=== PATIENT | female | born 1960 | race Caucasian/White ===

== ENCOUNTER → 2017-09-26 | Day surgery (SDC) | payer BC ==
[~2017-09-26] MED LIST: LIDOCAINE 1% PF 2 ML VIAL. ID; LIDOCAINE 2% PF Vial for OR 5 ML VIAL.; MORPHINE SULFATE 2 MG/ML DISP.SYRIN. IV; ONDANSETRON PF 4 MG/2 ML VIAL. IV; PROCHLORPERAZINE 10 MG/2 ML VIAL. IV; PROPOFOL 40 ML IV; fentaNYL PF VIAL 100 MCG/2 ML VIAL IV
[2017-09-26] MEDS: IV RINGERS,LACTATED 1000ML 1,000 ML IV (11:36)
== END ==
LOC: SURG 11:03
DX: C18.7 Malignant neoplasm of sigmoid colon (principal); D12.5 Benign neoplasm of sigmoid colon; K64.1 Second degree hemorrhoids; I10 Essential (primary) hypertension; E66.9 Obesity, unspecified; M19.90 Unspecified osteoarthritis, unspecified site; Z98.890 Other specified postprocedural states; Z90.49 Acquired absence of other specified parts of digestive tract; Z72.89 Other problems related to lifestyle; Z87.891 Personal history of nicotine dependence; Z87.39 Personal history of other diseases of the musculoskeletal system and connective tissue
CPT/HCPCS: 45380; 45385; 88305; J2704

== ENCOUNTER → 2018-11-14 | Day surgery (SDC) | payer BC ==
[~2018-11-14] MED LIST changes: +ASPI-630 PO; +CARV6.2511 PO; +HYDR12.575 PO; +IV RINGERS,LACTATED 1000ML 1,000 ML IV SCH; -LIDOCAINE 1% PF 2 ML VIAL. ID; +LIDOCAINE 1% PF 2 ML VIAL. ID PRN; +LIDOCAINE 2% PF 5 ML VIAL. ONE; -LIDOCAINE 2% PF Vial for OR 5 ML VIAL.; +LISI-338 PO; +MELO15TA23 PO; +MIDAZOLAM HCL/PF 2 MG/2 ML VIAL. IV PRN; -MORPHINE SULFATE 2 MG/ML DISP.SYRIN. IV; +OMEP20TA63 PO; -ONDANSETRON PF 4 MG/2 ML VIAL. IV; -PROCHLORPERAZINE 10 MG/2 ML VIAL. IV; +PROPOFOL 20 ML IV ONE; -PROPOFOL 40 ML IV; +TRAM50TA PO; -fentaNYL PF VIAL 100 MCG/2 ML VIAL IV; +fentaNYL PF VIAL 100 MCG/2 ML VIAL IV PRN
[2018-11-14 09:56] VITALS: BP 129/75
--- NOTE | 2018-11-14 18:18 | HP ---
ADMIT DATE: 11/14/2018 REFERRING PHYSICIAN: Dione Atwood MD REASON FOR ADMISSION: Colon cancer followup. HISTORY OF PRESENT ILLNESS: A 57-year-old female with past medical history significant for hypertension, osteoarthrosis, history of colon cancer, status post resection, is seen for interval colon exam. Bowel habits are regular without diarrhea or constipation. There has been no melena and/or hematochezia. Weight and appetite are stable. She has recovered well from her surgery and has no additional complaints. PAST MEDICAL HISTORY: Hypertension, colon cancer and osteoarthrosis. ALLERGIES: None. MEDICATIONS: Aspirin, carvedilol, hydrochlorothiazide, lisinopril, meloxicam, omeprazole and tramadol. FAMILY AND SOCIAL HISTORY: She has family history of hypertension in both parents, diabetes with her mother. SOCIAL HISTORY: She is a smoker. Alcohol, social use. MEDICATIONS: As stated. PAST SURGICAL HISTORY: Colon resection and cholecystectomy. REVIEW OF SYSTEMS: Per records. PHYSICAL EXAMINATION: GENERAL: Reveals a well-nourished, well-developed female, alert, cooperative and in no acute distress. VITAL SIGNS: Temperature is 98, pulse 66 and respirations 20. HEENT: Normocephalic, atraumatic head. Pupils and extraocular muscles are not tested. Sclerae anicteric. NECK: Supple. LUNGS: Clear. CARDIOVASCULAR: Reveals an S1, S2 without S3, S4 or appreciable murmur. ABDOMEN: Reveals a soft abdomen, normal bowel sounds, without appreciable hepatosplenomegaly. EXTREMITIES: Reveals no cyanosis, clubbing or edema. IMPRESSION AND PLAN: History of colon cancer, status post resection. Surveillance exam is recommended at this time. Risks and benefits of procedure including risk of hemorrhage and perforation have been discussed. The patient is willing to proceed. SOFIA SERRANO MD DR: DYLAN/candido JOB#: [id number] / [id number]
== END ==
LOC: SURG 07:55
PROVIDERS: ATTEND Internal Medicine Gastroenterology
DX: Z12.11 Encounter for screening for malignant neoplasm of colon (principal); K64.0 First degree hemorrhoids; K63.89 Other specified diseases of intestine; I10 Essential (primary) hypertension; F17.210 Nicotine dependence, cigarettes, uncomplicated; Z85.038 Personal history of other malignant neoplasm of large intestine; Z87.39 Personal history of other diseases of the musculoskeletal system and connective tissue; Z72.89 Other problems related to lifestyle; Z90.49 Acquired absence of other specified parts of digestive tract; Z98.0 Intestinal bypass and anastomosis status
CPT/HCPCS: 45378; J2001; J2704

== ENCOUNTER 2020-09-23 19:38 | Inpatient (IN) | payer BC ==
[~2020-09-23] VITALS: Ht 167.6 cm; Wt 177.5 kg
[~2020-09-23 19:38] MED LIST changes: -IV RINGERS,LACTATED 1000ML 1,000 ML IV SCH; -LIDOCAINE 1% PF 2 ML VIAL. ID PRN; -LIDOCAINE 2% PF 5 ML VIAL. ONE; -LISI-338 PO; +LISI-517 PO; -MIDAZOLAM HCL/PF 2 MG/2 ML VIAL. IV PRN; -PROPOFOL 20 ML IV ONE; -fentaNYL PF VIAL 100 MCG/2 ML VIAL IV PRN
[2020-09-23] MEDS ORDERED: fentaNYL PF VIAL 100 MCG/2 ML VIAL IM ONE (20:00)
--- NOTE | 2020-09-23 22:08 | PHYS DOC ---
Past Medical History Past Medical History: Cancer, Hypertension, Other Additional Past Medical Histor: COLON CA,CHRONIC KNEE PAIN,CARDIOMYOPATHY Past Surgical History: Cholecystectomy, Tonsillectomy, Other Additional Past Surgical Histo: COLON RESECTION Smoking Status: Never Smoker Alcohol Use: None General Adult EDM: Chief Complaint: LOWER EXT PAIN HPI: HPI: Patient is a 59 year old [f__sex] who presents with [] Review of Systems: Review of Systems: Constitutional: Denies fever or chills Eyes: Denies redness or eye pain HENT: Denies nasal congestion or sore throat Respiratory: Denies cough or shortness of breath Cardiovascular: Denies chest pain or palpitations GI: Denies abdominal pain, nausea, or vomiting : Denies dysuria or hematuria Musculoskeletal: Denies back pain; reports left knee pain Integument: Denies rash or skin lesions Neurologic: Denies headache, focal weakness or sensory changes Complete systems were reviewed and found to be within normal limits, except as documented in this note. Heart Score: C/O Chest Pain: N/A Current Medications: Current Medications Medications (Trade) Dose Ordered Sig/Christopher Start Time Stop Time Status Last Admin Dose Admin Fentanyl Citrate (Fentanyl 2ml Vial) 50 mcg Q2HR PRN 09/23/20 22:15 09/24/20 22:14 UNV Ondansetron HCl (Zofran) 4 mg PRN Q8HRS PRN 09/23/20 22:15 09/24/20 22:14 UNV Allergies: Allergies: Allergies Coded Allergies Type Severity Reaction Last Updated Verified No Known Drug Allergies 11/14/18 No Physical Exam: PE: Constitutional: Well developed, morbidly obese, no acute distress, non-toxic appearance HENT: Normocephalic, atraumatic Eyes: Conjunctiva normal, no discharge Neck: Normal range of motion, supple Lungs & Thorax: No respiratory distress, equal chest rise and fall Skin: Warm, dry, no erythema, no rash Extremities: Left anterior knee tenderness, ROM limited secondary to pain, left DP and PT +2 Neurologic: Alert and oriented X 3, no focal deficits noted Psychologic: Affect normal, judgment normal Current Patient Data: Vital Signs: Vital Signs Date Time Temp Pulse Resp B/P (MAP) Pulse Ox O2 Delivery O2 Flow Rate FiO2 09/23/20 20:52 17 97 Room Air 09/23/20 19:38 98.2 76 198/91 (126) 98.2 EKG: EKG: [] Radiology/Procedures: Radiology/Procedures: [] Course & Med Decision Making: Course & Med Decision Making Pertinent Labs and Imaging studies reviewed. (See chart for details) Patient requiring admission for further evaluation and treatment. Discussed with Dr. De La Torre (hospitalist) who is in agreement with admission. Orthopedic consult ordered. Discussed findings and plan with patient, who acknowledges understanding and agreement. Tee Disclaimer: Tee Disclaimer: This electronic medical record was generated, in whole or in part, using a voice recognition dictation system. Splinting Splinting : Location: Left knee Pre-Made Type: YVROSE bandage Pre-Proc Neuro Vasc Exam: normal Post-Proc Neuro Vasc Exam: normal, unchanged from pre-exam Departure Departure Impression: Primary Impression: Intractable pain Additional Impression: Knee pain, left Qualified Codes: M25.562 - Pain in left knee; G89.29 - Other chronic pain Disposition: ADMITTED INPATIENT Admitting Physician: SALAS Cleaning) Condition: STABLE Referrals: PAN NUÑEZ MD (PCP) JOSE ALBERTO LOPEZ DO Sep 23, 2020 22:07
[2020-09-23] MEDS ORDERED: fentaNYL PF VIAL 100 MCG/2 ML VIAL IV PRN (22:15)
[2020-09-23] MEDS ORDERED: ONDANSETRON PF 4 MG/2 ML VIAL. IV PRN (22:15)
[2020-09-23] MEDS ORDERED: fentaNYL PF VIAL 100 MCG/2 ML VIAL IVP ONE (22:30)
--- NOTE | 2020-09-23 23:23 | RAD ---
EXAM: AP, lateral and oblique views of the left knee DATE: 09/23/2020 8:12 PM CLINICAL INDICATION: Reason: Chronic pain / Spl. Instructions: / History: COMPARISON: None. FINDINGS: Negative for acute or subacute fracture. Moderate to severe medial joint space narrowing with tricom partmental osteophytes. Negative focal soft tissue swelling. Negative retained radiopaque foreign bod y. There is no large joint effusion. IMPRESSION: 1. No evidence of acute fracture or dislocation. 2. Severe left knee joint osteoarthritis Electronically signed by: Cruz Sethi MD (09/23/2020 11:21 PM) MARIANO
[2020-09-23 23:56] LABS: BASO # 0.1 x10^3/uL (0.0-0.2); BASO % 1 % (0-3); EOS # 0.1 x10^3/uL (0.0-0.7); EOS % 1 % (0-3); HEMATOCRIT 43.4 % (36.0-47.0); HEMOGLOBIN 14.6 g/dL (12.0-15.5); LYMPH % 17 % (24-48); MEAN CORPUSCULAR HEMOGLOBIN 31 pg (25-35); MEAN CORPUSCULAR HGB CONC 34 g/dL (31-37); MEAN CORPUSCULAR VOLUME 93 fL (79-100); MONO # 0.9 x10^3/uL (0.0-1.1); MONO % 7 % (0-9); NEUT # 8.9 x10^3/uL (1.8-7.7); NEUT % 75 % (31-73); PLATELET COUNT 424 x10^3/uL (140-400); RED BLOOD COUNT 4.67 x10^6/uL (3.50-5.40); RED CELL DISTRIBUTION WIDTH 14.1 % (11.5-14.5); WHITE BLOOD COUNT 11.9 x10^3/uL (4.0-11.0)
[2020-09-24] VITALS (7 sets, daily range): BP systolic 114–154; BP diastolic 60–87
--- NOTE | 2020-09-24 | NUR ---
ADMISSION Pt arrival to unit from ER at this time via ER cart. Pt unable to transfer her self from cart to unit bed so multiple staff members had to slide her over to unit bed, room 205. Pt has significant Left knee pain with movement 8/. PRN pain medication given for this, see MAR with improvement in pain level. Pt states she heard a loud "pop" noise come from her left knee when transferring from a wheelchair today at home with significant pain following that prompted her to come to the hospital. For the past two weeks, pain in that knee has been pretty debilitating for her and she had an orthopedic consult scheduled for this coming week for it. She also saw her primary care physician a few days ago who prescribed prednisone for possible arthritis relief and hydrocodone prn for the pain. Pt oriented to unit settings, call light, high fall precautions. Pt verbalized understanding. Items and call light in reach. Admission questions completed with pt at this time.
[2020-09-24 00:06] LABS: CALCIUM 10.6 mg/dL (8.5-10.1); CREATININE 1.6 mg/dL (0.6-1.0); POTASSIUM 4.9 mmol/L (3.5-5.1)
[2020-09-24 00:13] LABS: ALBUMIN 4.5 g/dL (3.4-5.0); ALBUMIN/GLOBULIN RATIO 1.1 (1.0-1.7); MAGNESIUM 2.1 mg/dL (1.8-2.4); TOTAL BILIRUBIN 0.6 mg/dL (0.2-1.0); TOTAL PROTEIN 8.6 g/dL (6.4-8.2)
[2020-09-24] MEDS: HYDROmorphone 2 MG/ML VIAL IVP PRN ×5 (00:48→21:33)
[2020-09-24] MEDS ORDERED: METH4TAB6 PO (03:13)
[2020-09-24] MEDS ORDERED: HYDR-2767 PO (03:13)
[2020-09-24] MEDS: methylPREDNISolone SOD SUCC PF 40 MG/ML VIAL. IV SCH ×3 (09:02→20:57)
--- NOTE | 2020-09-24 11:30 | PDOC1 ---
History and Physical Date of Admission Date of Admission DATE: 09/24/20 TIME: 11:29 Identification/Chief Complaint Chief Complaint left knee pain with movement 11/29 History of Present Illness History of Present Illness 59 YR OLD FEMALE seen in ER with severe left kneev pain, unable to safely ambulate, cr elevated, is a high fall risk, ortho and nephrology consulted pain has been more severe x 3 weeks, very severe x 2 days, heard knee " pop" 2 days ago, now unable to raise knee, pain worse with any movement, MRI KNEE PEN DING ortho consult PT/OT FALL PRECAUTIONS PAIN CONTROL dvt prophylaxis Avoid nephrotoxins, hold babs trend renal fx Nephrology consult avoid nephrotoxins Past Medical History Past Medical History Past Medical History Past Medical History: Cancer, Hypertension, Other Additional Past Medical Histor: COLON CA,CHRONIC KNEE PAIN,CARDIOMYOPATHY Past Surgical History: Cholecystectomy, Tonsillectomy, Other Additional Past Surgical Histo: COLON RESECTION Smoking Status: Smoker Alcohol Use: social PAST MEDICAL HISTORY: Hypertension, colon cancer and osteoarthrosis. ALLERGIES: None. MEDICATIONS: Aspirin, carvedilol, hydrochlorothiazide, lisinopril, meloxicam, omeprazole and tramadol. FAMILY AND SOCIAL HISTORY: She has family history of hypertension in both parents, diabetes with her mother. SOCIAL HISTORY: She is a smoker. Alcohol, social use. fhx obesity Renal/: Chronic renal insuff Family History Family History: Hypertension Social History Smoke: No ALCOHOL: none Drugs: None Current Problem List Problem List Problems Medical Problems: (1) Intractable pain Status: Acute (2) Knee pain, left Status: Acute Current Medications Current Medications Current Medications Fentanyl Citrate (Fentanyl 2ml Vial) 75 mcg 1X ONCE IM Last administered on 09/23/20at 20:22; Start 09/23/20 at 20:00; Stop 09/23/20 at 20:01; Status DC Fentanyl Citrate (Fentanyl 2ml Vial) 50 mcg 1X ONCE IVP Last administered on 09/23/20at 22:30; Start 09/23/20 at 22:30; Stop 09/23/20 at 22:31; Status DC Ondansetron HCl (Zofran) 4 mg PRN Q8HRS PRN IV NAUSEA/VOMITING 1ST CHOICE; Start 09/23/20 at 22:15; Stop 09/24/20 at 22:14 Fentanyl Citrate (Fentanyl 2ml Vial) 50 mcg PRN Q2HRS PRN IV SEVERE PAIN 7-10; Start 09/23/20 at 22:15; Stop 09/23/20 at 23:55; Status DC Hydromorphone HCl (Dilaudid) 0.5 mg PRN Q4HRS PRN IVP SEVERE PAIN 7-10 Last administered on 09/24/20at 09:04; Start 09/24/20 at 00:00 Methylprednisolone Sodium Succinate (SOLU-Medrol 40MG VIAL) 40 mg Q8HRS IV Last administered on 09/24/20at 09:02; Start 09/24/20 at 08:30 Active Scripts Active Reported Methylprednisolone 4 Mg Tab.ds.pk 1 Tab PO UD Hydrocodone-Acetamin 10-325 mg (Hydrocodone/Acetaminophen) 1 Each Tablet 1 Tab PO PRN Q6HRS PRN Tramadol Hcl 50 Mg Tablet 50 Mg PO Q6HRS PRN Prilosec Otc (Omeprazole Magnesium) 20 Mg Tablet.dr 20 Mg PO DAILY Aspirin 81 Mg Tab.chew 81 Mg PO HEART Hydrochlorothiazide Capsule (Hydrochlorothiazide) 12.5 Mg Capsule 25 Mg PO DAILY Meloxicam 15 Mg Tablet 15 Mg PO DAILY Carvedilol (Carvedilol) 6.25 Mg Tablet 6.25 Mg PO BIDWMEALS Lisinopril 5 Mg Tablet 5 Mg PO DAILY Allergies Allergies: Coded Allergies: No Known Drug Allergies (Unverified , 11/14/18) ROS Review of System Constitutional: Denies fever or chills Eyes: Denies redness or eye pain HENT: Denies nasal congestion or sore throat Respiratory: Denies cough or shortness of breath Cardiovascular: Denies chest pain or palpitations GI: Denies abdominal pain, nausea, or vomiting : Denies dysuria or hematuria Musculoskeletal: Denies back pain;// reports severe left knee pain Integument: Denies rash or skin lesions Neurologic: Denies headache, focal weakness or sensory changes 14 pt systems were reviewed and found to be within normal limits, except as doc umented General: No: Chills, Night Sweats, Fatigue, Malaise, Appetite, Other ALLERGY AND IMMUNOLOGY: No: Hives, Insect Bite Sensitivity, Itchy/Watery Eyes, Nasal Congestion, Post Nasal Drip, Seasonal Allergies, Other Hematological and Lymphatic: No: Bleeding Problems, Blood Clots, Blood Transfusions, Brusing, Night Sweats, Pallor, Swollen Lymph Nodes, Other Respiratory: No: Cough, Hemoptysis, Orthopnea, Pleuritic Pain, Shortness of breath, SOB with excertion, Sputum Changes, Stridor, Tachypnea, Wheezing, Other Cardiovascular: No Chest Pain, No Palpitations, No Orthopnea, No Paroxysmal Noc. Dyspnea, No Edema, No Lt Headedness, No Other Musculoskeletal: Yes Gait Disturbance, Yes Joint Pain, Yes Joint Stiffness, Yes Joint Swelling, Yes Muscular Weakness, Yes Pain In: (left knee) Neurological: Yes Gait Disturbance; No Behavorial Changes, No Bowel/Bladder ControlChng, No Confusion, No Dizziness, No Headaches, No Impaired Coord/balance, No Memory Loss, No Numbness/Tingling, No Seizures, No Speech Problems, No Tremors, No Visual Changes, No Weakness, No Other Skin: No Dry Skin, No Eczema, No Hair Changes, No Lumps, No Mole Changes, No Mottling, No Nail Changes, No Pruritus, No Rash, No Skin Lesion Changes, No Other, No Acne Physical Exam General: Alert, Oriented X3, Cooperative, No acute distress, mild distress HEENT: Atraumatic, PERRLA, EOMI, Mucous membr. moist/pink Lungs: Clear to auscultation, Normal air movement Heart: S1S2, RRR, no thrills, no rubs, no gallops Breasts: Not examined Abdomen: Normal bowel sounds, Soft, No tenderness, No hepatosplenomegaly Rectal Exam: not examined Extremities: No clubbing, No cyanosis Skin: No rashes Neuro: Normal speech, Sensation intact, Cranial nerves 3-12 NL Psych/Mental Status: Mental status NL, Mood NL Vitals Vitals Vital Signs Date Time Temp Pulse Resp B/P (MAP) Pulse Ox O2 Delivery O2 Flow Rate FiO2 09/24/20 09:34 98 Room Air 09/24/20 07:00 97.9 74 20 114/64 (81) 97.9 Labs Labs Laboratory Tests Test 09/23/20 23:47 White Blood Count 11.9 x10^3/uL (4.0-11.0) Red Blood Count 4.67 x10^6/uL (3.50-5.40) Hemoglobin 14.6 g/dL (12.0-15.5) Hematocrit 43.4 % (36.0-47.0) Mean Corpuscular Volume 93 fL (79-100) Mean Corpuscular Hemoglobin 31 pg (25-35) Mean Corpuscular Hemoglobin Concent 34 g/dL (31-37) Red Cell Distribution Width 14.1 % (11.5-14.5) Platelet Count 424 x10^3/uL (140-400) Neutrophils (%) (Auto) 75 % (31-73) Lymphocytes (%) (Auto) 17 % (24-48) Monocytes (%) (Auto) 7 % (0-9) Eosinophils (%) (Auto) 1 % (0-3) Basophils (%) (Auto) 1 % (0-3) Neutrophils # (Auto) 8.9 x10^3/uL (1.8-7.7) Lymphocytes # (Auto) 2.0 x10^3/uL (1.0-4.8) Monocytes # (Auto) 0.9 x10^3/uL (0.0-1.1) Eosinophils # (Auto) 0.1 x10^3/uL (0.0-0.7) Basophils # (Auto) 0.1 x10^3/uL (0.0-0.2) Sodium Level 140 mmol/L (136-145) Potassium Level 4.9 mmol/L (3.5-5.1) Chloride Level 104 mmol/L (98-107) Carbon Dioxide Level 24 mmol/L (21-32) Anion Gap 12 (6-14) Blood Urea Nitrogen 40 mg/dL (7-20) Creatinine 1.6 mg/dL (0.6-1.0) Estimated GFR (Cockcroft-Gault) 33.0 BUN/Creatinine Ratio 25 (6-20) Glucose Level 104 mg/dL (70-99) Calcium Level 10.6 mg/dL (8.5-10.1) Magnesium Level 2.1 mg/dL (1.8-2.4) Total Bilirubin 0.6 mg/dL (0.2-1.0) Aspartate Amino Transf (AST/SGOT) 19 U/L (15-37) Alanine Aminotransferase (ALT/SGPT) 29 U/L (14-59) Alkaline Phosphatase 107 U/L (46-116) Total Protein 8.6 g/dL (6.4-8.2) Albumin 4.5 g/dL (3.4-5.0) Albumin/Globulin Ratio 1.1 (1.0-1.7) Laboratory Tests Test 09/23/20 23:47 White Blood Count 11.9 x10^3/uL (4.0-11.0) Red Blood Count 4.67 x10^6/uL (3.50-5.40) Hemoglobin 14.6 g/dL (12.0-15.5) Hematocrit 43.4 % (36.0-47.0) Mean Corpuscular Volume 93 fL (79-100) Mean Corpuscular Hemoglobin 31 pg (25-35) Mean Corpuscular Hemoglobin Concent 34 g/dL (31-37) Red Cell Distribution Width 14.1 % (11.5-14.5) Platelet Count 424 x10^3/uL (140-400) Neutrophils (%) (Auto) 75 % (31-73) Lymphocytes (%) (Auto) 17 % (24-48) Monocytes (%) (Auto) 7 % (0-9) Eosinophils (%) (Auto) 1 % (0-3) Basophils (%) (Auto) 1 % (0-3) Neutrophils # (Auto) 8.9 x10^3/uL (1.8-7.7) Lymphocytes # (Auto) 2.0 x10^3/uL (1.0-4.8) Monocytes # (Auto) 0.9 x10^3/uL (0.0-1.1) Eosinophils # (Auto) 0.1 x10^3/uL (0.0-0.7) Basophils # (Auto) 0.1 x10^3/uL (0.0-0.2) Sodium Level 140 mmol/L (136-145) Potassium Level 4.9 mmol/L (3.5-5.1) Chloride Level 104 mmol/L (98-107) Carbon Dioxide Level 24 mmol/L (21-32) Anion Gap 12 (6-14) Blood Urea Nitrogen 40 mg/dL (7-20) Creatinine 1.6 mg/dL (0.6-1.0) Estimated GFR (Cockcroft-Gault) 33.0 BUN/Creatinine Ratio 25 (6-20) Glucose Level 104 mg/dL (70-99) Calcium Level 10.6 mg/dL (8.5-10.1) Magnesium Level 2.1 mg/dL (1.8-2.4) Total Bilirubin 0.6 mg/dL (0.2-1.0) Aspartate Amino Transf (AST/SGOT) 19 U/L (15-37) Alanine Aminotransferase (ALT/SGPT) 29 U/L (14-59) Alkaline Phosphatase 107 U/L (46-116) Total Protein 8.6 g/dL (6.4-8.2) Albumin 4.5 g/dL (3.4-5.0) Albumin/Globulin Ratio 1.1 (1.0-1.7) Images Images [facility] Accession Number: [id number] . 01 Material submitted: . PART A: SIGMOID POLYPS 20-40 CM PART B: SIGMOID COLON MASS . 01 Clinical history: . CRCS/Rectal bleed . 02 Diagnosis: A. Colon biopsies, sigmoid polyps 20-40 cm: - Tubular and tubulovillous adenomas. . B. Colon biopsies, sigmoid colon mass: - Adenocarcinoma, moderately-well differentiated. [facility]/09/27/2017 PATIENT: NHI BARNES ACCOUNT: [id number] : 1960 LOCATION: [facility] AGE: 59 SEX: F EXAM STATUS: ADM IN ORD. PHYSICIAN: JOSE ALBERTO LOPEZ DO REASON: Chronic pain PROCEDURE: KNEE LEFT 3V EXAM: AP, lateral and oblique views of the left knee DATE: 09/23/2020 8:12 PM CLINICAL INDICATION: Reason: Chronic pain / Spl. Instructions: / History: COMPARISON: None. FINDINGS: Negative for acute or subacute fracture. Moderate to severe medial joint space narrowing with tricompartmental osteophytes. Negative focal soft tissue swelling. Negative retained radiopaque foreign body. There is no large joint effusion. IMPRESSION: 1. No evidence of acute fracture or dislocation. 2. Severe left knee joint osteoarthritis Electronically signed by: Cruz Magaña MD (09/23/2020 11:21 PM) [facility] DICTATED and SIGNED BY: CRUZ MAGAÑA MD DATE: 09/23/20 [id number] VTE Prophylaxis Ordered VTE Prophylaxis Devices: Contraindicated VTE Pharmacological Prophylaxi: Yes Assessment/Plan Assessment/Plan IMPRESSION: Gait instability, high fall risk Intractable left knee pain Severe left knee joint osteoarthritis hx colon ADENOCARCINOMA Super Morbid obesity MAURICIO HTN plan admit ortho consult PT/OT FALL PRECAUTIONS PAIN CONTROL dvt prophylaxis Avoid nephrotoxins, hold babs trend renal fx Nephrology consult D/W RN Justifications for Admission Other Justification MATTHEW JOHNSON MD Sep 24, 2020 11:30
[2020-09-24] MEDS ORDERED: LISINOPRIL 5 MG TABLET. PO SCH (12:00)
[2020-09-24] MEDS: ASPIRIN CHEWABLE 81 MG TABLET. PO SCH (12:52)
[2020-09-24] MEDS: hydroCHLOROthiazide 12.5 MG CAPSULE PO SCH (12:52)
[2020-09-24] MEDS: PANTOPRAZOLE 40 MG TABLET.DR. PO SCH (12:52)
[2020-09-24] MEDS: CARVEDILOL 6.25 MG TABLET. PO SCH ×2 (12:53→17:27)
[2020-09-24] MEDS: MELOXICAM 7.5 MG TABLET PO SCH (12:55)
[2020-09-24] MEDS ORDERED: diphenhydrAMINE 50 MG/ML VIAL IVP PRN (13:30)
[2020-09-24] MEDS ORDERED: SODIUM PHOSPHATES 19/7GM 133 ML ENEMA. PR PRN (13:30)
[2020-09-24] MEDS ORDERED: ALBUTEROL SULFATE 2.5 MG/3 ML NEBU. NEB PRN (13:30)
[2020-09-24] MEDS ORDERED: guaiFENesin ORAL 200 MG/10 ML LIQUID. PO PRN (13:30)
[2020-09-24] MEDS ORDERED: ACETAMINOPHEN 325 MG TABLET. PO PRN (13:30)
[2020-09-24] MEDS ORDERED: 0.9 % SODIUM CHLORIDE 10 ML DISP.SYRIN. IV PRN (13:30)
[2020-09-24] MEDS ORDERED: MAG HYDROX/ALUMINUM HYD/SIMETH 30 ML ORAL.SUSP PO PRN (13:30)
[2020-09-24] MEDS ORDERED: cloNIDine HCL 0.1 MG TABLET PO PRN (13:30)
[2020-09-24 15:42] LABS: BILIRUBIN,URINE NEGATIVE (NEG); CLARITY,URINE CLEAR; COLOR,URINE YELLOW; NITRITE,URINE NEGATIVE (NEG); PROTEIN,URINE NEGATIVE (NEG-TRACE); UROBILINOGEN,URINE 0.2 mg/dL (0.2 mg/dL)
[2020-09-24 15:51] LABS: HYALINE CASTS, URINE MODERATE /HPF
[2020-09-24 15:52] LABS: BACTERIA,URINE 0 /HPF (0-FEW); RBC,URINE 0 /HPF (0-2); WBC,URINE 0 /HPF (0-4)
[2020-09-24] MEDS: HYDROcodone/APAP 10/325 1 TAB TABLET PO PRN (17:28)
--- NOTE | 2020-09-24 18:19 | RAD ---
EXAM: Renal sonogram. HISTORY: Renal insufficiency. TECHNIQUE: Sonographic imaging of the kidneys and bladder was performed. COMPARISON: None. FINDINGS: The kidneys are normal in size. No solid or cystic renal lesion is seen. There is no hydron ephrosis. The bladder is unremarkable. The prevoid bladder volume is 50 cc. The ureteral jets are bot h seen. IMPRESSION: Sonographically unremarkable kidneys. Electronically signed by: Pao Steele MD (09/24/2020 6:17 PM) [facility]
[2020-09-24] MEDS: ZOLPIDEM 5 MG TABLET. PO PRN (21:05)
--- NOTE | 2020-09-24 21:48 | PDOC2 ---
Consult: Patient seen and evaluated September 24, 2020 at 7:15 AM Patient seen and evaluated secondary to intractable left knee pain. No specific injury. She has had pain and known arthritis for the last 6 months. She is morbidly obese. She states over the last 3 to 4 days she has been progressively having worsening pain and difficulty with ambulation. Denies any fever chills or constitutional symptoms of infection or injury. PAST MEDICAL/SURGICAL/FAMILY HISTORY/SOCIAL HISTORY/ AND ROS were reviewed on intake to include multiple system review. Copied to EHR. EXAM: -------- Well-nourished well-developed patient General: No acute distress. HEENT: Normocephalic. Respiratory: Respirations are non-labored. Cardiovascular: No edema. Abdomen: soft Neurologic: Alert. Psychiatric: Cooperative. Left knee reveals normal contour and the skin is intact. There is tenderness o surya the joint line. Crepitation through range of motion. Positive Apley's. Limited range of motion although there is a positive bounce home test. Pain with patellofemoral compression. Strength is symmetric with the contralateral extremity. Negative Lelli test. Distal neurovascular status is intact. ASSESSMENT & PLAN: Left knee osteoarthritis severe in the face of morbid obesity I recommended some progressive steroids to see how she does over the next 24 hours and then have her work with physical therapy if her pain is improving. Unfortunately she is not a surgical candidate due to her obesity. We will continue to follow her care progression. CARTER NORWOOD DO Sep 24, 2020 21:48
[2020-09-25] MEDS: HYDROcodone/APAP 10/325 1 TAB TABLET PO PRN ×3 (02:41→20:48)
[2020-09-25] MEDS: HYDROmorphone 2 MG/ML VIAL IVP PRN ×3 (02:41→23:38)
[2020-09-25 03:00] VITALS: BP 160/84
[2020-09-25 04:25] LABS: BASO % 0 % (0-3); EOS % 0 % (0-3); HEMATOCRIT 38.4 % (36.0-47.0); HEMOGLOBIN 12.8 g/dL (12.0-15.5); LYMPH # 0.6 x10^3/uL (1.0-4.8); LYMPH % 6 % (24-48); MEAN CORPUSCULAR HEMOGLOBIN 31 pg (25-35); MEAN CORPUSCULAR HGB CONC 33 g/dL (31-37); MEAN CORPUSCULAR VOLUME 94 fL (79-100); MONO # 0.3 x10^3/uL (0.0-1.1); MONO % 3 % (0-9); NEUT % 91 % (31-73); PLATELET COUNT 344 x10^3/uL (140-400); RED CELL DISTRIBUTION WIDTH 14.2 % (11.5-14.5); WHITE BLOOD COUNT 9.9 x10^3/uL (4.0-11.0)
[2020-09-25 04:40] LABS: ALBUMIN 3.4 g/dL (3.4-5.0); ALBUMIN/GLOBULIN RATIO 0.9 (1.0-1.7); CALCIUM 9.6 mg/dL (8.5-10.1); CREATININE 1.5 mg/dL (0.6-1.0); GFR 35.5; TOTAL BILIRUBIN 0.4 mg/dL (0.2-1.0); TOTAL PROTEIN 7.2 g/dL (6.4-8.2)
[2020-09-25 05:27] LABS: % BANDS 5 % (0-9); % LYMPHS 6 % (24-48); % METAS 1 % (0-0); % OTHERS 1 % (0-0); % SEGS 87 % (35-66); PLT ESTIMATE ADEQUATE (ADEQUATE)
[2020-09-25] MEDS: methylPREDNISolone SOD SUCC PF 40 MG/ML VIAL. IV SCH ×3 (05:49→21:56)
[2020-09-25 07:00] VITALS: BP 170/91
[2020-09-25] MEDS: PANTOPRAZOLE 40 MG TABLET.DR. PO SCH (08:50)
[2020-09-25] MEDS: MELOXICAM 7.5 MG TABLET PO SCH (08:53)
[2020-09-25] MEDS: CARVEDILOL 6.25 MG TABLET. PO SCH ×2 (08:54→17:25)
[2020-09-25] MEDS: hydroCHLOROthiazide 12.5 MG CAPSULE PO SCH (08:55)
[2020-09-25] MEDS: ASPIRIN CHEWABLE 81 MG TABLET. PO SCH (08:55)
[2020-09-25 11:00] VITALS: BP 151/67
--- NOTE | 2020-09-25 11:02 | PDOC ---
PROGRESS NOTES Date of Service: DATE: 09/25/20 TIME: 10:50 Chief Complaint Chief Complaint VTE Prophylaxis Ordered VTE Prophylaxis Devices: Contraindicated VTE Pharmacological Prophylaxi: Yes Assessment/Plan Assessment/Plan IMPRESSION: Gait instability, high fall risk Intractable left knee pain Severe left knee joint osteoarthritis hx colon ADENOCARCINOMA Super Morbid obesity MAURICIO HTN plan admit ortho consult PT/OT FALL PRECAUTIONS PAIN CONTROL dvt prophylaxis Avoid nephrotoxins, hold babs trend renal fx Nephrology consult D/W RN Justifications for Admission Other Justification Discharge Recommendations * Acute Rehab facility Discharge Recommendation - DME * Rolling Walker needed * in order to complete ADLs * and ambulation safely History of Present Illness History of Present Illness Identification/Chief Complaint Chief Complaint left knee pain with movement 11/29 History of Present Illness History of Present Illness 59 YR OLD FEMALE seen in ER with severe left kneev pain, unable to safely ambulate, cr elevated, is a high fall risk, ortho and nephrology consulted pain has been more severe x 3 weeks, very severe x 2 days, heard knee " pop" 2 days ago, now unable to raise knee, pain worse with any movement, MRI KNEE PENDING ortho consult PT/OT FALL PRECAUTIONS PAIN CONTROL dvt prophylaxis Avoid nephrotoxins, hold babs trend renal fx Nephrology consult avoid nephrotoxins Past Medical History Past Medical History Past Medical History Past Medical History: Cancer, Hypertension, Other Additional Past Medical Histor: COLON CA,CHRONIC KNEE PAIN,CARDIOMYOPATHY Past Surgical History: Cholecystectomy, Tonsillectomy, Other Additional Past Surgical Histo: COLON RESECTION Smoking Status: Smoker Alcohol Use: social PAST MEDICAL HISTORY: Hypertension, colon cancer and osteoarthrosis. ALLERGIES: None. MEDICATIONS: Aspirin, carvedilol, hydrochlorothiazide, lisinopril, meloxicam, omeprazole and tramadol. FAMILY AND SOCIAL HISTORY: She has family history of hypertension in both parents, diabetes with her mother. SOCIAL HISTORY: She is a smoker. Alcohol, social use. fhx obesity Renal/: Chronic renal insuff Family History Family History: Hypertension Social History Smoke: No ALCOHOL: none Drugs: None Current Problem List Problem List Problems Medical Problems: (1) Intractable pain Status: Acute (2) Knee pain, left Status: Acute Current Medications Current Medications Current Medications Fentanyl Citrate (Fentanyl 2ml Vial) 75 mcg 1X ONCE IM Last administered on 09/23/20at 20:22; Start 09/23/20 at 20:00; Stop 09/23/20 at 20:01; Status DC Fentanyl Citrate (Fentanyl 2ml Vial) 50 mcg 1X ONCE IVP Last administered on 09/23/20at 22:30; Start 09/23/20 at 22:30; Stop 09/23/20 at 22:31; Status DC Ondansetron HCl (Zofran) 4 mg PRN Q8HRS PRN IV NAUSEA/VOMITING 1ST CHOICE; Start 09/23/20 at 22:15; Stop 09/24/20 at 22:14 Fentanyl Citrate (Fentanyl 2ml Vial) 50 mcg PRN Q2HRS PRN IV SEVERE PAIN 7-10; Start 09/23/20 at 22:15; Stop 09/23/20 at 23:55; Status DC Hydromorphone HCl (Dilaudid) 0.5 mg PRN Q4HRS PRN IVP SEVERE PAIN 7-10 Last administered on 09/24/20at 09:04; Start 09/24/20 at 00:00 Methylprednisolone Sodium Succinate (SOLU-Medrol 40MG VIAL) 40 mg Q8HRS IV Last administered on 09/24/20at 09:02; Start 09/24/20 at 08:30 Active Scripts Active Reported Methylprednisolone 4 Mg Tab.ds.pk 1 Tab PO UD Hydrocodone-Acetamin 10-325 mg (Hydrocodone/Acetaminophen) 1 Each Tablet 1 Tab PO PRN Q6HRS PRN Tramadol Hcl 50 Mg Tablet 50 Mg PO Q6HRS PRN Prilosec Otc (Omeprazole Magnesium) 20 Mg Tablet.dr 20 Mg PO DAILY Aspirin 81 Mg Tab.chew 81 Mg PO HEART Hydrochlorothiazide Capsule (Hydrochlorothiazide) 12.5 Mg Capsule 25 Mg PO DAILY Meloxicam 15 Mg Tablet 15 Mg PO DAILY Carvedilol (Carvedilol) 6.25 Mg Tablet 6.25 Mg PO BIDWMEALS Lisinopril 5 Mg Tablet 5 Mg PO DAILY Allergies Allergies: Coded Allergies: No Known Drug Allergies (Unverified , 11/14/18) ROS Review of System Constitutional: Denies fever or chills Eyes: Denies redness or eye pain HENT: Denies nasal congestion or sore throat Respiratory: Denies cough or shortness of breath Cardiovascular: Denies chest pain or palpitations GI: Denies abdominal pain, nausea, or vomiting : Denies dysuria or hematuria Musculoskeletal: Denies back pain;// reports severe left knee pain Integument: Denies rash or skin lesions Neurologic: Denies headache, focal weakness or sensory changes 14 pt systems were reviewed and found to be within normal limits, except as documented General: No: Chills, Night Sweats, Fatigue, Malaise, Appetite, Other ALLERGY AND IMMUNOLOGY: No: Hives, Insect Bite Sensitivity, Itchy/Watery Eyes, Nasal Congestion, Post Nasal Drip, Seasonal Allergies, Other Hematological and Lymphatic: No: Bleeding Problems, Blood Clots, Blood Transfusions, Brusing, Night Sweats, Pallor, Swollen Lymph Nodes, Other Respiratory: No: Cough, Hemoptysis, Orthopnea, Pleuritic Pain, Shortness of breath, SOB with excertion, Sputum Changes, Stridor, Tachypnea, Wheezing, Other Cardiovascular: No Chest Pain, No Palpitations, No Orthopnea, No Paroxysmal Noc. Dyspnea, No Edema, No Lt Headedness, No Other Musculoskeletal: Yes Gait Disturbance, Yes Joint Pain, Yes Joint Stiffness, Yes Joint Swelling, Yes Muscular Weakness, Yes Pain In: (left knee) Neurological: Yes Gait Disturbance; No Behavorial Changes, No Bowel/Bladder ControlChng, No Confusion, No Dizz iness, No Headaches, No Impaired Coord/balance, No Memory Loss, No Numbness/Tingling, No Seizures, No Speech Problems, No Tremors, No Visual Changes, No Weakness, No Other Skin: No Dry Skin, No Eczema, No Hair Changes, No Lumps, No Mole Changes, No Mottling, No Nail Changes, No Pruritus, No Rash, No Skin Lesion Changes, No Other, No Acne Vitals Vitals Vital Signs Date Time Temp Pulse Resp B/P (MAP) Pulse Ox O2 Delivery O2 Flow Rate FiO2 09/25/20 10:11 98 Room Air 09/25/20 09:41 18 09/25/20 08:54 79 160/84 09/25/20 07:00 98.0 98.0 Physical Exam General: Alert, Oriented X3, Cooperative, No acute distress Heart: No murmurs Abdomen: Normal bowel sounds, Soft, No tenderness, No hepatosplenomegaly Extremities: No clubbing, No cyanosis Skin: No rashes Labs LABS * Ankle Pumps Supine Exercises Comments * began instruction, x10 reps Other Information * Pt requires a lot of encouragement and calm demenour when working with her. She is very anxious and emotional but willing to work Patient Stated Goal * to go home Rehab Potential to Achieve Goals * Fair Learning Preferences * One-on-One Instruction * Demonstration * Discussion Factors Facilitating Goal Achievement * Motivation level * Supportive caregiver * Prior level of function Problem List (body system elements) * Impaired fnctnl mobility * Edema * Strength * Obesity * ROM * Balance * Coordination * Knowledge-safe techniques * Pain Other Problems * anxiety Clinical Presentation * Evolving Evaluation Complexity Level * Moderate Complexity Pt/caregiver agrees with plan of care/goals * Yes Patient condition at conclusion of therapy * Pt in chair * Call light in reach * Phone in reach * PtIn no apparent distress * Pt denies further needs Communicated Patient Care With (Name, Title) * PAIGE Patterson, OTHayley Baker Goal 1 - Bed Mobility Assistance Required * Min Assistance Goal 1 Assessment * Appropriate - Continue Goal 2 - Transfers Assistance Required * Min Assistance Goal 2 - Transfer Type * Stand-Pivot Goal 2 Assessment * Appropriate - Continue Goal 3 - Ambulation Assistance Required * Min Assistance Goal 3 - Ambulation Distance * 10' Goal 3 - Ambulation Device * Roller Walker Goal 3 Assessment * Appropriate - Continue Frequency of Treatment Expected * 7 visits/week Duration of Treatment Expected * 2 weeks Discharge Recommendations * Acute Rehab facility Discharge Recommendation - DME * Rolling Walker needed * in order to complete ADLs * and ambulation safely Discharge Recommendation Comments * acute rehab Laboratory Tests Test 09/24/20 15:31 09/25/20 03:30 Urine Collection Type Unknown Urine Color Yellow Urine Clarity Clear Urine pH 5.0 (<5.0-8.0) Urine Specific [place] 1.020 (1.000-1.030) Urine Protein Negative mg/dL (NEG-TRACE) Urine Glucose (UA) Negative mg/dL (NEG) Urine Ketones (Stick) Negative mg/dL (NEG) Urine Blood Negative (NEG) Urine Nitrite Negative (NEG) Urine Bilirubin Negative (NEG) Urine Urobilinogen Dipstick 0.2 mg/dL (0.2 mg/dL) Urine Leukocyte Esterase Negative (NEG) Urine RBC 0 /HPF (0-2) Urine WBC 0 /HPF (0-4) Urine Squamous Epithelial Cells Few /LPF Urine Bacteria 0 /HPF (0-FEW) Urine Hyaline Casts Moderate /HPF Urine Mucus Mod /LPF White Blood Count 9.9 x10^3/uL (4.0-11.0) Red Blood Count 4.10 x10^6/uL (3.50-5.40) Hemoglobin 12.8 g/dL (12.0-15.5) Hematocrit 38.4 % (36.0-47.0) Mean Corpuscular Volume 94 fL (79-100) Mean Corpuscular Hemoglobin 31 pg (25-35) Mean Corpuscular Hemoglobin Concent 33 g/dL (31-37) Red Cell Distribution Width 14.2 % (11.5-14.5) Platelet Count 344 x10^3/uL (140-400) Neutrophils (%) (Auto) 91 % (31-73) Lymphocytes (%) (Auto) 6 % (24-48) Monocytes (%) (Auto) 3 % (0-9) Eosinophils (%) (Auto) 0 % (0-3) Basophils (%) (Auto) 0 % (0-3) Neutrophils # (Auto) 9.0 x10^3/uL (1.8-7.7) Lymphocytes # (Auto) 0.6 x10^3/uL (1.0-4.8) Monocytes # (Auto) 0.3 x10^3/uL (0.0-1.1) Eosinophils # (Auto) 0.0 x10^3/uL (0.0-0.7) Basophils # (Auto) 0.0 x10^3/uL (0.0-0.2) Segmented Neutrophils % 87 % (35-66) Band Neutrophils % 5 % (0-9) Lymphocytes % 6 % (24-48) Metamyelocytes % 1 % (0-0) Other Cells % 1 % (0-0) Platelet Estimate Adequate (ADEQUATE) Sodium Level 137 mmol/L (136-145) Potassium Level 5.0 mmol/L (3.5-5.1) Chloride Level 103 mmol/L (98-107) Carbon Dioxide Level 23 mmol/L (21-32) Anion Gap 11 (6-14) Blood Urea Nitrogen 50 mg/dL (7-20) Creatinine 1.5 mg/dL (0.6-1.0) Estimated GFR (Cockcroft-Gault) 35.5 BUN/Creatinine Ratio 33 (6-20) Glucose Level 160 mg/dL (70-99) Calcium Level 9.6 mg/dL (8.5-10.1) Total Bilirubin 0.4 mg/dL (0.2-1.0) Aspartate Amino Transf (AST/SGOT) 14 U/L (15-37) Alanine Aminotransferase (ALT/SGPT) 24 U/L (14-59) Alkaline Phosphatase 84 U/L (46-116) Total Protein 7.2 g/dL (6.4-8.2) Albumin 3.4 g/dL (3.4-5.0) Albumin/Globulin Ratio 0.9 (1.0-1.7) Assessment and Plan Assessmemt and Plan Problems Medical Problems: (1) Intractable pain Status: Acute (2) Knee pain, left Status: Acute Comment Review of Relevant I have reviewed the following items dilan (where applicable) has been applied. Labs Laboratory Tests Test 09/23/20 23:47 09/24/20 15:31 09/25/20 03:30 White Blood Count 11.9 x10^3/uL (4.0-11.0) 9.9 x10^3/uL (4.0-11.0) Red Blood Count 4.67 x10^6/uL (3.50-5.40) 4.10 x10^6/uL (3.50-5.40) Hemoglobin 14.6 g/dL (12.0-15.5) 12.8 g/dL (12.0-15.5) Hematocrit 43.4 % (36.0-47.0) 38.4 % (36.0-47.0) Mean Corpuscular Volume 93 fL (79-100) 94 fL (79-100) Mean Corpuscular Hemoglobin 31 pg (25-35) 31 pg (25-35) Mean Corpuscular Hemoglobin Concent 34 g/dL (31-37) 33 g/dL (31-37) Red Cell Distribution Width 14.1 % (11.5-14.5) 14.2 % (11.5-14.5) Platelet Count 424 x10^3/uL (140-400) 344 x10^3/uL (140-400) Neutrophils (%) (Auto) 75 % (31-73) 91 % (31-73) Lymphocytes (%) (Auto) 17 % (24-48) 6 % (24-48) Monocytes (%) (Auto) 7 % (0-9) 3 % (0-9) Eosinophils (%) (Auto) 1 % (0-3) 0 % (0-3) Basophils (%) (Auto) 1 % (0-3) 0 % (0-3) Neutrophils # (Auto) 8.9 x10^3/uL (1.8-7.7) 9.0 x10^3/uL (1.8-7.7) Lymphocytes # (Auto) 2.0 x10^3/uL (1.0-4.8) 0.6 x10^3/uL (1.0-4.8) Monocytes # (Auto) 0.9 x10^3/uL (0.0-1.1) 0.3 x10^3/uL (0.0-1.1) Eosinophils # (Auto) 0.1 x10^3/uL (0.0-0.7) 0.0 x10^3/uL (0.0-0.7) Basophils # (Auto) 0.1 x10^3/uL (0.0-0.2) 0.0 x10^3/uL (0.0-0.2) Sodium Level 140 mmol/L (136-145) 137 mmol/L (136-145) Potassium Level 4.9 mmol/L (3.5-5.1) 5.0 mmol/L (3.5-5.1) Chloride Level 104 mmol/L (98-107) 103 mmol/L (98-107) Carbon Dioxide Level 24 mmol/L (21-32) 23 mmol/L (21-32) Anion Gap 12 (6-14) 11 (6-14) Blood Urea Nitrogen 40 mg/dL (7-20) 50 mg/dL (7-20) Creatinine 1.6 mg/dL (0.6-1.0) 1.5 mg/dL (0.6-1.0) Estimated GFR (Cockcroft-Gault) 33.0 35.5 BUN/Creatinine Ratio 25 (6-20) 33 (6-20) Glucose Level 104 mg/dL (70-99) 160 mg/dL (70-99) Calcium Level 10.6 mg/dL (8.5-10.1) 9.6 mg/dL (8.5-10.1) Magnesium Level 2.1 mg/dL (1.8-2.4) Total Bilirubin 0.6 mg/dL (0.2-1.0) 0.4 mg/dL (0.2-1.0) Aspartate Amino Transf (AST/SGOT) 19 U/L (15-37) 14 U/L (15-37) Alanine Aminotransferase (ALT/SGPT) 29 U/L (14-59) 24 U/L (14-59) Alkaline Phosphatase 107 U/L (46-116) 84 U/L (46-116) Total Protein 8.6 g/dL (6.4-8.2) 7.2 g/dL (6.4-8.2) Albumin 4.5 g/dL (3.4-5.0) 3.4 g/dL (3.4-5.0) Albumin/Globulin Ratio 1.1 (1.0-1.7) 0.9 (1.0-1.7) Urine Collection Type Unknown Urine Color Yellow Urine Clarity Clear Urine pH 5.0 (<5.0-8.0) Urine Specific [place] 1.020 (1.000-1.030) Urine Protein Negative mg/dL (NEG-TRACE) Urine Glucose (UA) Negative mg/dL (NEG) Urine Ketones (Stick) Negative mg/dL (NEG) Urine Blood Negative (NEG) Urine Nitrite Negative (NEG) Urine Bilirubin Negative (NEG) Urine Urobilinogen Dipstick 0.2 mg/dL (0.2 mg/dL) Urine Leukocyte Esterase Negative (NEG) Urine RBC 0 /HPF (0-2) Urine WBC 0 /HPF (0-4) Urine Squamous Epithelial Cells Few /LPF Urine Bacteria 0 /HPF (0-FEW) Urine Hyaline Casts Moderate /HPF Urine Mucus Mod /LPF Segmented Neutrophils % 87 % (35-66) Band Neutrophils % 5 % (0-9) Lymphocytes % 6 % (24-48) Metamyelocytes % 1 % (0-0) Other Cells % 1 % (0-0) Platelet Estimate Adequate (ADEQUATE) Laboratory Tests Test 09/24/20 15:31 09/25/20 03:30 Urine Collection Type Unknown Urine Color Yellow Urine Clarity Clear Urine pH 5.0 (<5.0-8.0) Urine Specific [place] 1.020 (1.000-1.030) Urine Protein Negative mg/dL (NEG-TRACE) Urine Glucose (UA) Negative mg/dL (NEG) Urine Ketones (Stick) Negative mg/dL (NEG) Urine Blood Negative (NEG) Urine Nitrite Negative (NEG) Urine Bilirubin Negative (NEG) Urine Urobilinogen Dipstick 0.2 mg/dL (0.2 mg/dL) Urine Leukocyte Esterase Negative (NEG) Urine RBC 0 /HPF (0-2) Urine WBC 0 /HPF (0-4) Urine Squamous Epithelial Cells Few /LPF Urine Bacteria 0 /HPF (0-FEW) Urine Hyaline Casts Moderate /HPF Urine Mucus Mod /LPF White Blood Count 9.9 x10^3/uL (4.0-11.0) Red Blood Count 4.10 x10^6/uL (3.50-5.40) Hemoglobin 12.8 g/dL (12.0-15.5) Hematocrit 38.4 % (36.0-47.0) Mean Corpuscular Volume 94 fL (79-100) Mean Corpuscular Hemoglobin 31 pg (25-35) Mean Corpuscular Hemoglobin Concent 33 g/dL (31-37) Red Cell Distribution Width 14.2 % (11.5-14.5) Platelet Count 344 x10^3/uL (140-400) Neutrophils (%) (Auto) 91 % (31-73) Lymphocytes (%) (Auto) 6 % (24-48) Monocytes (%) (Auto) 3 % (0-9) Eosinophils (%) (Auto) 0 % (0-3) Basophils (%) (Auto) 0 % (0-3) Neutrophils # (Auto) 9.0 x10^3/uL (1.8-7.7) Lymphocytes # (Auto) 0.6 x10^3/uL (1.0-4.8) Monocytes # (Auto) 0.3 x10^3/uL (0.0-1.1) Eosinophils # (Auto) 0.0 x10^3/uL (0.0-0.7) Basophils # (Auto) 0.0 x10^3/uL (0.0-0.2) Segmented Neutrophils % 87 % (35-66) Band Neutrophils % 5 % (0-9) Lymphocytes % 6 % (24-48) Metamyelocytes % 1 % (0-0) Other Cells % 1 % (0-0) Platelet Estimate Adequate (ADEQUATE) Sodium Level 137 mmol/L (136-145) Potassium Level 5.0 mmol/L (3.5-5.1) Chloride Level 103 mmol/L (98-107) Carbon Dioxide Level 23 mmol/L (21-32) Anion Gap 11 (6-14) Blood Urea Nitrogen 50 mg/dL (7-20) Creatinine 1.5 mg/dL (0.6-1.0) Estimated GFR (Cockcroft-Gault) 35.5 BUN/Creatinine Ratio 33 (6-20) Glucose Level 160 mg/dL (70-99) Calcium Level 9.6 mg/dL (8.5-10.1) Total Bilirubin 0.4 mg/dL (0.2-1.0) Aspartate Amino Transf (AST/SGOT) 14 U/L (15-37) Alanine Aminotransferase (ALT/SGPT) 24 U/L (14-59) Alkaline Phosphatase 84 U/L (46-116) Total Protein 7.2 g/dL (6.4-8.2) Albumin 3.4 g/dL (3.4-5.0) Albumin/Globulin Ratio 0.9 (1.0-1.7) Medications Current Medications Fentanyl Citrate (Fentanyl 2ml Vial) 75 mcg 1X ONCE IM Last administered on 09/23/20at 20:22; Start 09/23/20 at 20:00; Stop 09/23/20 at 20:01; Status DC Fentanyl Citrate (Fentanyl 2ml Vial) 50 mcg 1X ONCE IVP Last administered on 09/23/20at 22:30; Start 09/23/20 at 22:30; Stop 09/23/20 at 22:31; Status DC Ondansetron HCl (Zofran) 4 mg PRN Q8HRS PRN IV NAUSEA/VOMITING 1ST CHOICE; Start 09/23/20 at 22:15; Stop 09/24/20 at 13:32; Status DC Fentanyl Citrate (Fentanyl 2ml Vial) 50 mcg PRN Q2HRS PRN IV SEVERE PAIN 7-10; Start 09/23/20 at 22:15; Stop 09/23/20 at 23:55; Status DC Hydromorphone HCl (Dilaudid) 0.5 mg PRN Q4HRS PRN IVP SEVERE PAIN 7-10 Last administered on 09/25/20 09:41; Start 09/24/20 at 00:00 Methylprednisolone Sodium Succinate (SOLU-Medrol 40MG VIAL) 40 mg Q8HRS IV Last administered on 09/25/20 05:49; Start 09/24/20 at 08:30 Aspirin (Aspirin Chewable) 81 mg DAILY07 PO Last administered on 09/25/20 08:55; Start 09/24/20 at 12:00 Carvedilol (Coreg) 6.25 mg BIDWMEALS PO Last administered on 09/25/20 08:54; Start 09/24/20 at 12:00 Hydrochlorothiazide (Microzide) 25 mg DAILY PO Last administered on 09/25/20 08:55; Start 09/24/20 at 12:00 Acetaminophen/ Hydrocodone Bitart (Lortab 10/325) 1 tab PRN Q6HRS PRN PO PAIN Last administered on 09/25/20 08:55; Start 09/24/20 at 11:45 Lisinopril (Prinivil) 5 mg DAILY PO Last administered on 09/24/20at 12:53; Start 09/24/20 at 12:00; Stop 09/24/20 at 13:40; Status DC Meloxicam (Mobic) 15 mg DAILY PO Last administered on 09/25/20 08:53; Start 09/24/20 at 12:00 Pantoprazole Sodium (Protonix) 40 mg DAILYAC PO Last administered on 09/25/20at 08:50; Start 09/24/20 at 12:00 Sodium Chloride (Normal Saline Flush) 3 ml QSHIFT PRN IV AFTER MEDS AND BLOOD DRAWS; Start 09/24/20 at 13:30 Ondansetron HCl (Zofran) 4 mg PRN Q4HRS PRN IV NAUSEA/VOMITING; Start 09/24/20 at 13:30 Zolpidem Tartrate (Ambien) 5 mg PRN QHS PRN PO INSOMNIA Last administered on 09/24/20at 21:05; Start 09/24/20 at 13:30 Acetaminophen (Tylenol) 650 mg PRN Q4HRS PRN PO TEMP OVER 100.4F OR MILD PAIN; Start 09/24/20 at 13:30 Al Hydroxide/Mg Hydroxide (Mylanta Plus Xs) 30 ml PRN DAILY PRN PO HEARTBURN / GAS; Start 09/24/20 at 13:30 Clonidine HCl (Catapres) 0.1 mg PRN Q6HRS PRN PO SBP>160 OR DBP>90; Start 09/24/20 at 13:30 Sodium Monofluorophosphate (Fleet Adult) 133 ml PRN DAILY PRN CA CONSTIPATION; Start 09/24/20 at 13:30 Diphenhydramine HCl (Benadryl) 25 mg PRN Q4HRS PRN IVP ITCHING; Start 09/24/20 at 13:30 Docusate Sodium (Colace) 100 mg PRN BID PRN PO HARD STOOLS; Start 09/24/20 at 13:30 Albuterol Sulfate (Ventolin Neb Soln) 2.5 mg PRN Q4HRS PRN NEB SHORTNESS OF BREATH; Start 09/24/20 at 13:30 Guaifenesin (Robitussin) 200 mg PRN Q4HRS PRN PO COUGH; Start 09/24/20 at 13:30 Lorazepam (Ativan) 0.5 mg PRN Q4HRS PRN PO ANXIETY / AGITATION; Start 09/24/20 at 13:30 Enoxaparin Sodium (Lovenox 60mg Syringe) 60 mg Q12HR SQ Last administered on 09/25/20at 08:50; Start 09/24/20 at 21:00 Active Scripts Active Reported Methylprednisolone 4 Mg Tab.ds.pk 1 Tab PO UD Hydrocodone-Acetamin 10-325 mg (Hydrocodone/Acetaminophen) 1 Each Tablet 1 Tab PO PRN Q6HRS PRN Tramadol Hcl 50 Mg Tablet 50 Mg PO Q6HRS PRN Prilosec Otc (Omeprazole Magnesium) 20 Mg Tablet.dr 20 Mg PO DAILY Aspirin 81 Mg Tab.chew 81 Mg PO HEART Hydrochlorothiazide Capsule (Hydrochlorothiazide) 12.5 Mg Capsule 25 Mg PO DAILY Meloxicam 15 Mg Tablet 15 Mg PO DAILY Carvedilol (Carvedilol) 6.25 Mg Tablet 6.25 Mg PO BIDWMEALS Vitals/I & O Vital Sign - Last 24 Hours 09/24/20 09/24/20 09/24/20 09/24/20 11:00 12:53 12:53 12:59 Temp 98.0 98.0 Pulse 75 75 75 Resp 20 B/P (MAP) 135/65 (88) 135/65 135/65 Pulse Ox 98 98 O2 Delivery Room Air Room Air 09/24/20 09/24/20 09/24/20 09/24/20 13:29 15:00 17:27 17:28 Temp 97.6 97.6 Pulse 69 69 Resp 20 B/P (MAP) 129/68 (88) 129/68 Pulse Ox 98 98 O2 Delivery Room Air Room Air Room Air 09/24/20 09/24/20 09/24/20 09/24/20 17:29 17:58 17:58 19:00 Temp 98.6 98.6 Pulse 68 Resp 18 B/P (MAP) 124/63 (83) Pulse Ox 98 98 98 98 O2 Delivery Room Air Room Air Room Air Room Air 09/24/20 09/24/20 09/24/20 09/24/20 20:00 21:33 22:03 23:00 Temp 98.9 98.9 Pulse 72 Resp 20 14 16 B/P (MAP) 120/60 (80) Pulse Ox 98 98 97 O2 Delivery Room Air Room Air Room Air Room Air 09/25/20 09/25/20 09/25/20 09/25/20 02:41 02:41 03:00 03:11 Temp 97.6 97.6 Pulse 79 Resp 24 18 16 B/P (MAP) 160/84 (109) Pulse Ox 97 97 98 98 O2 Delivery Room Air Room Air Room Air Room Air 09/25/20 09/25/20 09/25/20 09/25/20 03:11 07:00 08:54 08:55 Temp 98.0 98.0 Pulse 75 79 Resp 16 18 B/P (MAP) 170/91 (117) 160/84 Pulse Ox 98 98 98 O2 Delivery Room Air Room Air Room Air 09/25/20 09/25/20 09/25/20 09:25 09:41 10:11 Resp 18 Pulse Ox 98 98 98 O2 Delivery Room Air Room Air Room Air Intake and Output 09/24/20 09/24/2021 15:00 23:00 07:00 Intake Total 250 ml Output Total 200 ml 1000 ml Balance 250 ml -200 ml -1000 ml Justicifation of Admission Dx: Justifications for Admission: Justification of Admission Dx: Yes Comments: intractable pain MATTHEW JOHNSON MD Sep 25, 2020 11:02
[2020-09-25] MEDS: LORazepam 0.5 MG TABLET PO PRN (11:47)
[2020-09-25 15:00] VITALS: BP 160/83
[2020-09-25] MEDS: IV NORMAL SALINE 1000ML BAG 1,000 ML IV SCH (18:42)
[2020-09-25 19:00] VITALS: BP 136/86
--- NOTE | 2020-09-25 22:15 | CONS ---
DATE OF CONSULTATION: 09/25/2020 REFERRING PHYSICIAN: Hospitalist. REASON FOR CONSULTATION: Renal failure. HISTORY OF PRESENT ILLNESS: A 59-year-old female with history of hypertension. She is admitted with severe left knee pain. She has been unable to ambulate. Due to this, she has had worsening renal function, which she attributes to "being dehydrated." States this happened previously at the time of her "gallbladder surgery." She denies difficulty with urination, nephrolithiasis or gross hematuria. No history of diabetes mellitus. PAST MEDICAL HISTORY: Hypertension, colon cancer, degenerative arthritis, colon resection, morbid obesity. ALLERGIES: None. MEDICATIONS: Reviewed from medication list. She denies use of NSAIDs. FAMILY HISTORY: Noncontributory. SOCIAL HISTORY: The patient drinks alcohol socially, is a smoker. REVIEW OF SYSTEMS: No headaches, sinus problem, nasal drainage, epistaxis, change in vision or hearing, no difficulty swallowing. No fever, chills, cough, sputum production, hemoptysis. No chest pain, no abdominal pain, no nausea, vomiting, diarrhea. No seizures. She has a history of colon cancer. She has knee pain. PHYSICAL EXAMINATION: GENERAL APPEARANCE: The patient is awake, conversant, appropriate. HEENT: Clear. NECK: No increased JVD. No thyromegaly, masses or adenopathy. LUNGS: Clear. CARDIAC: Without S3 or rub. ABDOMEN: Soft, nontender, no bruits. She is obese. EXTREMITIES: Without edema. NEUROPSYCHIATRIC: Follows appropriately. Good attention to details. LABORATORY DATA: White count 9.9, hemoglobin 12.8, hematocrit 38.4. BUN on presentation 40, now 50, creatinine on presentation 1.6, now 1.5, sodium is 137, potassium 5, chloride 103, CO2 of 23. Urinalysis negative for proteinuria, urine specific gravity of 1.020. IMPRESSION: Acute renal failure, likely secondary to dehydration. Certainly may have an underlying chronic kidney disease on the basis of hypertensive nephrosclerosis as well. RECOMMENDATIONS: 1. IV fluid administration and trend labs. 2. Renal ultrasound reveals kidneys to be of normal size. No hydronephrosis, hydroureter. Bladder is unremarkable. BLUE DR: Veronica TID: [id number]
[2020-09-25 23:00] VITALS: BP 137/57
[2020-09-26 02:55] VITALS: BP 103/56
[2020-09-26] MEDS: ASPIRIN CHEWABLE 81 MG TABLET. PO SCH ×2 (06:05→08:49)
[2020-09-26] MEDS: PANTOPRAZOLE 40 MG TABLET.DR. PO SCH ×2 (06:05→08:49)
[2020-09-26] MEDS: methylPREDNISolone SOD SUCC PF 40 MG/ML VIAL. IV SCH ×3 (06:05→22:13)
[2020-09-26] MEDS: HYDROcodone/APAP 10/325 1 TAB TABLET PO PRN ×2 (06:22→16:33)
[2020-09-26 07:00] VITALS: BP 148/79
[2020-09-26] MEDS: IV NORMAL SALINE 1000ML BAG 1,000 ML IV SCH ×3 (07:20→22:14)
[2020-09-26 07:56] LABS: ALBUMIN 3.4 g/dL (3.4-5.0); CALCIUM 9.6 mg/dL (8.5-10.1); CREATININE 1.5 mg/dL (0.6-1.0); GFR 35.5; PHOSPHORUS 4.4 mg/dL (2.6-4.7); POTASSIUM 5.5 mmol/L (3.5-5.1)
[2020-09-26] MEDS: DOCUSATE SODIUM 100 MG CAPSULE. PO PRN (08:49)
[2020-09-26] MEDS: hydroCHLOROthiazide 12.5 MG CAPSULE PO SCH (08:49)
[2020-09-26] MEDS: CARVEDILOL 6.25 MG TABLET. PO SCH ×2 (08:50→16:11)
[2020-09-26] MEDS: LORazepam 0.5 MG TABLET PO PRN ×2 (09:22→16:32)
--- NOTE | 2020-09-26 09:54 | PDOC ---
DATE OF SERVICE DATE: 09/26/20 TIME: 09:47 SUBJECTIVE ROS Stable, No new complaints Denies SOB OBJECTIVE Vital Signs Vital Signs Date Time Temp Pulse Resp B/P (MAP) Pulse Ox O2 Delivery O2 Flow Rate FiO2 09/26/20 08:50 65 148/79 09/26/20 07:00 97.4 16 99 Room Air 97.4 I & 0 Intake and Output 09/26/20 07:00 Intake Total 345 ml Output Total 2700 ml Balance -2355 ml Intake Oral 345 ml Output Urine Total 2700 ml # Bowel Movements 1 PHYSICAL EXAM Physical Exam General NAD HEEN OM moist Neck Supple Lungs CTA , non labored CV RRR Abd soft Ext Neuro AXOX3, Grossly no focal deficit DIAGNOSIS/ASSESSMENT Assessment & Plan MAURICIO - Non Oliguric,baseline unknown, NSAID use per home meds , UA and renal US unremarkable Stable renal function, Supportive care, strict I/O, Avoid nephrotoxins, daily labs, Monitor ? CKD - patient reports Cr 1.7in 2018- had Gall stones as well. FU Labs few weeks later 1.0 . No Interval labs available to me . Per Pt Labs 3 weeks back in ER /Urgent care Cr 1.7 . HyperKalemia Mild, monitor, Kayexalate prn Gait instability per primary Intractable left knee pain /Severe left knee joint osteoarthritis hx Colon Adenocarcinoma Super Morbid obesity COMMENT/RELEVANT DATA Meds Current Medications Medications (Trade) Dose Ordered Sig/Christopher Start Time Stop Time Status Last Admin Dose Admin Acetaminophen (Tylenol) 650 mg PRN Q4HRS PRN 09/24/20 13:30 Acetaminophen/ Hydrocodone Bitart (Lortab 10/325) 1 tab PRN Q6HRS PRN 09/24/20 11:45 09/26/20 06:22 1 TAB Al Hydroxide/Mg Hydroxide (Mylanta Plus Xs) 30 ml PRN DAILY PRN 09/24/20 13:30 Albuterol Sulfate (Ventolin Neb Soln) 2.5 mg PRN Q4HRS PRN 09/24/20 13:30 Aspirin (Aspirin Chewable) 81 mg DAILY07 09/24/20 12:00 09/26/20 08:49 81 MG Carvedilol (Coreg) 6.25 mg BIDWMEALS 09/24/20 12:00 09/26/20 08:50 6.25 MG Clonidine HCl (Catapres) 0.1 mg PRN Q6HRS PRN 09/24/20 13:30 Diphenhydramine HCl (Benadryl) 25 mg PRN Q4HRS PRN 09/24/20 13:30 Docusate Sodium (Colace) 100 mg PRN BID PRN 09/24/20 13:30 09/26/20 08:49 100 MG Enoxaparin Sodium (Lovenox 60mg Syringe) 60 mg Q12HR 09/24/20 21:00 09/26/20 08:51 60 MG Fentanyl Citrate (Fentanyl 2ml Vial) 50 mcg PRN Q2HRS PRN 09/23/20 22:15 09/23/20 23:55 DC Guaifenesin (Robitussin) 200 mg PRN Q4HRS PRN 09/24/20 13:30 Hydrochlorothiazide (Microzide) 25 mg DAILY 09/24/20 12:00 09/26/20 08:49 25 MG Hydromorphone HCl (Dilaudid) 0.5 mg PRN Q4HRS PRN 09/24/20 00:00 09/25/20 23:38 0.5 MG Lisinopril (Prinivil) 5 mg DAILY 09/24/20 12:00 09/24/20 13:40 DC 09/24/20 12:53 5 MG Lorazepam (Ativan) 0.5 mg PRN Q4HRS PRN 09/24/20 13:30 09/26/20 09:22 0.5 MG Meloxicam (Mobic) 15 mg DAILY 09/24/20 12:00 09/25/20 17:52 DC 09/25/20 08:53 15 MG Methylprednisolone Sodium Succinate (SOLU-Medrol 40MG VIAL) 40 mg Q8HRS 09/24/20 08:30 09/26/20 06:05 40 MG Ondansetron HCl (Zofran) 4 mg PRN Q4HRS PRN 09/24/20 13:30 Pantoprazole Sodium (Protonix) 40 mg DAILYAC 09/24/20 12:00 09/26/20 08:49 40 MG Sodium Monofluorophosphate (Fleet Adult) 133 ml PRN DAILY PRN 09/24/20 13:30 Sodium Chloride 1,000 ml @ 75 mls/hr [id number] 09/25/20 18:00 09/26/20 09:23 75 MLS/HR Sodium Chloride (Normal Saline Flush) 3 ml QSHIFT PRN 09/24/20 13:30 Zolpidem Tartrate (Ambien) 5 mg PRN QHS PRN 09/24/20 13:30 09/24/20 21:05 5 MG Lab Laboratory Tests Test 09/26/20 07:00 Sodium Level 138 mmol/L (136-145) Potassium Level 5.5 mmol/L (3.5-5.1) Chloride Level 104 mmol/L (98-107) Carbon Dioxide Level 25 mmol/L (21-32) Anion Gap 9 (6-14) Blood Urea Nitrogen 61 mg/dL (7-20) Creatinine 1.5 mg/dL (0.6-1.0) Estimated GFR (Cockcroft-Gault) 35.5 Glucose Level 131 mg/dL (70-99) Calcium Level 9.6 mg/dL (8.5-10.1) Phosphorus Level 4.4 mg/dL (2.6-4.7) Albumin 3.4 g/dL (3.4-5.0) Results All relevant outside records, renal labs, imaging studies, telemetry/EKG's were reviewed. Justicifation of Admission Dx: Justifications for Admission: Justification of Admission Dx: Yes ASHLEY OLGUIN MD Sep 26, 2020 09:54
[2020-09-26 11:00] VITALS: BP 125/66
[2020-09-26 15:00] VITALS: BP 116/61
--- NOTE | 2020-09-26 15:03 | NUR ---
SS following for discharge planning. SS reviewed pt chart and discussed with pt RN. Pt is from home with spouse and is currently on room air. PT/OT recommended acute rehabilitation. Currently awaiting MRI of left knee. SS will continue to follow for discharge planning.
--- NOTE | 2020-09-26 15:21 | PDOC ---
Provider Note Date of Service: DATE: 09/26/20 TIME: 15:20 Provider Note Patient seen and evaluated today. She is up in a chair. She states her knee is feeling better. She still has not gotten her MRI and it has been ordered 2 days ago. Vital signs are stable Left knee reveals no erythema. She has comfortable range of motion from 0 through 60. Neurocirculatory status is intact. Diagnosis: Intractable left knee pain Morbid obesity At this point she can continue to work with physical therapy however I would like to obtain the MRI to make sure that we are not overlooking a hairline fracture that may limit her weightbearing. I discussed with her at length today that limited movement puts her at risk for pneumonia or DVT. We will currently await MRI. Justifications for Admission General Conditions Other justification for admit: gait instability Other Justification CARTER NORWOOD DO Sep 26, 2020 15:21
--- NOTE | 2020-09-26 15:58 | PDOC ---
[facility] PROGRESS NOTE Date of Service DOS: DATE: 09/26/20 TIME: 15:48 Chief Complaint Chief Complaint VTE Prophylaxis Ordered VTE Prophylaxis Devices: Contraindicated VTE Pharmacological Prophylaxi: Yes Assessment/Plan Assessment/Plan IMPRESSION: Gait instability, high fall risk Intractable left knee pain Severe left knee joint osteoarthritis hx colon ADENOCARCINOMA Super Morbid obesity MAURICIO HTN plan admit ortho consult PT/OT FALL PRECAUTIONS PAIN CONTROL dvt prophylaxis Avoid nephrotoxins, hold babs trend renal fx Nephrology consult D/W RN Justifications for Admission Other Justification Discharge Recommendations * Acute Rehab facility Discharge Recommendation - DME * Rolling Walker needed * in order to complete ADLs * and ambulation safely History of Present Illness History of Present Illness 59 YR OLD FEMALE seen in ER with severe left kneev pain, unable to safely ambulate, cr elevated, is a high fall risk, ortho and nephrology consulted pain has been more severe x 3 weeks, very severe x 2 days, heard knee " pop" 2 days ago, now unable to raise knee, pain worse with any movement, MRI KNEE PENDING ortho consult PT/OT FALL PRECAUTIONS PAIN CONTROL dvt prophylaxis Avoid nephrotoxins, hold babs trend renal fx Nephrology consult avoid nephrotoxins 09/26/20: Patient afebrile. She reports left knee pain 6/10, worse with movement. MRI was ordered over the weekend but not performed. Will reorder MRI, per orthopedic surgery. Kidney function slightly improved but stable at creatinine 1.5. Vitals/I&O Vitals/I&O: Vital Signs Date Time Temp Pulse Resp B/P (MAP) Pulse Ox O2 Delivery O2 Flow Rate FiO2 09/26/20 11:00 97.4 69 16 125/66 (85) 100 Room Air 97.4 I & O 09/25/20 09/25/20 09/26/20 15:00 23:00 07:00 Intake Total 225 ml 120 ml Output Total 1200 ml 1000 ml 500 ml Balance -975 ml -1000 ml -380 ml Physical Exam General: Alert, Oriented X3, Cooperative, No acute distress Heart: No murmurs Abdomen: Normal bowel sounds, Soft, No tenderness, No hepatosplenomegaly Extremities: No clubbing, No cyanosis Skin: No rashes Labs Labs: Laboratory Tests Test 09/26/20 07:00 Sodium Level 138 mmol/L (136-145) Potassium Level 5.5 mmol/L (3.5-5.1) Chloride Level 104 mmol/L (98-107) Carbon Dioxide Level 25 mmol/L (21-32) Anion Gap 9 (6-14) Blood Urea Nitrogen 61 mg/dL (7-20) Creatinine 1.5 mg/dL (0.6-1.0) Estimated GFR (Cockcroft-Gault) 35.5 Glucose Level 131 mg/dL (70-99) Calcium Level 9.6 mg/dL (8.5-10.1) Phosphorus Level 4.4 mg/dL (2.6-4.7) Albumin 3.4 g/dL (3.4-5.0) Assessment and Plan Assessmemt and Plan Problems Medical Problems: (1) Intractable pain Status: Acute (2) Knee pain, left Status: Acute Comment Review of Relevant I have reviewed the following items dilan (where applicable) has been applied. Medications: Current Medications Medications (Trade) Dose Ordered Sig/Christopher Route PRN Reason Start Time Stop Time Status Last Admin Dose Admin Sodium Chloride 1,000 ml @ 75 mls/hr [id number] IV 09/25/20 18:00 09/26/20 09:23 Justifications for Admission General Conditions Other justification for admit: gait instability Other Justification SUDHIR MCKEON MD Sep 26, 2020 15:58
--- NOTE | 2020-09-26 17:33 | NUR ---
pt states that she is upset regarding the MRI being ordered for the 3rd time and still not being done. Dr. Williamson ordered 09/24 and 09/26. 6.7 being stat to rule out possible hairline fracture. Pt spoke with Ryan Maurice who said to reorder the MRI. MRI was canceled 3 times and the pt does bnot want to do a CT without explanation as to why. Pt wwas to have MRI through [facility] today however injured her knee and came to the hospital due to not being able to move leg and has been waiting since 09/24/20 to have MRI. notified pt wants to speak to someone who can explain this to her before proceeding.
[2020-09-26 19:38] VITALS: BP 157/76
[2020-09-26] MEDS: HYDROmorphone 2 MG/ML VIAL IVP PRN (22:15)
[2020-09-26 23:13] VITALS: BP 147/81
[2020-09-27 03:51] VITALS: BP 186/78
[2020-09-27] MEDS: HYDROmorphone 2 MG/ML VIAL IVP PRN ×2 (04:55→12:11)
[2020-09-27] MEDS: methylPREDNISolone SOD SUCC PF 40 MG/ML VIAL. IV SCH ×3 (05:45→21:04)
[2020-09-27 07:00] VITALS: BP 139/70
[2020-09-27 07:49] LABS: CALCIUM 9.5 mg/dL (8.5-10.1); CREATININE 1.4 mg/dL (0.6-1.0); GFR 38.5; POTASSIUM 5.5 mmol/L (3.5-5.1)
[2020-09-27] MEDS: hydroCHLOROthiazide 12.5 MG CAPSULE PO SCH (08:31)
[2020-09-27] MEDS: CARVEDILOL 6.25 MG TABLET. PO SCH ×2 (08:32→17:12)
[2020-09-27] MEDS: ASPIRIN CHEWABLE 81 MG TABLET. PO SCH (08:32)
[2020-09-27] MEDS: PANTOPRAZOLE 40 MG TABLET.DR. PO SCH (08:32)
--- NOTE | 2020-09-27 09:29 | PDOC ---
DATE OF SERVICE DATE: 09/27/20 TIME: 09:21 SUBJECTIVE ROS Stable, No new complaints Denies SOB OBJECTIVE Vital Signs Vital Signs Date Time Temp Pulse Resp B/P (MAP) Pulse Ox O2 Delivery O2 Flow Rate FiO2 09/27/20 08:32 66 186/78 09/27/20 07:00 97.5 18 99 Room Air 97.5 I & 0 Intake and Output 09/27/20 07:00 Intake Total 2410 ml Output Total 3200 ml Balance -790 ml Intake Oral 1660 ml Blood Product IV Normal Saline Flush 750 ml Output Urine Total 3200 ml # Voids 3 # Bowel Movements 2 PHYSICAL EXAM Physical Exam General NAD HEEN OM moist Neck Supple Lungs CTA , non labored CV RRR Abd soft Ext Neuro AXOX3, Grossly no focal deficit DIAGNOSIS/ASSESSMENT Assessment & Plan MAURICIO - Non Oliguric,baseline unknown, NSAID use per home meds , UA and renal US unremarkable Stable renal function, Supportive care, strict I/O, Avoid nephrotoxins, daily labs, Monitor ? CKD - patient reports Cr 1.7in 2017- had Gall stones as well. FU Labs few weeks later 1.0 . No Interval labs available to me . Per Pt Labs 3 weeks back in ER /Urgent care Cr 1.7 . HyperKalemia Mild, monitor, Kayexalate prn. Low K diet Gait instability per primary Intractable left knee pain /Severe left knee joint osteoarthritis hx Colon Adenocarcinoma Super Morbid obesity COMMENT/RELEVANT DATA Meds Current Medications Medications (Trade) Dose Ordered Sig/Christopher Start Time Stop Time Status Last Admin Dose Admin Acetaminophen (Tylenol) 650 mg PRN Q4HRS PRN 09/24/20 13:30 Acetaminophen/ Hydrocodone Bitart (Lortab 10/325) 1 tab PRN Q6HRS PRN 09/24/20 11:45 09/26/20 16:33 1 TAB Al Hydroxide/Mg Hydroxide (Mylanta Plus Xs) 30 ml PRN DAILY PRN 09/24/20 13:30 Albuterol Sulfate (Ventolin Neb Soln) 2.5 mg PRN Q4HRS PRN 09/24/20 13:30 Aspirin (Aspirin Chewable) 81 mg DAILY07 09/24/20 12:00 09/27/20 08:32 81 MG Carvedilol (Coreg) 6.25 mg BIDWMEALS 09/24/20 12:00 09/27/20 08:32 6.25 MG Clonidine HCl (Catapres) 0.1 mg PRN Q6HRS PRN 09/24/20 13:30 09/27/20 03:31 0.1 MG Diphenhydramine HCl (Benadryl) 25 mg PRN Q4HRS PRN 09/24/20 13:30 Docusate Sodium (Colace) 100 mg PRN BID PRN 09/24/20 13:30 09/26/20 08:49 100 MG Enoxaparin Sodium (Lovenox 60mg Syringe) 60 mg Q12HR 09/24/20 21:00 09/27/20 08:31 60 MG Fentanyl Citrate (Fentanyl 2ml Vial) 50 mcg PRN Q2HRS PRN 09/23/20 22:15 09/23/20 23:55 DC Guaifenesin (Robitussin) 200 mg PRN Q4HRS PRN 09/24/20 13:30 Hydrochlorothiazide (Microzide) 25 mg DAILY 09/24/20 12:00 09/27/20 08:31 25 MG Hydromorphone HCl (Dilaudid) 0.5 mg PRN Q4HRS PRN 09/24/20 00:00 09/27/20 04:55 0.5 MG Lisinopril (Prinivil) 5 mg DAILY 09/24/20 12:00 09/24/20 13:40 DC 09/24/20 12:53 5 MG Lorazepam (Ativan) 0.5 mg PRN Q4HRS PRN 09/24/20 13:30 09/26/20 16:32 0.5 MG Meloxicam (Mobic) 15 mg DAILY 09/24/20 12:00 09/25/20 17:52 DC 09/25/20 08:53 15 MG Methylprednisolone Sodium Succinate (SOLU-Medrol 40MG VIAL) 40 mg Q8HRS 09/24/20 08:30 09/27/20 05:45 40 MG Ondansetron HCl (Zofran) 4 mg PRN Q4HRS PRN 09/24/20 13:30 Pantoprazole Sodium (Protonix) 40 mg DAILYAC 09/24/20 12:00 09/27/20 08:32 40 MG Sodium Monofluorophosphate (Fleet Adult) 133 ml PRN DAILY PRN 09/24/20 13:30 Sodium Chloride 1,000 ml @ 75 mls/hr [id number] 09/25/20 18:00 09/26/20 22:14 75 MLS/HR Sodium Chloride (Normal Saline Flush) 3 ml QSHIFT PRN 09/24/20 13:30 Zolpidem Tartrate (Ambien) 5 mg PRN QHS PRN 09/24/20 13:30 09/24/20 21:05 5 MG Lab Laboratory Tests Test 09/27/20 06:25 Sodium Level 143 mmol/L (136-145) Potassium Level 5.5 mmol/L (3.5-5.1) Chloride Level 108 mmol/L (98-107) Carbon Dioxide Level 26 mmol/L (21-32) Anion Gap 9 (6-14) Blood Urea Nitrogen 54 mg/dL (7-20) Creatinine 1.4 mg/dL (0.6-1.0) Estimated GFR (Cockcroft-Gault) 38.5 Glucose Level 137 mg/dL (70-99) Calcium Level 9.5 mg/dL (8.5-10.1) Results All relevant outside records, renal labs, imaging studies, telemetry/EKG's were reviewed. Justicifation of Admission Dx: Justifications for Admission: Justification of Admission Dx: Yes ASHLEY OLGUIN MD Sep 27, 2020 09:29
[2020-09-27] MEDS: HYDROcodone/APAP 10/325 1 TAB TABLET PO PRN ×2 (10:59→21:04)
[2020-09-27 11:00] VITALS: BP 133/69
--- NOTE | 2020-09-27 11:40 | NUR ---
SS following up with discharge planning. SS reviewed pt chart and discussed with pt RN. Pt is currently on room air. PT/OT recommended acute rehabilitation. SS met with pt to discuss discharge planning and acute rehabilitation. Pt reported frustration because MRI was ordered and recommended by ortho physician and primary physician. Radiology has cancelled MRI and has not provided pt explanation as to why. Pt reported that she is not opposed to CT is a good explanation can be provided to her as to why the MRI is not appropriate. Per primary physician MRI is appropriate. Pt reported that she would like an explanation provided today. RN pulp mill supervisor discussing with administration. Dr. Teri reyna. Pt reporting that she is not going to move forward with discharge planning until someone comes to speak with her and provides her with answers. SS will continue to follow for discharge planning.
--- NOTE | 2020-09-27 13:32 | PDOC ---
[employer] PROGRESS NOTE Date of Service DOS: DATE: 09/27/20 TIME: 13:30 Chief Complaint Chief Complaint VTE Prophylaxis Ordered VTE Prophylaxis Devices: Contraindicated VTE Pharmacological Prophylaxi: Yes Assessment/Plan Assessment/Plan IMPRESSION: Gait instability, high fall risk Intractable left knee pain Severe left knee joint osteoarthritis hx colon ADENOCARCINOMA Super Morbid obesity MAURICIO due to vasomotor nephropathy HTN plan admit ortho consult PT/OT FALL PRECAUTIONS PAIN CONTROL dvt prophylaxis Avoid nephrotoxins, hold babs trend renal fx Nephrology consult D/W RN Justifications for Admission Other Justification Discharge Recommendations * Acute Rehab facility Discharge Recommendation - DME * Rolling Walker needed * in order to complete ADLs * and ambulation safely History of Present Illness History of Present Illness 59 YR OLD FEMALE seen in ER with severe left kneev pain, unable to safely ambulate, cr elevated, is a high fall risk, ortho and nephrology consulted pain has been more severe x 3 weeks, very severe x 2 days, heard knee " pop" 2 days ago, now unable to raise knee, pain worse with any movement, MRI KNEE PENDING ortho consult PT/OT FALL PRECAUTIONS PAIN CONTROL dvt prophylaxis Avoid nephrotoxins, hold babs trend renal fx Nephrology consult avoid nephrotoxins 09/26/20: Patient afebrile. She reports left knee pain 6/10, worse with movement. MRI was ordered over the weekend but not performed. Will reorder MRI, per orthopedic surgery. Kidney function slightly improved but stable at creatinine 1.5. 09/27/2020: Afebrile, no acute events overnight. Patient's MRI canceled again yesterday afternoon. After discussion with administration and radiology, patient will receive MRI of her left knee today to evaluate for hairline fracture. Further recommendations pending MRI results. Vitals/I&O Vitals/I&O: Vital Signs Date Time Temp Pulse Resp B/P (MAP) Pulse Ox O2 Delivery O2 Flow Rate FiO2 09/27/20 12:11 100 Room Air 09/27/20 11:25 20 09/27/20 11:00 97.5 62 133/69 (90) 97.5 I & O0 09/26/20 09/26/20 09/27/20 15:00 23:00 07:00 Intake Total 360 ml 2050 ml 0 ml Output Total 2700 ml 500 ml Balance 360 ml -650 ml -500 ml Physical Exam General: Alert, Oriented X3, Cooperative, No acute distress Heart: No murmurs Abdomen: Normal bowel sounds, Soft, No tenderness, No hepatosplenomegaly Extremities: No clubbing, No cyanosis Skin: No rashes Labs Labs: Laboratory Tests Test 09/27/20 06:25 Sodium Level 143 mmol/L (136-145) Potassium Level 5.5 mmol/L (3.5-5.1) Chloride Level 108 mmol/L (98-107) Carbon Dioxide Level 26 mmol/L (21-32) Anion Gap 9 (6-14) Blood Urea Nitrogen 54 mg/dL (7-20) Creatinine 1.4 mg/dL (0.6-1.0) Estimated GFR (Cockcroft-Gault) 38.5 Glucose Level 137 mg/dL (70-99) Calcium Level 9.5 mg/dL (8.5-10.1) Assessment and Plan Assessmemt and Plan Problems Medical Problems: (1) Intractable pain Status: Acute (2) Knee pain, left Status: Acute Comment Review of Relevant I have reviewed the following items dilan (where applicable) has been applied. Justifications for Admission General Conditions Other justification for admit: gait instability Other Justification SUDHIR MCKEON MD Sep 27, 2020 13:32
--- NOTE | 2020-09-27 14:11 | RAD ---
Examination: MRI of the left knee without contrast HISTORY: History of left knee pain COMPARISON: None TECHNIQUE: Multiplanar, multisequence MR imaging of the left knee was performed without contrast. FINDINGS: Severe joint space loss identified in the medial, lateral, patellofemoral compartments. Multiple subc hondral cystic changes identified in the medial, lateral, patellofemoral compartments likely degenera tive changes. Moderate to large osteophyte formation identified in the medial, lateral, patellofemora l compartments. Small knee joint effusion is identified. The anterior cruciate ligament, posterior cruciate ligament appear intact. However evaluation of the menisci is very limited due to motion and due to patient body habitus. There is probably attenuated a ppearance of the body of the medial, lateral meniscus likely old degenerative tears. There is nondisplaced fracture of the diaphysis of the proximal tibia just distal to the infrapatella r tendon attachment. Small popliteal cyst. There is moderate increased T2 signal identified in the soft tissue about the knee joint likely secon yandel to injury. IMPRESSION: 1. Nondisplaced fracture of the diaphysis of the proximal tibia just distal to the infrapatellar ten don attachment. 2. Attenuated appearance of the body of the medial, lateral meniscus likely degenerative tears. 3. Severe tricompartmental degenerative changes. 4. Small knee joint effusion with small popliteal cyst. 5. Moderate increased T2 signal identified in the soft tissue about the knee joint likely secondary to injury. Electronically signed by: Merritt Gabriel MD (09/27/2020 2:08 PM) [id number]
[2020-09-27 15:00] VITALS: BP 145/68
[2020-09-27 19:00] VITALS: BP 152/82
[2020-09-27] MEDS: DOCUSATE SODIUM 100 MG CAPSULE. PO PRN (21:03)
[2020-09-27] MEDS: ZOLPIDEM 5 MG TABLET. PO PRN (21:04)
[2020-09-27 22:49] VITALS: BP 113/48
[2020-09-28 03:00] VITALS: BP 147/73
[2020-09-28] MEDS: methylPREDNISolone SOD SUCC PF 40 MG/ML VIAL. IV SCH ×3 (06:34→20:44)
[2020-09-28 07:00] VITALS: BP 141/81
[2020-09-28] MEDS: DOCUSATE SODIUM 100 MG CAPSULE. PO PRN ×2 (08:08→20:43)
[2020-09-28] MEDS: HYDROcodone/APAP 10/325 1 TAB TABLET PO PRN ×2 (08:10→20:43)
[2020-09-28] MEDS: CARVEDILOL 6.25 MG TABLET. PO SCH ×2 (08:11→17:41)
[2020-09-28] MEDS: hydroCHLOROthiazide 12.5 MG CAPSULE PO SCH (08:11)
[2020-09-28 08:17] LABS: CALCIUM 9.2 mg/dL (8.5-10.1); CREATININE 1.5 mg/dL (0.6-1.0); GFR 35.5; POTASSIUM 4.9 mmol/L (3.5-5.1)
--- NOTE | 2020-09-28 10:05 | PDOC ---
DATE OF SERVICE DATE: 09/28/20 TIME: 10:05 SUBJECTIVE ROS Stable, No new complaints Denies SOB OBJECTIVE Vital Signs Vital Signs Date Time Temp Pulse Resp B/P (MAP) Pulse Ox O2 Delivery O2 Flow Rate FiO2 09/28/20 08:11 61 141/81 09/28/20 08:10 19 99 Room Air 09/28/20 07:00 98.1 98.1 I & 0 Intake and Output 09/28/20 06:59 Intake Total 1260 ml Output Total 1800 ml Balance -540 ml Intake Oral 1260 ml Output Urine Total 1800 ml PHYSICAL EXAM Physical Exam General NAD HEEN OM moist Neck Supple Lungs CTA , non labored CV RRR Abd soft Ext Neuro AXOX3, Grossly no focal deficit DIAGNOSIS/ASSESSMENT Assessment & Plan MAURICIO - Non Oliguric,NSAID use per home meds , UA and renal US unremarkable Stable renal function, Supportive care, strict I/O, Avoid nephrotoxins, daily labs, Monitor ? CKD - patient reports Cr 1.7in 2018- had Gall stones as well. FU Labs few week s later 1.0 . Per Pt Labs 3 weeks back in ER /Urgent care Cr 1.7 .Pt was able to get to her portal and reports her Cr was 1.4 approx 6 months back HyperKalemia - Resolved, continue Low K diet Gait instability per primary Intractable left knee pain /Severe left knee joint osteoarthritis- scheduled for MRI hx Colon Adenocarcinoma Super Morbid obesity COMMENT/RELEVANT DATA Meds Current Medications Medications (Trade) Dose Ordered Sig/Christopher Start Time Stop Time Status Last Admin Dose Admin Acetaminophen (Tylenol) 650 mg PRN Q4HRS PRN 09/24/20 13:30 Acetaminophen/ Hydrocodone Bitart (Lortab 10/325) 1 tab PRN Q6HRS PRN 09/24/20 11:45 09/28/20 08:10 1 TAB Acetaminophen/ Hydrocodone Bitart (Lortab 7.5/325) 1 tab PRN Q6HRS PRN 09/27/20 15:30 Al Hydroxide/Mg Hydroxide (Mylanta Plus Xs) 30 ml PRN DAILY PRN 09/24/20 13:30 Albuterol Sulfate (Ventolin Neb Soln) 2.5 mg PRN Q4HRS PRN 09/24/20 13:30 Aspirin (Aspirin Chewable) 81 mg DAILY07 09/24/20 12:00 09/27/20 08:32 81 MG Carvedilol (Coreg) 6.25 mg BIDWMEALS 09/24/20 12:00 09/28/20 08:11 6.25 MG Clonidine HCl (Catapres) 0.1 mg PRN Q6HRS PRN 09/24/20 13:30 09/27/20 03:31 0.1 MG Diphenhydramine HCl (Benadryl) 25 mg PRN Q4HRS PRN 09/24/20 13:30 Docusate Sodium (Colace) 100 mg PRN BID PRN 09/24/20 13:30 09/28/20 08:08 100 MG Enoxaparin Sodium (Lovenox 60mg Syringe) 60 mg Q12HR 09/24/20 21:00 09/28/20 08:09 60 MG Fentanyl Citrate (Fentanyl 2ml Vial) 50 mcg PRN Q2HRS PRN 09/23/20 22:15 09/23/20 23:55 DC Guaifenesin (Robitussin) 200 mg PRN Q4HRS PRN 09/24/20 13:30 Hydrochlorothiazide (Microzide) 25 mg DAILY 09/24/20 12:00 09/28/20 08:11 25 MG Hydromorphone HCl (Dilaudid) 0.5 mg PRN Q4HRS PRN 09/24/20 00:00 09/27/20 12:11 0.5 MG Lisinopril (Prinivil) 5 mg DAILY 09/24/20 12:00 09/24/20 13:40 DC 09/24/20 12:53 5 MG Lorazepam (Ativan) 0.5 mg PRN Q4HRS PRN 09/24/20 13:30 09/26/20 16:32 0.5 MG Meloxicam (Mobic) 15 mg DAILY 09/24/20 12:00 09/25/20 17:52 DC 09/25/20 08:53 15 MG Methylprednisolone Sodium Succinate (SOLU-Medrol 40MG VIAL) 40 mg Q8HRS 09/24/20 08:30 09/28/20 06:34 40 MG Ondansetron HCl (Zofran) 4 mg PRN Q4HRS PRN 09/24/20 13:30 Pantoprazole Sodium (Protonix) 40 mg DAILYAC 09/24/20 12:00 09/27/20 08:32 40 MG Sodium Monofluorophosphate (Fleet Adult) 133 ml PRN DAILY PRN 09/24/20 13:30 Sodium Chloride 1,000 ml @ 75 mls/hr [id number] 09/25/20 18:00 09/27/20 12:15 DC 09/26/20 22:14 75 MLS/HR Sodium Chloride (Normal Saline Flush) 3 ml QSHIFT PRN 09/24/20 13:30 Zolpidem Tartrate (Ambien) 5 mg PRN QHS PRN 09/24/20 13:30 09/27/20 21:04 5 MG Lab Laboratory Tests Test 09/28/20 06:35 Sodium Level 139 mmol/L (136-145) Potassium Level 4.9 mmol/L (3.5-5.1) Chloride Level 105 mmol/L (98-107) Carbon Dioxide Level 24 mmol/L (21-32) Anion Gap 10 (6-14) Blood Urea Nitrogen 55 mg/dL (7-20) Creatinine 1.5 mg/dL (0.6-1.0) Estimated GFR (Cockcroft-Gault) 35.5 Glucose Level 134 mg/dL (70-99) Calcium Level 9.2 mg/dL (8.5-10.1) Results All relevant outside records, renal labs, imaging studies, telemetry/EKG's were reviewed. Justicifation of Admission Dx: Justifications for Admission: Justification of Admission Dx: Yes ASHLEY OLGUIN MD Sep 28, 2020 10:05
--- NOTE | 2020-09-28 10:49 | NUR ---
SS following up with discharge planning. SS reviewed pt chart and discussed with pt RN. Pt is currently on room air. Pt had MRI yesterday. Currently awaiting ortho to follow up and provide recommendations. PT/OT ordered and currently awaiting ortho recommendations as well. Pt wanting to return to home. SS will continue to follow for discharge planning.
--- NOTE | 2020-09-28 10:54 | PDOC ---
[employer] PROGRESS NOTE Date of Service DOS: DATE: 09/28/20 TIME: 10:50 Chief Complaint Chief Complaint VTE Prophylaxis Ordered VTE Prophylaxis Devices: Contraindicated VTE Pharmacological Prophylaxi: Yes Assessment/Plan Assessment/Plan IMPRESSION: Gait instability, high fall risk Intractable left knee pain Severe left knee joint osteoarthritis hx colon ADENOCARCINOMA Super Morbid obesity MAURICIO due to vasomotor nephropathy HTN plan admit ortho consult PT/OT FALL PRECAUTIONS PAIN CONTROL dvt prophylaxis Avoid nephrotoxins, hold babs trend renal fx Nephrology consult D/W RN Justifications for Admission Other Justification Discharge Recommendations * Acute Rehab facility Discharge Recommendation - DME * Rolling Walker needed * in order to complete ADLs * and ambulation safely History of Present Illness History of Present Illness 59 YR OLD FEMALE seen in ER with severe left kneev pain, unable to safely ambulate, cr elevated, is a high fall risk, ortho and nephrology consulted pain has been more severe x 3 weeks, very severe x 2 days, heard knee " pop" 2 days ago, now unable to raise knee, pain worse with any movement, MRI KNEE PENDING ortho consult PT/OT FALL PRECAUTIONS PAIN CONTROL dvt prophylaxis Avoid nephrotoxins, hold babs trend renal fx Nephrology consult avoid nephrotoxins 09/26/20: Patient afebrile. She reports left knee pain 6/10, worse with movement. MRI was ordered over the weekend but not performed. Will reorder MRI, per orthopedic surgery. Kidney function slightly improved but stable at creatinine 1.5. 09/27/2020: Afebrile, no acute events overnight. Patient's MRI canceled again yesterday afternoon. After discussion with administration and radiology, patient will receive MRI of her left knee today to evaluate for hairline fracture. Further recommendations pending MRI results. 09/28/2020: Patient without significant plaints today. She was able to transition to bedside without significant discomfort. MRI yesterday of left lower extre mity showed nondisplaced fracture of the diaphysis of the proximal tibia and likely degenerative degenerative tears of the medial and lateral meniscus. Did not work with occupational therapy this morning as she was awaiting recommendations from orthopedic surgery. Still is agreeable to acute rehab at this time. Vitals/I&O Vitals/I&O: Vital Signs Date Time Temp Pulse Resp B/P (MAP) Pulse Ox O2 Delivery O2 Flow Rate FiO2 6/9/21 08:11 61 141/81 09/28/20 08:10 19 99 Room Air 09/28/20 07:00 98.1 98.1 I & O 09/27/20 09/27/20 09/28/20 15:00 23:00 07:00 Intake Total 570 ml 210 ml 480 ml Output Total 400 ml 1400 ml Balance 170 ml 210 ml -920 ml Physical Exam General: Alert, Oriented X3, Cooperative, No acute distress Heart: No murmurs Abdomen: Normal bowel sounds, Soft, No tenderness, No hepatosplenomegaly Extremities: No clubbing, No cyanosis Skin: No rashes Labs Labs: Laboratory Tests Test 09/28/20 06:35 Sodium Level 139 mmol/L (136-145) Potassium Level 4.9 mmol/L (3.5-5.1) Chloride Level 105 mmol/L (98-107) Carbon Dioxide Level 24 mmol/L (21-32) Anion Gap 10 (6-14) Blood Urea Nitrogen 55 mg/dL (7-20) Creatinine 1.5 mg/dL (0.6-1.0) Estimated GFR (Cockcroft-Gault) 35.5 Glucose Level 134 mg/dL (70-99) Calcium Level 9.2 mg/dL (8.5-10.1) Assessment and Plan Assessmemt and Plan Problems Medical Problems: (1) Intractable pain Status: Acute (2) Knee pain, left Status: Acute Comment Review of Relevant I have reviewed the following items dilan (where applicable) has been applied. Justifications for Admission General Conditions Other justification for admit: gait instability Other Justification SUDHIR MCKEON MD Sep 28, 2020 10:54
[2020-09-28 11:00] VITALS: BP 149/82
[2020-09-28] MEDS ORDERED: ASPIRIN CHEWABLE 81 MG TABLET. PO ONE (12:00)
[2020-09-28] MEDS ORDERED: PANTOPRAZOLE 40 MG TABLET.DR. PO ONE (12:00)
[2020-09-28] MEDS: HYDROmorphone 2 MG/ML VIAL IVP PRN (12:25)
[2020-09-28 15:00] VITALS: BP 138/67
--- NOTE | 2020-09-28 18:32 | PDOC ---
Provider Note Date of Service: DATE: 09/28/20 TIME: 18:30 Provider Note Patient seen and evaluated in room 205. We discussed at length her MRI report which reveals a proximal tibial shaft stress fracture as well as severe arthritis. Vital signs are stable patient is afebrile Left knee and lower leg examination reveals tenderness palpation globally about the knee and proximal tibia. No visual deformity. Diagnosis: Left proximal tibia stress fracture Severe left knee osteoarthritis Morbid obesity At this point we will make her nonweightbearing on her left lower extremity. We have ordered a knee immobilizer to be fitted by [facility]. We will have physical therapy work with her tomorrow to see what she is able to do using only one leg. I anticipate need for rehab given her injury and comorbidities. She will need x-rays in about 2 weeks Justifications for Admission General Conditions Other justification for admit: gait instability Other Justification CARTER NORWOOD DO Sep 28, 2020 18:32
[2020-09-28 19:00] VITALS: BP 129/71
--- NOTE | 2020-09-28 19:05 | NUR ---
Nurse's note: Spoke to Dr. Williamson at 1830, patient to be non weight bearing on the left lower extremity with immobilizer. He also discussed with the patient the plan to discharge in a rehab facility.
[2020-09-28] MEDS: ZOLPIDEM 5 MG TABLET. PO PRN (20:44)
[2020-09-28 23:00] VITALS: BP 137/78
[2020-09-29] VITALS (8 sets, daily range): BP systolic 126–178; BP diastolic 59–83
[2020-09-29] MEDS: methylPREDNISolone SOD SUCC PF 40 MG/ML VIAL. IV SCH ×3 (05:43→21:11)
[2020-09-29] MEDS: HYDROcodone/APAP 10/325 1 TAB TABLET PO PRN (05:46)
[2020-09-29] MEDS: ASPIRIN CHEWABLE 81 MG TABLET. PO SCH (07:00)
[2020-09-29] MEDS ORDERED: IV NORMAL SALINE 1000ML BAG 1,000 ML IV ONE (07:00)
--- NOTE | 2020-09-29 07:00 | NUR ---
Pt. while using commode, vomitted bloody emesis and had a large bm that appeared bloody. Samples sent to lab. Pt felt like she was going to pass out. BP dropped from 127 systolic to 93. Tele monitor applied. Fluid bolus started. CBC added onto morning labs. Pt now feeling better after getting back to bed. Report given to [facility]. Dr. Cody reyna.
[2020-09-29 07:40] LABS: CALCIUM 8.4 mg/dL (8.5-10.1); CREATININE 1.4 mg/dL (0.6-1.0); GFR 38.5
[2020-09-29 07:43] LABS: POTASSIUM 5.2 mmol/L (3.5-5.1)
[2020-09-29 07:48] LABS: FECAL OB PT POSITIVE (NEG); GASTRIC OB PAT POSITIVE (NEG)
[2020-09-29] MEDS: CARVEDILOL 6.25 MG TABLET. PO SCH ×2 (08:00→18:00)
[2020-09-29 08:08] LABS: BASO % 0 % (0-3); EOS % 0 % (0-3); HEMATOCRIT 30.5 % (36.0-47.0); HEMOGLOBIN 10.1 g/dL (12.0-15.5); LYMPH # 1.2 x10^3/uL (1.0-4.8); LYMPH % 8 % (24-48); MEAN CORPUSCULAR HEMOGLOBIN 31 pg (25-35); MEAN CORPUSCULAR HGB CONC 33 g/dL (31-37); MEAN CORPUSCULAR VOLUME 94 fL (79-100); MONO # 1.3 x10^3/uL (0.0-1.1); MONO % 9 % (0-9); NEUT % 83 % (31-73); PLATELET COUNT 358 x10^3/uL (140-400); RED BLOOD COUNT 3.26 x10^6/uL (3.50-5.40); RED CELL DISTRIBUTION WIDTH 14.1 % (11.5-14.5); WHITE BLOOD COUNT 14.5 x10^3/uL (4.0-11.0)
[2020-09-29] MEDS: hydroCHLOROthiazide 12.5 MG CAPSULE PO SCH (09:00)
--- NOTE | 2020-09-29 09:37 | PDOC2 ---
GI CONSULT Date of Service: DATE: 09/29/20 TIME: 09:35 Reason For Consult: large bloody stool, hematemesis HPI: HPI: Pleasant 59 y/o female admitted through ER on 09/23/20 w/ left leg pain that began on 09/09. On treatment for left tibial stress fracture and OA, also MAURICIO. Has been dealing with constipation for awhile - attributes to limited mobility and purposefully not eating and drinking as much at home as a result; however, has had a stool daily x 3 days here w/ Colace and eating normally here. [place] a little nauseated briefly yesterday morning. [place] funny overnight, had some back pain. Earlier this morning had urgent stool - first hard, then loose. She didn't see it but nurse reports (per shift production associate) "normal stool and then all red blood." [place] like she was going to faint (quickly resolved), some drop in BP briefly (now resolved). Drank half a cup of water and then vomited red blood. Never had abdominal pain. Feels better now. H/o GERD controlled w/ omeprazole QD at home (and pantoprazole here). No dysphagia, diarrhea, melena, or weight loss. No previous EGD. Recalls being told she had a hiatal hernia but no further workup was suggested. Has occasional epigastric discomfort improved w/ "stretching." Colonoscopy in 2018: sigmoid colon mass (adenocarcinoma) and multiple polyps in left colon (TVAs, TAs). S/p colon resection @ [facility] - says no chemo/rad needed. Colonoscopy 10/[address] Argueta: intact sigmoid anastomosis, non-bleeding internal hemorrhoids. S/p cholecystectomy for "one stone the size of a small avocado." Denies liver, pancreas, or PUD history. On Meloxicam QD and ASA 81mg QD at home. On IV steroids, Lovenox, and ASA here. Had COVID vaccines. PMH: PMH: HTN, cardiomyopathy ("that was related to my gallbladder"), OA, colon cancer colon resection, tonsillectomy FH: Family History: Cancer (esopahgeal - father), DM, Hypertension, Other (A Fib, demenita, OA) Social History: Smoke: Quit ALCOHOL: rare Drugs: None ROS: GEN: Denies fevers, chills, sweats HEENT: Denies blurred vision, sore throat CV: Denies chest pain RESP: Denies shortness of air, cough GI: Per HPI : Denies hematuria, dysuria ENDO: Denies weight changes NEURO: +near syncope earlier MSK: left leg pain SKIN: Denies jaundice, pruritus Vitals: Vitals: Vital Signs Date Time Temp Pulse Resp B/P (MAP) Pulse Ox O2 Delivery O2 Flow Rate FiO2 09/29/20 07:00 97.6 86 18 137/74 (95) 100 Room Air 97.6 Labs: Labs: Laboratory Tests Test 09/29/20 05:40 09/29/20 06:50 White Blood Count 14.5 x10^3/uL (4.0-11.0) Red Blood Count 3.26 x10^6/uL (3.50-5.40) Hemoglobin 10.1 g/dL (12.0-15.5) Hematocrit 30.5 % (36.0-47.0) Mean Corpuscular Volume 94 fL (79-100) Mean Corpuscular Hemoglobin 31 pg (25-35) Mean Corpuscular Hemoglobin Concent 33 g/dL (31-37) Red Cell Distribution Width 14.1 % (11.5-14.5) Platelet Count 358 x10^3/uL (140-400) Neutrophils (%) (Auto) 83 % (31-73) Lymphocytes (%) (Auto) 8 % (24-48) Monocytes (%) (Auto) 9 % (0-9) Eosinophils (%) (Auto) 0 % (0-3) Basophils (%) (Auto) 0 % (0-3) Neutrophils # (Auto) 12.0 x10^3/uL (1.8-7.7) Lymphocytes # (Auto) 1.2 x10^3/uL (1.0-4.8) Monocytes # (Auto) 1.3 x10^3/uL (0.0-1.1) Eosinophils # (Auto) 0.0 x10^3/uL (0.0-0.7) Basophils # (Auto) 0.0 x10^3/uL (0.0-0.2) Sodium Level 139 mmol/L (136-145) Potassium Level 5.2 mmol/L (3.5-5.1) Chloride Level 106 mmol/L (98-107) Carbon Dioxide Level 24 mmol/L (21-32) Anion Gap 9 (6-14) Blood Urea Nitrogen 79 mg/dL (7-20) Creatinine 1.4 mg/dL (0.6-1.0) Estimated GFR (Cockcroft-Gault) 38.5 Glucose Level 130 mg/dL (70-99) Calcium Level 8.4 mg/dL (8.5-10.1) Gastric Fluid Occult Blood Positive (NEG) Stool Occult Blood Positive (NEG) Allergies: Coded Allergies: No Known Drug Allergies (Unverified , 11/14/18) Medications: Current Medications Medications (Trade) Dose Ordered Sig/Christopher Route PRN Reason Start Time Stop Time Status Last Admin Dose Admin Aspirin (Aspirin Chewable) 81 mg 1X ONCE PO 09/28/20 12:00 09/28/20 12:01 DC 09/28/20 12:21 Pantoprazole Sodium (Protonix) 40 mg 1X ONCE PO 09/28/20 12:00 09/28/20 12:01 DC 09/28/20 12:21 Sodium Chloride 1,000 ml @ 500 mls/hr 1X ONCE IV 09/29/20 07:00 09/29/20 08:59 DC 09/29/20 07:00 Imaging: Imaging: LE MRI IMPRESSION: 1. Nondisplaced fracture of the diaphysis of the proximal tibia just distal to the infrapatellar tendon attachment. 2. Attenuated appearance of the body of the medial, lateral meniscus likely degenerative tears. 3. Severe tricompartmental degenerative changes. 4. Small knee joint effusion with small popliteal cyst. 5. Moderate increased T2 signal identified in the soft tissue about the knee joint likely secondary to injury. Renal US IMPRESSION: Sonographically unremarkable kidneys. Knee X-Ray IMPRESSION: 1. No evidence of acute fracture or dislocation. 2. Severe left knee joint osteoarthritis. PE: GEN: NAD HEENT: Atraumatic, PERRLA LUNGS: CTAB HEART: RRR, no murmurs ABD: NABS, S/ND/NT, no masses EXTREMITY: No edema SKIN: No rashes, no jaundice NEURO/PSYCH: A & O 3 A/P: A/P: Hematemesis, hematochezia (+gastric occult, +Hemoccult) LLE pain - tibial stress fracture, OA Anemia - Hgb drift from 12.8 to 10.2, some increase in BUN as well Leukocytosis on steroids, MAURICIO, hyperkalemia H/o colon cancer s/p resection CRC screen - UTD (last in 2018, recommended 5 year follow-up) Recent constipation Hemorrhoids S/p cholecystectomy NSAID use BMI 61.7 COVID negative 09/29 (and has had vaccines) -- D/w Dr. Argueta - plan for EGD later today r/o PUD - pt agreeable. NPO now. IVF per primary/nephrology. IV PPI. Monitor labs and for recurrent bleeding. Address constipation later on if indicated. CAL ORONA Sep 29, 2020 09:37
--- NOTE | 2020-09-29 09:44 | PDOC ---
DATE OF SERVICE DATE: 09/29/20 TIME: 09:44 SUBJECTIVE ROS Had bloody emesis and a large bm that appeared bloody this morning BP dropped from 127 systolic to 93. T . Given Fluid bolus She is scheduled for scope OBJECTIVE Vital Signs Vital Signs Date Time Temp Pulse Resp B/P (MAP) Pulse Ox O2 Delivery O2 Flow Rate FiO2 09/29/20 07:00 97.6 86 18 137/74 (95) 100 Room Air 97.6 I & 0 Intake and Output 09/29/20 07:00 Intake Total 780 ml Output Total 1750 ml Balance -970 ml Intake Oral 780 ml Output Urine Total 1750 ml # Bowel Movements 1 PHYSICAL EXAM Physical Exam General NAD, Morbidly obese HEEN OM moist Neck Supple Lungs CTA , non labored CV RRR Abd soft , Obese Ext No edema No roblero , No CA or SP tenderness Neuro AXOX3, Grossly no focal deficit DIAGNOSIS/ASSESSMENT Assessment & Plan MAURICIO - Non Oliguric,NSAID use per home meds , UA and renal US unremarkable Stable renal function,BUN elevated 2/2 GI bleed Supportive care, strict I/O, Avoid nephrotoxins, daily labs, Maintain Hydration Monitor ? CKD - patient reports Cr 1.7in 2018- had Gall stones as well. FU Labs few weeks later 1.0 . Per Pt Labs 3 weeks back in ER /Urgent care Cr 1.7 .Pt was able to get to her portal and reports her Cr was 1.4 approx 6 months back GI bleed - Bloody emesis and stool this morning . Plan for scope later today HyperKalemia - mild , monitor Gait instability per primary Intractable left knee pain /Severe left knee joint osteoarthritis- MRI - Nondisplaced fracture of the diaphysis of the proximal tibia just distal to the infrapatellar tendon attachment. Severe tricompartmental degenerative changes. Small knee joint effusion with small popliteal cyst. Moderate increased T2 signal identified in the soft tissue about the knee joint likely secondary to injury. hx Colon Adenocarcinoma Super Morbid obesity COMMENT/RELEVANT DATA Meds Current Medications Medications (Trade) Dose Ordered Sig/Christopher Start Time Stop Time Status Last Admin Dose Admin Acetaminophen (Tylenol) 650 mg PRN Q4HRS PRN 09/24/20 13:30 Acetaminophen/ Hydrocodone Bitart (Lortab 10/325) 1 tab PRN Q6HRS PRN 09/24/20 11:45 09/29/20 05:46 1 TAB Acetaminophen/ Hydrocodone Bitart (Lortab 7.5/325) 1 tab PRN Q6HRS PRN 09/27/20 15:30 Al Hydroxide/Mg Hydroxide (Mylanta Plus Xs) 30 ml PRN DAILY PRN 09/24/20 13:30 Albuterol Sulfate (Ventolin Neb Soln) 2.5 mg PRN Q4HRS PRN 09/24/20 13:30 Aspirin (Aspirin Chewable) 81 mg 1X ONCE 09/28/20 12:00 09/28/20 12:01 DC 09/28/20 12:21 81 MG Carvedilol (Coreg) 6.25 mg BIDWMEALS 09/24/20 12:00 09/28/20 17:41 6.25 MG Clonidine HCl (Catapres) 0.1 mg PRN Q6HRS PRN 09/24/20 13:30 09/27/20 03:31 0.1 MG Diphenhydramine HCl (Benadryl) 25 mg PRN Q4HRS PRN 09/24/20 13:30 Docusate Sodium (Colace) 100 mg PRN BID PRN 09/24/20 13:30 09/28/20 20:43 100 MG Enoxaparin Sodium (Lovenox 60mg Syringe) 60 mg Q12HR 09/24/20 21:00 09/28/20 20:44 60 MG Fentanyl Citrate (Fentanyl 2ml Vial) 50 mcg PRN Q2HRS PRN 09/23/20 22:15 09/23/20 23:55 DC Guaifenesin (Robitussin) 200 mg PRN Q4HRS PRN 09/24/20 13:30 Hydrochlorothiazide (Microzide) 25 mg DAILY 09/24/20 12:00 09/28/20 08:11 25 MG Hydromorphone HCl (Dilaudid) 0.5 mg PRN Q4HRS PRN 09/24/20 00:00 09/28/20 12:25 0.5 MG Lisinopril (Prinivil) 5 mg DAILY 09/24/20 12:00 09/24/20 13:40 DC 09/24/20 12:53 5 MG Lorazepam (Ativan) 0.5 mg PRN Q4HRS PRN 09/24/20 13:30 09/26/20 16:32 0.5 MG Meloxicam (Mobic) 15 mg DAILY 09/24/20 12:00 09/25/20 17:52 DC 09/25/20 08:53 15 MG Methylprednisolone Sodium Succinate (SOLU-Medrol 40MG VIAL) 40 mg Q8HRS 09/24/20 08:30 09/29/20 05:43 40 MG Ondansetron HCl (Zofran) 4 mg PRN Q4HRS PRN 09/24/20 13:30 Pantoprazole Sodium (Protonix) 40 mg 1X ONCE 09/28/20 12:00 09/28/20 12:01 DC 09/28/20 12:21 40 MG Sodium Monofluorophosphate (Fleet Adult) 133 ml PRN DAILY PRN 09/24/20 13:30 Sodium Chloride 1,000 ml @ 500 mls/hr 1X ONCE 09/29/20 07:00 09/29/20 08:59 DC 09/29/20 07:00 500 MLS/HR Sodium Chloride (Normal Saline Flush) 3 ml QSHIFT PRN 09/24/20 13:30 Zolpidem Tartrate (Ambien) 5 mg PRN QHS PRN 09/24/20 13:30 09/28/20 20:44 5 MG Lab Laboratory Tests Test 09/29/20 05:40 09/29/20 06:50 White Blood Count 14.5 x10^3/uL (4.0-11.0) Red Blood Count 3.26 x10^6/uL (3.50-5.40) Hemoglobin 10.1 g/dL (12.0-15.5) Hematocrit 30.5 % (36.0-47.0) Mean Corpuscular Volume 94 fL (79-100) Mean Corpuscular Hemoglobin 31 pg (25-35) Mean Corpuscular Hemoglobin Concent 33 g/dL (31-37) Red Cell Distribution Width 14.1 % (11.5-14.5) Platelet Count 358 x10^3/uL (140-400) Neutrophils (%) (Auto) 83 % (31-73) Lymphocytes (%) (Auto) 8 % (24-48) Monocytes (%) (Auto) 9 % (0-9) Eosinophils (%) (Auto) 0 % (0-3) Basophils (%) (Auto) 0 % (0-3) Neutrophils # (Auto) 12.0 x10^3/uL (1.8-7.7) Lymphocytes # (Auto) 1.2 x10^3/uL (1.0-4.8) Monocytes # (Auto) 1.3 x10^3/uL (0.0-1.1) Eosinophils # (Auto) 0.0 x10^3/uL (0.0-0.7) Basophils # (Auto) 0.0 x10^3/uL (0.0-0.2) Sodium Level 139 mmol/L (136-145) Potassium Level 5.2 mmol/L (3.5-5.1) Chloride Level 106 mmol/L (98-107) Carbon Dioxide Level 24 mmol/L (21-32) Anion Gap 9 (6-14) Blood Urea Nitrogen 79 mg/dL (7-20) Creatinine 1.4 mg/dL (0.6-1.0) Estimated GFR (Cockcroft-Gault) 38.5 Glucose Level 130 mg/dL (70-99) Calcium Level 8.4 mg/dL (8.5-10.1) Gastric Fluid Occult Blood Positive (NEG) Stool Occult Blood Positive (NEG) Results All relevant outside records, renal labs, imaging studies, telemetry/EKG's were reviewed. Other MRI of the left knee without contrast HISTORY: History of left knee pain COMPARISON: None TECHNIQUE: Multiplanar, multisequence MR imaging of the left knee was performed without contrast. FINDINGS: Severe joint space loss identified in the medial, lateral, patellofemoral compartments. Multiple subchondral cystic changes identified in the medial, lateral, patellofemoral compartments likely degenerative changes. Moderate to large osteophyte formation identified in the medial, lateral, patellofemoral compartments. Small knee joint effusion is identified. The anterior cruciate ligament, posterior cruciate ligament appear intact. However evaluation of the menisci is very limited due to motion and due to patient body habitus. There is probably attenuated appearance of the body of the medial, lateral meniscus likely old degenerative tears. There is nondisplaced fracture of the diaphysis of the proximal tibia just distal to the infrapatellar tendon attachment. Small popliteal cyst. There is moderate increased T2 signal identified in the soft tissue about the knee joint likely secondary to injury. IMPRESSION: 1. Nondisplaced fracture of the diaphysis of the proximal tibia just distal to the infrapatellar tendon attachment. 2. Attenuated appearance of the body of the medial, lateral meniscus likely degenerative tears. 3. Severe tricompartmental degenerative changes. 4. Small knee joint effusion with small popliteal cyst. 5. Moderate increased T2 signal identified in the soft tissue about the knee joint likely secondary to injury. Justicifation of Admission Dx: Justifications for Admission: Justification of Admission Dx: Yes ASHLEY OLGUIN MD Sep 29, 2020 09:44
[2020-09-29] MEDS: IV NORMAL SALINE 1000ML BAG 1,000 ML IV SCH ×2 (10:31→21:13)
[2020-09-29] MEDS: HYDROmorphone 2 MG/ML VIAL IVP PRN ×2 (10:32→18:01)
--- NOTE | 2020-09-29 11:39 | NUR ---
SS following up with discharge planning. SS reviewed pt chart and discussed with pt RN. Pt is currently on room air. COVID19 negative. Immobilizer being ordered through [facility]. PT/OT recommended acute rehabilitation. SS met with pt to discuss discharge planning and acute rehabilitation. Pt agreeable to acute rehabilitation and requested referral be phoned and faxed to [facility] [address], ; fax [phone]. SS phoned and faxed referral as requested. Pt vomited this morning. GI consulted. SS will continue to follow for discharge planning. Addendum: 09/29/20 at 1231 by PATY BOSE SS Pt accepted at [facility] [address], ; fax [phone], pending insurance authorization.
--- NOTE | 2020-09-29 15:28 | PDOC ---
[employer] PROGRESS NOTE Date of Service DOS: DATE: 09/29/20 TIME: 15:25 Chief Complaint Chief Complaint VTE Prophylaxis Ordered VTE Prophylaxis Devices: Contraindicated VTE Pharmacological Prophylaxi: Yes Assessment/Plan Assessment/Plan IMPRESSION: Gait instability, high fall risk Intractable left knee pain Severe left knee joint osteoarthritis hx colon ADENOCARCINOMA Super Morbid obesity MAURICIO due to vasomotor nephropathy HTN plan admit ortho consult PT/OT FALL PRECAUTIONS PAIN CONTROL dvt prophylaxis Avoid nephrotoxins, hold babs trend renal fx Nephrology consult D/W RN Justifications for Admission Other Justification Discharge Recommendations * Acute Rehab facility Discharge Recommendation - DME * Rolling Walker needed * in order to complete ADLs * and ambulation safely History of Present Illness History of Present Illness 59 YR OLD FEMALE seen in ER with severe left kneev pain, unable to safely ambulate, cr elevated, is a high fall risk, ortho and nephrology consulted pain has been more severe x 3 weeks, very severe x 2 days, heard knee " pop" 2 days ago, now unable to raise knee, pain worse with any movement, MRI KNEE PENDING ortho consult PT/OT FALL PRECAUTIONS PAIN CONTROL dvt prophylaxis Avoid nephrotoxins, hold babs trend renal fx Nephrology consult avoid nephrotoxins 09/26/20: Patient afebrile. She reports left knee pain 6/10, worse with movement. MRI was ordered over the weekend but not performed. Will reorder MRI, per orthopedic surgery. Kidney function slightly improved but stable at creatinine 1.5. 09/27/2020: Afebrile, no acute events overnight. Patient's MRI canceled again yesterday afternoon. After discussion with administration and radiology, patient will receive MRI of her left knee today to evaluate for hairline fracture. Further recommendations pending MRI results. 09/28/2020: Patient without significant plaints today. She was able to transition to bedside without significant discomfort. MRI yesterday of left lower extr emity showed nondisplaced fracture of the diaphysis of the proximal tibia and likely degenerative degenerative tears of the medial and lateral meniscus. Did not work with occupational therapy this morning as she was awaiting recommendations from orthopedic surgery. Still is agreeable to acute rehab at this time. 09/29/2020: Patient reports bowel movement this morning after prolonged period of constipation. She reports bloody bowel movement followed by episode of hematemesis. She states that she has a history of colon cancer, but is never had any episode of hematemesis prior. Hemoglobin 14.6 on admission, and hemoglobin 10.1 today. Consultation was placed to GI. She will have EGD today. Orthopedic surgery recommending knee immobilizer and nonweightbearing. Patient is agreeable to SNU upon discharge. Repeat the x-ray in 2 weeks. Vitals/I&O Vitals/I&O: Vital Signs Date Time Temp Pulse Resp B/P (MAP) Pulse Ox O2 Delivery O2 Flow Rate FiO2 09/29/20 14:58 98.1 83 16 149/75 (99) 100 Room Air 98.1 I & O 09/28/20 09/28/20 09/29/20 15:00 23:00 07:00 Intake Total 300 ml 240 ml 240 ml Output Total 200 ml 500 ml 1050 ml Balance 100 ml -260 ml -810 ml Physical Exam General: Alert, Oriented X3, Cooperative, No acute distress Heart: No murmurs Abdomen: Normal bowel sounds, Soft, No tenderness, No hepatosplenomegaly Extremities: No clubbing, No cyanosis Skin: No rashes Labs Labs: Laboratory Tests Test 09/29/20 05:40 09/29/20 06:50 09/29/20 09:24 White Blood Count 14.5 x10^3/uL (4.0-11.0) Red Blood Count 3.26 x10^6/uL (3.50-5.40) Hemoglobin 10.1 g/dL (12.0-15.5) Hematocrit 30.5 % (36.0-47.0) Mean Corpuscular Volume 94 fL (79-100) Mean Corpuscular Hemoglobin 31 pg (25-35) Mean Corpuscular Hemoglobin Concent 33 g/dL (31-37) Red Cell Distribution Width 14.1 % (11.5-14.5) Platelet Count 358 x10^3/uL (140-400) Neutrophils (%) (Auto) 83 % (31-73) Lymphocytes (%) (Auto) 8 % (24-48) Monocytes (%) (Auto) 9 % (0-9) Eosinophils (%) (Auto) 0 % (0-3) Basophils (%) (Auto) 0 % (0-3) Neutrophils # (Auto) 12.0 x10^3/uL (1.8-7.7) Lymphocytes # (Auto) 1.2 x10^3/uL (1.0-4.8) Monocytes # (Auto) 1.3 x10^3/uL (0.0-1.1) Eosinophils # (Auto) 0.0 x10^3/uL (0.0-0.7) Basophils # (Auto) 0.0 x10^3/uL (0.0-0.2) Sodium Level 139 mmol/L (136-145) Potassium Level 5.2 mmol/L (3.5-5.1) Chloride Level 106 mmol/L (98-107) Carbon Dioxide Level 24 mmol/L (21-32) Anion Gap 9 (6-14) Blood Urea Nitrogen 79 mg/dL (7-20) Creatinine 1.4 mg/dL (0.6-1.0) Estimated GFR (Cockcroft-Gault) 38.5 Glucose Level 130 mg/dL (70-99) Calcium Level 8.4 mg/dL (8.5-10.1) Gastric Fluid Occult Blood Positive (NEG) Stool Occult Blood Positive (NEG) SARS-CoV-2 Antigen (Rapid) Negative (NEGATIVE) Assessment and Plan Assessmemt and Plan Problems Medical Problems: (1) Intractable pain Status: Acute (2) Knee pain, left Status: Acute Comment Review of Relevant I have reviewed the following items dilan (where applicable) has been applied. Medications: Current Medications Medications (Trade) Dose Ordered Sig/Christopher Route PRN Reason Start Time Stop Time Status Last Admin Dose Admin Sodium Chloride 1,000 ml @ 500 mls/hr 1X ONCE IV 09/29/20 07:00 09/29/20 08:59 DC 09/29/20 07:00 Sodium Chloride 1,000 ml @ 75 mls/hr [id number] IV 09/29/20 11:00 09/29/20 10:31 Justifications for Admission General Conditions Other justification for admit: gait instability Other Justification SUDHIR MCKEON MD Sep 29, 2020 15:28
[2020-09-29] MEDS ORDERED: IV RINGERS,LACTATED 1000ML 1,000 ML IV SCH (16:00)
[2020-09-29] MEDS ORDERED: LIDOCAINE 2% PF 5 ML VIAL. ONE (16:56)
[2020-09-29] MEDS ORDERED: PROPOFOL 10 MG/ML (20ML) VIAL. IV ONE (16:56)
--- NOTE | 2020-09-29 17:23 | PDOC4 ---
Operative Note Operative Note EGD with biopsies/APC treatment Meds propofol per anesthesia Pre-op dx Acute blood loss anemia/hematemesis post-op gastric antral ulcer s/p apc treatment/biopsies adherent clot Plan PPI therapy serial CBCs transfusional support to maintain Hg > 7 avoid NSAIDS SOFIA SERRANO MD Sep 29, 2020 17:23
[2020-09-29] MEDS: HYDROcodone/APAP 7.5/325MG 1 TAB TABLET PO PRN (21:23)
[2020-09-30 02:42] VITALS: BP 140/67
[2020-09-30] MEDS: ASPIRIN CHEWABLE 81 MG TABLET. PO SCH (05:52)
[2020-09-30] MEDS: methylPREDNISolone SOD SUCC PF 40 MG/ML VIAL. IV SCH (05:57)
[2020-09-30] MEDS: HYDROcodone/APAP 10/325 1 TAB TABLET PO PRN ×3 (06:09→23:26)
[2020-09-30 06:50] LABS: BASO % 0 % (0-3); EOS % 0 % (0-3); HEMATOCRIT 28.8 % (36.0-47.0); HEMOGLOBIN 9.5 g/dL (12.0-15.5); LYMPH # 1.4 x10^3/uL (1.0-4.8); LYMPH % 9 % (24-48); MEAN CORPUSCULAR HEMOGLOBIN 31 pg (25-35); MEAN CORPUSCULAR HGB CONC 33 g/dL (31-37); MEAN CORPUSCULAR VOLUME 93 fL (79-100); MONO # 1.4 x10^3/uL (0.0-1.1); MONO % 9 % (0-9); NEUT # 13.1 x10^3/uL (1.8-7.7); NEUT % 82 % (31-73); PLATELET COUNT 364 x10^3/uL (140-400); WHITE BLOOD COUNT 15.9 x10^3/uL (4.0-11.0)
[2020-09-30 07:00] VITALS: BP 113/68
[2020-09-30 07:19] LABS: CALCIUM 8.8 mg/dL (8.5-10.1); CREATININE 1.4 mg/dL (0.6-1.0); GFR 38.5; POTASSIUM 4.8 mmol/L (3.5-5.1); TOTAL BILIRUBIN 0.4 mg/dL (0.2-1.0)
[2020-09-30] MEDS ORDERED: PANTOPRAZOLE IV PUSH 40 MG VIAL. IVP SCH (07:30)
[2020-09-30] MEDS: CARVEDILOL 6.25 MG TABLET. PO SCH ×2 (09:19→17:01)
[2020-09-30] MEDS: hydroCHLOROthiazide 12.5 MG CAPSULE PO SCH (09:19)
--- NOTE | 2020-09-30 09:19 | PDOC ---
DATE OF SERVICE DATE: 09/30/20 TIME: 09:19 SUBJECTIVE ROS States feeling better than yesterday; s/p EGD No Vomiting/Hematemesis OBJECTIVE Vital Signs Vital Signs Date Time Temp Pulse Resp B/P (MAP) Pulse Ox O2 Delivery O2 Flow Rate FiO2 09/30/20 07:00 97.8 75 18 113/68 (83) 98 Room Air 97.8 I & 0 Intake and Output 09/30/20 07:00 Intake Total 0 ml Output Total 3400 ml Balance -3400 ml Intake Oral 0 ml Output Urine Total 3400 ml PHYSICAL EXAM Physical Exam General NAD, Morbidly obese HEEN OM moist Neck Supple Lungs CTA , non labored CV RRR Abd soft , Obese Ext No edema No roblero , No CA or SP tenderness Neuro AXOX3, Grossly no focal deficit DIAGNOSIS/ASSESSMENT Assessment & Plan MAURICIO - Non Oliguric, Hx of NSAID use per home meds , UA and renal US unremarkable Stable renal function, BUN elevated 2/2 GI bleed Supportive care, strict I/O, Avoid nephrotoxins, daily labs, Maintain Hydration Monitor CKD stage 3 B - Cr was 1.4 approx 6 months back GI bleed - Hematemesis on 09/29 s/p EGD gastric antral ulcer s/p apc treatment/biopsies adherent clot Anemia- Hgb decreased, 2/2 above , started SHIRA HyperKalemia - resolved Gait instability primary managing Intractable left knee pain /Severe left knee joint osteoarthritis- MRI - Nondisplaced fracture of the diaphysis of the proximal tibia just distal to the infrapatellar tendon attachment. Severe tricompartmental degenerative changes. Small knee joint effusion with small popliteal cyst. Moderate increased T2 signal identified in the soft tissue about the knee joint likely secondary to injury. hx Colon Adenocarcinoma Super Morbid obesity COMMENT/RELEVANT DATA Meds Current Medications Medications (Trade) Dose Ordered Sig/Christopher Start Time Stop Time Status Last Admin Dose Admin Acetaminophen (Tylenol) 650 mg PRN Q4HRS PRN 09/24/20 13:30 Acetaminophen/ Hydrocodone Bitart (Lortab 10/325) 1 tab PRN Q6HRS PRN 09/24/20 11:45 09/30/20 06:09 1 TAB Acetaminophen/ Hydrocodone Bitart (Lortab 7.5/325) 1 tab PRN Q6HRS PRN 09/27/20 15:30 09/29/20 21:23 1 TAB Al Hydroxide/Mg Hydroxide (Mylanta Plus Xs) 30 ml PRN DAILY PRN 09/24/20 13:30 Albuterol Sulfate (Ventolin Neb Soln) 2.5 mg PRN Q4HRS PRN 09/24/20 13:30 Aspirin (Aspirin Chewable) 81 mg 1X ONCE 09/28/20 12:00 09/28/20 12:01 DC 09/28/20 12:21 81 MG Carvedilol (Coreg) 6.25 mg BIDWMEALS 09/24/20 12:00 09/29/20 18:00 6.25 MG Clonidine HCl (Catapres) 0.1 mg PRN Q6HRS PRN 09/24/20 13:30 09/27/20 03:31 0.1 MG Diphenhydramine HCl (Benadryl) 25 mg PRN Q4HRS PRN 09/24/20 13:30 Docusate Sodium (Colace) 100 mg PRN BID PRN 09/24/20 13:30 09/28/20 20:43 100 MG Enoxaparin Sodium (Lovenox 60mg Syringe) 60 mg Q12HR 09/24/20 21:00 09/29/20 14:39 DC 09/28/20 20:44 60 MG Fentanyl Citrate (Fentanyl 2ml Vial) 50 mcg PRN Q2HRS PRN 09/23/20 22:15 09/23/20 23:55 DC Guaifenesin (Robitussin) 200 mg PRN Q4HRS PRN 09/24/20 13:30 Hydrochlorothiazide (Microzide) 25 mg DAILY 09/24/20 12:00 09/28/20 08:11 25 MG Hydromorphone HCl (Dilaudid) 0.5 mg PRN Q4HRS PRN 09/24/20 00:00 09/29/20 18:01 0.5 MG Lidocaine HCl (Lidocaine Pf 2% Vial) 5 ml STK-MED ONCE 09/29/20 16:56 09/29/20 16:56 DC Lisinopril (Prinivil) 5 mg DAILY 09/24/20 12:00 09/24/20 13:40 DC 09/24/20 12:53 5 MG Lorazepam (Ativan) 0.5 mg PRN Q4HRS PRN 09/24/20 13:30 09/26/20 16:32 0.5 MG Meloxicam (Mobic) 15 mg DAILY 09/24/20 12:00 09/25/20 17:52 DC 09/25/20 08:53 15 MG Methylprednisolone Sodium Succinate (SOLU-Medrol 40MG VIAL) 40 mg Q8HRS 09/24/20 08:30 09/30/20 05:57 40 MG Ondansetron HCl (Zofran) 4 mg PRN Q4HRS PRN 09/24/20 13:30 Pantoprazole Sodium (PROTONIX VIAL for IV PUSH) 40 mg DAILYAC 09/30/20 07:30 09/30/20 05:57 40 MG Pantoprazole Sodium (Protonix) 40 mg 1X ONCE 09/28/20 12:00 09/28/20 12:01 DC 09/28/20 12:21 40 MG Propofol (Diprivan) 200 mg STK-MED ONCE 09/29/20 16:56 09/29/20 16:56 DC Ringer's Solution 1,000 ml @ 75 mls/hr [id number] 09/29/20 16:00 09/30/20 08:41 DC Sodium Monofluorophosphate (Fleet Adult) 133 ml PRN DAILY PRN 09/24/20 13:30 Sodium Chloride 1,000 ml @ 75 mls/hr [id number] 09/29/20 11:00 09/29/20 21:13 75 MLS/HR Sodium Chloride (Normal Saline Flush) 3 ml QSHIFT PRN 09/24/20 13:30 Zolpidem Tartrate (Ambien) 5 mg PRN QHS PRN 09/24/20 13:30 09/28/20 20:44 5 MG Lab Laboratory Tests Test 09/29/20 09:24 09/30/20 06:20 SARS-CoV-2 Antigen (Rapid) Negative (NEGATIVE) White Blood Count 15.9 x10^3/uL (4.0-11.0) Red Blood Count 3.10 x10^6/uL (3.50-5.40) Hemoglobin 9.5 g/dL (12.0-15.5) Hematocrit 28.8 % (36.0-47.0) Mean Corpuscular Volume 93 fL (79-100) Mean Corpuscular Hemoglobin 31 pg (25-35) Mean Corpuscular Hemoglobin Concent 33 g/dL (31-37) Red Cell Distribution Width 14.0 % (11.5-14.5) Platelet Count 364 x10^3/uL (140-400) Neutrophils (%) (Auto) 82 % (31-73) Lymphocytes (%) (Auto) 9 % (24-48) Monocytes (%) (Auto) 9 % (0-9) Eosinophils (%) (Auto) 0 % (0-3) Basophils (%) (Auto) 0 % (0-3) Neutrophils # (Auto) 13.1 x10^3/uL (1.8-7.7) Lymphocytes # (Auto) 1.4 x10^3/uL (1.0-4.8) Monocytes # (Auto) 1.4 x10^3/uL (0.0-1.1) Eosinophils # (Auto) 0.0 x10^3/uL (0.0-0.7) Basophils # (Auto) 0.0 x10^3/uL (0.0-0.2) Sodium Level 141 mmol/L (136-145) Potassium Level 4.8 mmol/L (3.5-5.1) Chloride Level 108 mmol/L (98-107) Carbon Dioxide Level 25 mmol/L (21-32) Anion Gap 8 (6-14) Blood Urea Nitrogen 77 mg/dL (7-20) Creatinine 1.4 mg/dL (0.6-1.0) Estimated GFR (Cockcroft-Gault) 38.5 BUN/Creatinine Ratio 55 (6-20) Glucose Level 138 mg/dL (70-99) Calcium Level 8.8 mg/dL (8.5-10.1) Total Bilirubin 0.4 mg/dL (0.2-1.0) Aspartate Amino Transf (AST/SGOT) 17 U/L (15-37) Alanine Aminotransferase (ALT/SGPT) 38 U/L (14-59) Alkaline Phosphatase 57 U/L (46-116) Total Protein 6.0 g/dL (6.4-8.2) Albumin 3.0 g/dL (3.4-5.0) Albumin/Globulin Ratio 1.0 (1.0-1.7) Results All relevant outside records, renal labs, imaging studies, telemetry/EKG's were reviewed. Justicifation of Admission Dx: Justifications for Admission: Justification of Admission Dx: Yes ASHLEY OLGUIN MD Sep 30, 2020 09:19
--- NOTE | 2020-09-30 09:42 | PDOC ---
Date of Service: DATE: 09/30/20 TIME: 09:37 Subjective: Subjective: Feels weak today, doesn't think ready to go to rehab. No bleeding, hasn't stooled. Had ice chips overnight, then GI soft diet for breakfast. Objective: Objective: Still has NPO order. Vital Signs: Vital Signs Date Time Temp Pulse Resp B/P (MAP) Pulse Ox O2 Delivery O2 Flow Rate FiO2 09/30/20 09:19 75 113/68 09/30/20 07:00 97.8 18 98 Room Air 97.8 Labs: Laboratory Tests Test 09/30/20 06:20 White Blood Count 15.9 x10^3/uL Red Blood Count 3.10 x10^6/uL Hemoglobin 9.5 g/dL Hematocrit 28.8 % Mean Corpuscular Volume 93 fL Mean Corpuscular Hemoglobin 31 pg Mean Corpuscular Hemoglobin Concent 33 g/dL Red Cell Distribution Width 14.0 % Platelet Count 364 x10^3/uL Neutrophils (%) (Auto) 82 % Lymphocytes (%) (Auto) 9 % Monocytes (%) (Auto) 9 % Eosinophils (%) (Auto) 0 % Basophils (%) (Auto) 0 % Neutrophils # (Auto) 13.1 x10^3/uL Lymphocytes # (Auto) 1.4 x10^3/uL Monocytes # (Auto) 1.4 x10^3/uL Eosinophils # (Auto) 0.0 x10^3/uL Basophils # (Auto) 0.0 x10^3/uL Sodium Level 141 mmol/L Potassium Level 4.8 mmol/L Chloride Level 108 mmol/L Carbon Dioxide Level 25 mmol/L Anion Gap 8 Blood Urea Nitrogen 77 mg/dL Creatinine 1.4 mg/dL Estimated GFR (Cockcroft-Gault) 38.5 BUN/Creatinine Ratio 55 Glucose Level 138 mg/dL Calcium Level 8.8 mg/dL Total Bilirubin 0.4 mg/dL Aspartate Amino Transf (AST/SGOT) 17 U/L Alanine Aminotransferase (ALT/SGPT) 38 U/L Alkaline Phosphatase 57 U/L Total Protein 6.0 g/dL Albumin 3.0 g/dL Albumin/Globulin Ratio 1.0 Imaging: EGD 09/29 Pre-op dx Acute blood loss anemia/hematemesis post-op gastric antral ulcer s/p apc treatment/biopsies adherent clot Plan PPI therapy serial CBCs transfusional support to maintain Hg > 7 avoid NSAIDS PE: GEN: NAD LUNGS: CTAB HEART: RRR ABD: NABS, S/ND/NT NEURO/PSYCH: A & O 3 A/P: Antral ulcer s/p APC Hematemesis, hematochezia - no recurrence Anemia - more drift in Hgb w/o further bleeding LLE pain - tibial stress fracture, OA Leukocytosis on steroids, MAURICIO H/o colon cancer s/p resection -- Tolerated GI soft diet today w/o further bleeding. Would remain inpt for now from GI standpoint, continue PPI, follow Hgb. Avoid NSAIDs w/ large ulcer. Justicifation of Admission Dx: Justifications for Admission: Justification of Admission Dx: Yes CAL ORONA Sep 30, 2020 09:42
--- NOTE | 2020-09-30 10:12 | PDOC ---
[employer] PROGRESS NOTE Date of Service DOS: DATE: 09/30/20 TIME: 10:09 Chief Complaint Chief Complaint VTE Prophylaxis Ordered VTE Prophylaxis Devices: Contraindicated VTE Pharmacological Prophylaxi: Yes Assessment/Plan Assessment/Plan IMPRESSION: Gait instability, high fall risk Intractable left knee pain Severe left knee joint osteoarthritis hx colon ADENOCARCINOMA Super Morbid obesity MAURICIO due to vasomotor nephropathy HTN plan admit ortho consult PT/OT FALL PRECAUTIONS PAIN CONTROL dvt prophylaxis Avoid nephrotoxins, hold babs trend renal fx Nephrology consult D/W RN Justifications for Admission Other Justification Discharge Recommendations * Acute Rehab facility Discharge Recommendation - DME * Rolling Walker needed * in order to complete ADLs * and ambulation safely History of Present Illness History of Present Illness 59 YR OLD FEMALE seen in ER with severe left kneev pain, unable to safely ambulate, cr elevated, is a high fall risk, ortho and nephrology consulted pain has been more severe x 3 weeks, very severe x 2 days, heard knee " pop" 2 days ago, now unable to raise knee, pain worse with any movement, MRI KNEE PENDING ortho consult PT/OT FALL PRECAUTIONS PAIN CONTROL dvt prophylaxis Avoid nephrotoxins, hold babs trend renal fx Nephrology consult avoid nephrotoxins 09/26/20: Patient afebrile. She reports left knee pain 6/10, worse with movement. MRI was ordered over the weekend but not performed. Will reorder MRI, per orthopedic surgery. Kidney function slightly improved but stable at creatinine 1.5. 09/27/2020: Afebrile, no acute events overnight. Patient's MRI canceled again yesterday afternoon. After discussion with administration and radiology, patient will receive MRI of her left knee today to evaluate for hairline fracture. Further recommendations pending MRI results. 09/28/2020: Patient without significant plaints today. She was able to transition to bedside without significant discomfort. MRI yesterday of left lower extr emity showed nondisplaced fracture of the diaphysis of the proximal tibia and likely degenerative degenerative tears of the medial and lateral meniscus. Did not work with occupational therapy this morning as she was awaiting recommendations from orthopedic surgery. Still is agreeable to acute rehab at this time. 09/29/2020: Patient reports bowel movement this morning after prolonged period of constipation. She reports bloody bowel movement followed by episode of hematemesis. She states that she has a history of colon cancer, but is never had any episode of hematemesis prior. Hemoglobin 14.6 on admission, and hemoglobin 10.1 today. Consultation was placed to GI. She will have EGD today. Orthopedic surgery recommending knee immobilizer and nonweightbearing. Patient is agreeable to SNU upon discharge. Repeat the x-ray in 2 weeks. 09/30/2020: Patient had EGD that showed gastric antral ulcer s/p APC treatment with biopsies. PPI therapy and continue to monitor hemoglobin; avoid NSAIDs. Discussed with director of social services, left knee brace to be provided today and encourage patient to work with PT as tolerable. Will provide SCD orders for patient to be able to possibly discharge to rehab tomorrow. Discussed with RN. Vitals/I&O Vitals/I&O: Vital Signs Date Time Temp Pulse Resp B/P (MAP) Pulse Ox O2 Delivery O2 Flow Rate FiO2 09/30/20 09:19 75 113/68 09/30/20 07:00 97.8 18 98 Room Air 97.8 I & O 09/29/20 09/29/20 09/30/20 15:00 23:00 07:00 Intake Total 0 ml Output Total 1300 ml 1000 ml 1100 ml Balance -1300 ml -1000 ml -1100 ml Physical Exam General: Alert, Oriented X3, Cooperative, No acute distress Heart: No murmurs Abdomen: Normal bowel sounds, Soft, No tenderness, No hepatosplenomegaly Extremities: No clubbing, No cyanosis Skin: No rashes Labs Labs: Laboratory Tests Test 09/30/20 06:20 White Blood Count 15.9 x10^3/uL (4.0-11.0) Red Blood Count 3.10 x10^6/uL (3.50-5.40) Hemoglobin 9.5 g/dL (12.0-15.5) Hematocrit 28.8 % (36.0-47.0) Mean Corpuscular Volume 93 fL (79-100) Mean Corpuscular Hemoglobin 31 pg (25-35) Mean Corpuscular Hemoglobin Concent 33 g/dL (31-37) Red Cell Distribution Width 14.0 % (11.5-14.5) Platelet Count 364 x10^3/uL (140-400) Neutrophils (%) (Auto) 82 % (31-73) Lymphocytes (%) (Auto) 9 % (24-48) Monocytes (%) (Auto) 9 % (0-9) Eosinophils (%) (Auto) 0 % (0-3) Basophils (%) (Auto) 0 % (0-3) Neutrophils # (Auto) 13.1 x10^3/uL (1.8-7.7) Lymphocytes # (Auto) 1.4 x10^3/uL (1.0-4.8) Monocytes # (Auto) 1.4 x10^3/uL (0.0-1.1) Eosinophils # (Auto) 0.0 x10^3/uL (0.0-0.7) Basophils # (Auto) 0.0 x10^3/uL (0.0-0.2) Sodium Level 141 mmol/L (136-145) Potassium Level 4.8 mmol/L (3.5-5.1) Chloride Level 108 mmol/L (98-107) Carbon Dioxide Level 25 mmol/L (21-32) Anion Gap 8 (6-14) Blood Urea Nitrogen 77 mg/dL (7-20) Creatinine 1.4 mg/dL (0.6-1.0) Estimated GFR (Cockcroft-Gault) 38.5 BUN/Creatinine Ratio 55 (6-20) Glucose Level 138 mg/dL (70-99) Calcium Level 8.8 mg/dL (8.5-10.1) Total Bilirubin 0.4 mg/dL (0.2-1.0) Aspartate Amino Transf (AST/SGOT) 17 U/L (15-37) Alanine Aminotransferase (ALT/SGPT) 38 U/L (14-59) Alkaline Phosphatase 57 U/L (46-116) Total Protein 6.0 g/dL (6.4-8.2) Albumin 3.0 g/dL (3.4-5.0) Albumin/Globulin Ratio 1.0 (1.0-1.7) Assessment and Plan Assessmemt and Plan Problems Medical Problems: (1) Intractable pain Status: Acute (2) Knee pain, left Status: Acute Comment Review of Relevant I have reviewed the following items dilan (where applicable) has been applied. Medications: Current Medications Medications (Trade) Dose Ordered Sig/Christopher Route PRN Reason Start Time Stop Time Status Last Admin Dose Admin Sodium Chloride 1,000 ml @ 75 mls/hr [id number] IV 09/29/20 11:00 09/29/20 21:13 Pantoprazole Sodium (PROTONIX VIAL for IV PUSH) 40 mg DAILYAC IVP 09/30/20 07:30 09/30/20 09:43 DC 09/30/20 05:57 Justifications for Admission General Conditions Other justification for admit: gait instability Other Justification SUDHIR MCKEON MD Sep 30, 2020 10:12
--- NOTE | 2020-09-30 10:14 | NUR ---
SS following up with discharge planning. SS reviewed pt chart and discussed with pt RN. Pt is currently on room air. COVID19 negative. PT/OT recommended acute rehabilitation. Pt accepted at [facility], ; fax [phone]. Insurance authorization received. Immobilizer to be delivered by [employer] today. EGD was completed on 09/29/2020. GI recommending pt stay one more night. Discharge plan is currently to discharge to [facility] tomorrow. Physician working on orders. SS will continue to follow for discharge planning. Addendum: 09/30/20 at 1150 by PATY BOSE SS Discharge orders phoned and faxed to [facility] on 10/01/2020. SS phoned and faxed discharge orders to [facility]. Pt will discharge tomorrow, 10/01/2020, and go to [facility] at [address] [facility] to provide transportation. Pt and pt's RN notified.
[2020-09-30] MEDS ORDERED: SUCR1TAB35 PO (10:22)
[2020-09-30] MEDS ORDERED: PANT40TA77 PO (10:22)
--- NOTE | 2020-09-30 10:25 | SNU/HH DC ---
DISCHARGE ORDERS DISCHARGE INFORMATION: DISCHARGE DATE: Sep 30, 2020 FINAL DIAGNOSIS Problems Medical Problems: (1) Intractable pain Status: Acute (2) Knee pain, left Status: Acute CONDITION ON DISCHARGE: Stable CODE STATUS: Code Status: Full RETIREMENT: SNF STAY <30 DAYS: Yes POST DISCHARGE ORDERS: DIET AFTER DISCHARGE: Cardiac TREATMENT/EQUIPMENT ORDERS: Physical Therapy For: Evalulation/Treatment Occupational Therapy For: Evaluation/Treatment DISCHARGE MEDICATIONS: Home Meds Active Scripts Pantoprazole Sodium (PANTOPRAZOLE SODIUM ) 40 Mg Tablet.dr, 40 MG PO DAILYAC for ulcer, #30 TAB.SR 1 Refill Prov:SUDHIR MCKEON MD 09/30/20 Sucralfate (CARAFATE) 1 Gm Tablet, 1 GM PO BIDAC for ulcer, #60 TAB 1 Refill Prov:SUDHIR MCKEON MD 09/30/20 Reported Medications Methylprednisolone (METHYLPREDNISOLONE) 4 Mg Tab.ds.pk, 1 TAB PO UD for arthritis 09/24/20 Hydrocodone/Acetaminophen (Hydrocodone-Acetamin 10-325 mg) 1 Each Tablet, 1 TAB PO PRN Q6HRS PRN for PAIN 09/24/20 Tramadol Hcl (TRAMADOL HCL) 50 Mg Tablet, 50 MG PO Q6HRS PRN for PAIN, TAB 11/14/18 Omeprazole Magnesium (PRILOSEC OTC) 20 Mg Tablet.dr, 20 MG PO DAILY for gerd, TAB 11/14/18 Aspirin (ASPIRIN) 81 Mg Tab.chew, 81 MG PO heart for allergies, TAB.CHEW 11/14/18 Hydrochlorothiazide (HYDROCHLOROTHIAZIDE CAPSULE ) 12.5 Mg Capsule, 25 MG PO DAILY for DIURETIC, CAP 0 Refills 11/14/18 Meloxicam (MELOXICAM) 15 Mg Tablet, 15 MG PO DAILY for pain, TAB 11/14/18 Carvedilol (CARVEDILOL ) 6.25 Mg Tablet, 6.25 MG PO BIDWMEALS for CARDIAC, TAB 11/14/18 Discontinued Reported Medications Lisinopril (LISINOPRIL) 5 Mg Tablet, 5 MG PO DAILY for FOR HYPERTENSION, #30 TAB 0 Refills 11/14/18 SUDHIR MCKEON MD Sep 30, 2020 10:25
[2020-09-30] MEDS ORDERED: DARBEPOETIN ALFA 100 MCG/0.5 ML DISP.SYRIN. SQ ONE (10:30)
[2020-09-30 11:25] VITALS: BP 112/75
[2020-09-30] MEDS: SUCRALFATE 1 GM TABLET. PO SCH ×2 (12:05→16:59)
[2020-09-30 15:23] VITALS: BP 126/61
[2020-09-30] MEDS: ONDANSETRON PF 4 MG/2 ML VIAL. IV PRN (16:58)
[2020-09-30] MEDS: HYDROmorphone 2 MG/ML VIAL IVP PRN (16:59)
[2020-09-30] MEDS: IV NORMAL SALINE 1000ML BAG 1,000 ML IV SCH (18:57)
[2020-09-30 19:20] VITALS: BP 108/58
[2020-09-30 23:15] VITALS: BP 137/57
[2020-10-01 04:06] VITALS: BP 132/50
[2020-10-01] MEDS: ONDANSETRON PF 4 MG/2 ML VIAL. IV PRN ×3 (04:37→17:11)
[2020-10-01] MEDS: SUCRALFATE 1 GM TABLET. PO SCH ×2 (05:58→17:03)
[2020-10-01] MEDS: HYDROcodone/APAP 10/325 1 TAB TABLET PO PRN ×3 (06:01→22:02)
[2020-10-01 07:00] VITALS: BP 130/61
[2020-10-01] MEDS: ASPIRIN CHEWABLE 81 MG TABLET. PO SCH (07:00)
[2020-10-01 07:08] LABS: HEMATOCRIT 24.1 % (36.0-47.0); RED BLOOD COUNT 2.58 x10^6/uL (3.50-5.40); RED CELL DISTRIBUTION WIDTH 13.6 % (11.5-14.5); WHITE BLOOD COUNT 17.4 x10^3/uL (4.0-11.0)
[2020-10-01 07:19] LABS: CALCIUM 8.4 mg/dL (8.5-10.1); CREATININE 1.3 mg/dL (0.6-1.0); GFR 41.9; POTASSIUM 3.9 mmol/L (3.5-5.1)
[2020-10-01] MEDS ORDERED: PANTOPRAZOLE 40 MG TABLET.DR. PO SCH (07:30)
[2020-10-01] MEDS: LORazepam 0.5 MG TABLET PO PRN ×2 (09:27→17:04)
[2020-10-01] MEDS: IV NORMAL SALINE 1000ML BAG 1,000 ML IV SCH (09:27)
[2020-10-01] MEDS: hydroCHLOROthiazide 12.5 MG CAPSULE PO SCH (09:28)
[2020-10-01] MEDS: CARVEDILOL 6.25 MG TABLET. PO SCH ×2 (09:29→17:03)
[2020-10-01] MEDS: HYDROcodone/APAP 7.5/325MG 1 TAB TABLET PO PRN (09:31)
[2020-10-01 11:00] VITALS: BP 133/70
--- NOTE | 2020-10-01 11:08 | PDOC ---
G I PROGRESS NOTE Subjective Nausea and vomiting today. No blood in emesis. Still with dark stools. Denies much pain. Physical Exam Lungs clear. RRR Abdomen soft, not tender nor distended. Review of Relevant I have reviewed the following items dilan (where applicable) has been applied. Labs Laboratory Tests Test 09/30/20 06:20 10/01/20 06:00 White Blood Count 15.9 x10^3/uL (4.0-11.0) 17.4 x10^3/uL (4.0-11.0) Red Blood Count 3.10 x10^6/uL (3.50-5.40) 2.58 x10^6/uL (3.50-5.40) Hemoglobin 9.5 g/dL (12.0-15.5) 8.0 g/dL (12.0-15.5) Hematocrit 28.8 % (36.0-47.0) 24.1 % (36.0-47.0) Mean Corpuscular Volume 93 fL (79-100) 93 fL (79-100) Mean Corpuscular Hemoglobin 31 pg (25-35) 31 pg (25-35) Mean Corpuscular Hemoglobin Concent 33 g/dL (31-37) 33 g/dL (31-37) Red Cell Distribution Width 14.0 % (11.5-14.5) 13.6 % (11.5-14.5) Platelet Count 364 x10^3/uL (140-400) 300 x10^3/uL (140-400) Neutrophils (%) (Auto) 82 % (31-73) Lymphocytes (%) (Auto) 9 % (24-48) Monocytes (%) (Auto) 9 % (0-9) Eosinophils (%) (Auto) 0 % (0-3) Basophils (%) (Auto) 0 % (0-3) Neutrophils # (Auto) 13.1 x10^3/uL (1.8-7.7) Lymphocytes # (Auto) 1.4 x10^3/uL (1.0-4.8) Monocytes # (Auto) 1.4 x10^3/uL (0.0-1.1) Eosinophils # (Auto) 0.0 x10^3/uL (0.0-0.7) Basophils # (Auto) 0.0 x10^3/uL (0.0-0.2) Sodium Level 141 mmol/L (136-145) 141 mmol/L (136-145) Potassium Level 4.8 mmol/L (3.5-5.1) 3.9 mmol/L (3.5-5.1) Chloride Level 108 mmol/L (98-107) 107 mmol/L (98-107) Carbon Dioxide Level 25 mmol/L (21-32) 29 mmol/L (21-32) Anion Gap 8 (6-14) 5 (6-14) Blood Urea Nitrogen 77 mg/dL (7-20) 60 mg/dL (7-20) Creatinine 1.4 mg/dL (0.6-1.0) 1.3 mg/dL (0.6-1.0) Estimated GFR (Cockcroft-Gault) 38.5 41.9 BUN/Creatinine Ratio 55 (6-20) Glucose Level 138 mg/dL (70-99) 116 mg/dL (70-99) Calcium Level 8.8 mg/dL (8.5-10.1) 8.4 mg/dL (8.5-10.1) Total Bilirubin 0.4 mg/dL (0.2-1.0) Aspartate Amino Transf (AST/SGOT) 17 U/L (15-37) Alanine Aminotransferase (ALT/SGPT) 38 U/L (14-59) Alkaline Phosphatase 57 U/L (46-116) Total Protein 6.0 g/dL (6.4-8.2) Albumin 3.0 g/dL (3.4-5.0) Albumin/Globulin Ratio 1.0 (1.0-1.7) Laboratory Tests Test 10/01/20 06:00 White Blood Count 17.4 x10^3/uL (4.0-11.0) Red Blood Count 2.58 x10^6/uL (3.50-5.40) Hemoglobin 8.0 g/dL (12.0-15.5) Hematocrit 24.1 % (36.0-47.0) Mean Corpuscular Volume 93 fL (79-100) Mean Corpuscular Hemoglobin 31 pg (25-35) Mean Corpuscular Hemoglobin Concent 33 g/dL (31-37) Red Cell Distribution Width 13.6 % (11.5-14.5) Platelet Count 300 x10^3/uL (140-400) Sodium Level 141 mmol/L (136-145) Potassium Level 3.9 mmol/L (3.5-5.1) Chloride Level 107 mmol/L (98-107) Carbon Dioxide Level 29 mmol/L (21-32) Anion Gap 5 (6-14) Blood Urea Nitrogen 60 mg/dL (7-20) Creatinine 1.3 mg/dL (0.6-1.0) Estimated GFR (Cockcroft-Gault) 41.9 Glucose Level 116 mg/dL (70-99) Calcium Level 8.4 mg/dL (8.5-10.1) Drop in hemoglobin noted; still equilibrating? Vitals/I & O Vital Sign - Last 24 Hours 09/30/20 09/30/20 09/30/20 09/30/20 11:25 12:05 12:35 15:23 Temp 97.8 98.1 97.8 98.1 Pulse 86 83 Resp 20 18 B/P (MAP) 112/75 (87) 126/61 (82) Pulse Ox 97 93 O2 Delivery Room Air Room Air Room Air Room Air 09/30/20 09/30/20 09/30/20 09/30/20 16:59 17:01 17:29 19:20 Temp 97.9 97.9 Pulse 83 83 Resp 16 B/P (MAP) 126/61 108/58 (75) Pulse Ox 98 O2 Delivery Room Air Room Air Room Air 09/30/20 09/30/20 09/30/20 10/01/20 20:00 23:15 23:26 03:00 Temp 97.9 97.9 Pulse 77 Resp 17 B/P (MAP) 137/57 (83) Pulse Ox 98 O2 Delivery Room Air Room Air Room Air Room Air 10/01/20 10/01/20 10/01/20 10/01/20 04:06 06:01 06:31 07:00 Temp 98.0 98.5 98.0 98.5 Pulse 70 73 Resp 18 16 B/P (MAP) 132/50 (77) 130/61 (84) Pulse Ox 98 98 99 O2 Delivery Room Air Room Air Room Air Room Air 10/01/20 10/01/20 10/01/20 09:29 09:31 10:01 Pulse 70 B/P (MAP) 132/50 Pulse Ox 98 98 O2 Delivery Room Air Room Air Intake and Output 09/30/20 09/30/20 10/01/20 15:00 23:00 07:00 Intake Total 600 ml 720 ml 150 ml Output Total 300 ml 1000 ml Balance 600 ml 420 ml -850 ml Problem List Problems Medical Problems: (1) Intractable pain Status: Acute (2) Knee pain, left Status: Acute Assessment iwth bleeding; no evidence for recurrent bleed. Nausea and vomiting, non-specific. Plan of Care Note Continue PPI and sucralfate. Down to clears and observe. Justicifation of Admission Dx: Justifications for Admission: Justification of Admission Dx: Yes JOSE ALBERTO LARSON MD Oct 01, 2020 11:08
--- NOTE | 2020-10-01 11:22 | PDOC ---
GENERAL General: Patient examined chart reviewed today's hospital day 9 for this patient with intractable left lower extremity pain found to have end-stage left knee ar thritis and a left tibial plateau stress fracture. Patient has super morbid obesity with a BMI greater than 60. She was getting ready for discharge after orthopedic consultation when she developed significant anemia and upper abdominal pain. She was evaluated by gastroenterology and taken for upper endoscopy yesterday where a large gastric ulcer was found that had bled acutely during the stay here. Patient had been taking meloxicam at home for knee arthritis. [facility] rehab was ready to take her today but unfortunately she continues to be quite nauseated. I spoke with nursing and gastroenterology and their assistance is appreciated. It would be best to keep the patient another night given the drop in hemoglobin from 10 two days ago to 8.0 this morning. Patient has not noticed any blood in her vomitus or stool. At the moment her nausea is improved. We will monitor her on a clear liquid diet and reassess in the morning. She can discharge as early as tomorrow back to [facility] as long as hemoglobin is stable. She will transfuse to keep hemoglobin up over 7. Continue current management otherwise. Time spent today is 30 minutes with greater than 50% in counseling and coordination of care most of which in discussion with patient and team. Problems: (1) Knee pain, left (2) Severe obesity (BMI >= 40) (3) Tibial plateau fracture, left (4) Gastric ulcer VITAL SIGNS Vital Signs/I&O: Vital Signs Date Time Temp Pulse Resp B/P (MAP) Pulse Ox O2 Delivery O2 Flow Rate FiO2 10/01/20 10:01 98 Room Air 10/01/20 09:29 70 132/50 10/01/20 07:00 98.5 16 98.5 I & O 09/30/20 09/30/20 10/01/20 15:00 23:00 07:00 Intake Total 600 ml 720 ml 150 ml Output Total 300 ml 1000 ml Balance 600 ml 420 ml -850 ml In general the patient is pleasant alert and oriented x3 no acute distress HEENT exam is unremarkable Chest is clear to auscultation Heart S1-S2 normal regular rate and rhythm no murmurs or gallops are noted Abdomen soft nontender nondistended no masses organomegaly noted Extremity exam is unremarkable for acute abnormality. Left lower extremity is in a splint ALLERGIES Allergies: Allergies Coded Allergies Type Severity Reaction Last Updated Verified No Known Drug Allergies 09/29/20 No MEDS Medications: Current Medications Medications (Trade) Dose Ordered Sig/Christopher Start Time Stop Time Status Last Admin Dose Admin Acetaminophen (Tylenol) 650 mg PRN Q4HRS PRN 09/24/20 13:30 Acetaminophen/ Hydrocodone Bitart (Lortab 10/325) 1 tab PRN Q6HRS PRN 09/24/20 11:45 10/01/20 06:01 Acetaminophen/ Hydrocodone Bitart (Lortab 7.5/325) 1 tab PRN Q6HRS PRN 09/27/20 15:30 10/01/20 09:31 Al Hydroxide/Mg Hydroxide (Mylanta Plus Xs) 30 ml PRN DAILY PRN 09/24/20 13:30 09/30/20 20:24 Albuterol Sulfate (Ventolin Neb Soln) 2.5 mg PRN Q4HRS PRN 09/24/20 13:30 Aspirin (Aspirin Chewable) 81 mg 1X ONCE 09/28/20 12:00 09/28/20 12:01 DC 09/28/20 12:21 Carvedilol (Coreg) 6.25 mg BIDWMEALS 09/24/20 12:00 10/01/20 09:29 Clonidine HCl (Catapres) 0.1 mg PRN Q6HRS PRN 09/24/20 13:30 09/27/20 03:31 Darbepoetin Orestes (ARANESP for NON-DIALYSIS PTS) 100 mcg 1X ONCE 09/30/20 10:30 09/30/20 10:38 DC 09/30/20 12:06 Diphenhydramine HCl (Benadryl) 25 mg PRN Q4HRS PRN 09/24/20 13:30 Docusate Sodium (Colace) 100 mg PRN BID PRN 09/24/20 13:30 09/28/20 20:43 Enoxaparin Sodium (Lovenox 60mg Syringe) 60 mg Q12HR 09/24/20 21:00 09/29/20 14:39 DC 09/28/20 20:44 Fentanyl Citrate (Fentanyl 2ml Vial) 50 mcg PRN Q2HRS PRN 09/23/20 22:15 09/23/20 23:55 DC Guaifenesin (Robitussin) 200 mg PRN Q4HRS PRN 09/24/20 13:30 Hydrochlorothiazide (Microzide) 25 mg DAILY 09/24/20 12:00 10/01/20 09:28 Hydromorphone HCl (Dilaudid) 0.5 mg PRN Q4HRS PRN 09/24/20 00:00 09/30/20 16:59 Lidocaine HCl (Lidocaine Pf 2% Vial) 5 ml STK-MED ONCE 09/29/20 16:56 09/29/20 16:56 DC Lisinopril (Prinivil) 5 mg DAILY 09/24/20 12:00 09/24/20 13:40 DC 09/24/20 12:53 Lorazepam (Ativan) 0.5 mg PRN Q4HRS PRN 09/24/20 13:30 10/01/20 09:27 Meloxicam (Mobic) 15 mg DAILY 09/24/20 12:00 09/25/20 17:52 DC 09/25/20 08:53 Methylprednisolone Sodium Succinate (SOLU-Medrol 40MG VIAL) 40 mg Q8HRS 09/24/20 08:30 09/30/20 16:06 DC 09/30/20 05:57 Ondansetron HCl (Zofran) 4 mg PRN Q4HRS PRN 09/24/20 13:30 10/01/20 09:37 Pantoprazole Sodium (PROTONIX VIAL for IV PUSH) 40 mg DAILYAC 09/30/20 07:30 09/30/20 09:43 DC 09/30/20 05:57 Pantoprazole Sodium (Protonix) 40 mg DAILYAC 10/01/20 07:30 10/01/20 05:58 Propofol (Diprivan) 200 mg STK-MED ONCE 09/29/20 16:56 09/29/20 16:56 DC Ringer's Solution 1,000 ml @ 75 mls/hr [id number] 09/29/20 16:00 09/30/20 08:41 DC Sodium Monofluorophosphate (Fleet Adult) 133 ml PRN DAILY PRN 09/24/20 13:30 Sodium Chloride 1,000 ml @ 75 mls/hr [id number] 09/29/20 11:00 10/01/20 09:27 Sodium Chloride (Normal Saline Flush) 3 ml QSHIFT PRN 09/24/20 13:30 Sucralfate (Carafate) 1 gm BIDAC 09/30/20 11:30 10/01/20 05:58 Zolpidem Tartrate (Ambien) 5 mg PRN QHS PRN 09/24/20 13:30 09/28/20 20:44 Current Medications Medications (Trade) Dose Ordered Sig/Christopher Route PRN Reason Start Time Stop Time Status Last Admin Dose Admin Pantoprazole Sodium (Protonix) 40 mg DAILYAC PO 10/01/20 07:30 10/01/20 05:58 Sucralfate (Carafate) 1 gm BIDAC PO 09/30/20 11:30 10/01/20 05:58 LAB Lab: Laboratory Tests Test 10/01/20 06:00 White Blood Count 17.4 x10^3/uL (4.0-11.0) H Red Blood Count 2.58 x10^6/uL (3.50-5.40) L Hemoglobin 8.0 g/dL (12.0-15.5) L Hematocrit 24.1 % (36.0-47.0) L Mean Corpuscular Volume 93 fL (79-100) Mean Corpuscular Hemoglobin 31 pg (25-35) Mean Corpuscular Hemoglobin Concent 33 g/dL (31-37) Red Cell Distribution Width 13.6 % (11.5-14.5) Platelet Count 300 x10^3/uL (140-400) Sodium Level 141 mmol/L (136-145) Potassium Level 3.9 mmol/L (3.5-5.1) Chloride Level 107 mmol/L (98-107) Carbon Dioxide Level 29 mmol/L (21-32) Anion Gap 5 (6-14) L Blood Urea Nitrogen 60 mg/dL (7-20) H Creatinine 1.3 mg/dL (0.6-1.0) H Estimated GFR (Cockcroft-Gault) 41.9 Glucose Level 116 mg/dL (70-99) H Calcium Level 8.4 mg/dL (8.5-10.1) L Laboratory Tests 10/01/20 06:00 Laboratory Tests 10/01/20 06:00 ASSESSMENT & PLAN A&P Plan as noted above This note was created using [employer] and may have omissions and/or errors due to the nature of real-time voice head of human resources. Justifications for Admission General Conditions Other justification for admit: gait instability Other Justification Problem Qualifiers (1) Knee pain, left: Chronicity: chronic Qualified Codes: M25.562 - Pain in left knee; G89.29 - Other chronic pain CRISTAL SWANSON MD Oct 01, 2020 11:22
--- NOTE | 2020-10-01 12:40 | PDOC ---
Renal-Progress Notes Subjective Notes Notes NO NEW COMPLAINTS History of Present Illness Hx of present illness STABLE Vitals Vitals Vital Signs Date Time Temp Pulse Resp B/P (MAP) Pulse Ox O2 Delivery O2 Flow Rate FiO2 10/01/20 11:00 97.8 79 16 133/70 (91) 98 Room Air 97.8 Weight Weight [ ] I.O. Intake and Output Intake and Output 10/01/20 07:00 Intake Total 1470 ml Output Total 1300 ml Balance 170 ml Intake Oral 1470 ml Output Urine Total 1300 ml # Voids 3 # Bowel Movements 1 Labs Labs Laboratory Tests Test 10/01/20 06:00 White Blood Count 17.4 x10^3/uL (4.0-11.0) Red Blood Count 2.58 x10^6/uL (3.50-5.40) Hemoglobin 8.0 g/dL (12.0-15.5) Hematocrit 24.1 % (36.0-47.0) Mean Corpuscular Volume 93 fL (79-100) Mean Corpuscular Hemoglobin 31 pg (25-35) Mean Corpuscular Hemoglobin Concent 33 g/dL (31-37) Red Cell Distribution Width 13.6 % (11.5-14.5) Platelet Count 300 x10^3/uL (140-400) Sodium Level 141 mmol/L (136-145) Potassium Level 3.9 mmol/L (3.5-5.1) Chloride Level 107 mmol/L (98-107) Carbon Dioxide Level 29 mmol/L (21-32) Anion Gap 5 (6-14) Blood Urea Nitrogen 60 mg/dL (7-20) Creatinine 1.3 mg/dL (0.6-1.0) Estimated GFR (Cockcroft-Gault) 41.9 Glucose Level 116 mg/dL (70-99) Calcium Level 8.4 mg/dL (8.5-10.1) Review of Systems Constitutional: yes: alert, oriented Ears/Nose/Throat: Yes: no symptom reported Eyes: Yes: no symptom reported Pulmonary: Yes no symptom reported Cardiovascular: Yes no symptom reported Gastrointestional: Yes: no symptom reported Genitourinary: Yes: no symptom reported Musculoskeletal: Yes: joint pain Skin: Yes no symptom reported Psychiatric/Neurological: Yes: no symptom reported Endocrine: Yes: no symptom reported Physical Exam General Appearance: no apparent distress Skin: warm Respiratory: bilateral CTA, decreased breath sounds Heart: S1S2 Abdomen: soft, bowel sounds present Genitourinary: bladder flat Extremities: pulses present, edema Assessment Assessment IMP MAURICIO-RESOLVED PROB CKD STAGE 3 WITH CR OF 1.3 LEFT KNEE PAIN-SEVERE OA OBESITY LE EDEMA HTN PLAN STOP IVF'S CONT HCTZ LABS IN AM WILL FOLLOW GHULAM WYNN MD Oct 01, 2020 12:40
[2020-10-01 15:00] VITALS: BP 134/67
[2020-10-01 19:19] VITALS: BP 116/56
[2020-10-01] MEDS: PANTOPRAZOLE 40 MG TABLET.DR. PO SCH (22:03)
[2020-10-01 22:25] VITALS: BP 110/53
[2020-10-02] VITALS (11 sets, daily range): BP systolic 104–137; BP diastolic 41–76
[2020-10-02 04:17] LABS: HEMATOCRIT 21.2 % (36.0-47.0); RED BLOOD COUNT 2.26 x10^6/uL (3.50-5.40); RED CELL DISTRIBUTION WIDTH 13.9 % (11.5-14.5); WHITE BLOOD COUNT 12.7 x10^3/uL (4.0-11.0)
[2020-10-02 04:29] LABS: CALCIUM 8.2 mg/dL (8.5-10.1); CREATININE 1.2 mg/dL (0.6-1.0); POTASSIUM 3.4 mmol/L (3.5-5.1)
--- NOTE | 2020-10-02 05:03 | NUR ---
pt hemoglobin 7.0 will notify md, awaiting return called. pmrn
[2020-10-02] MEDS: SUCRALFATE 1 GM TABLET. PO SCH ×2 (06:34→17:21)
[2020-10-02] MEDS: PANTOPRAZOLE 40 MG TABLET.DR. PO SCH ×2 (06:35→22:09)
[2020-10-02] MEDS: ONDANSETRON PF 4 MG/2 ML VIAL. IV PRN (06:36)
[2020-10-02] MEDS: ASPIRIN CHEWABLE 81 MG TABLET. PO SCH (07:00)
[2020-10-02] MEDS: LORazepam 0.5 MG TABLET PO PRN ×3 (09:08→17:26)
[2020-10-02] MEDS: HYDROcodone/APAP 10/325 1 TAB TABLET PO PRN ×3 (09:08→22:11)
[2020-10-02] MEDS: hydroCHLOROthiazide 12.5 MG CAPSULE PO SCH (09:09)
[2020-10-02] MEDS: CARVEDILOL 6.25 MG TABLET. PO SCH ×2 (09:09→17:20)
--- NOTE | 2020-10-02 09:56 | PDOC ---
Renal-Progress Notes Subjective Notes Notes NO NEW COMPLAINTS History of Present Illness Hx of present illness STABLE Vitals Vitals Vital Signs Date Time Temp Pulse Resp B/P (MAP) Pulse Ox O2 Delivery O2 Flow Rate FiO2 10/02/20 09:09 73 119/59 10/02/20 09:08 99 Room Air 10/02/20 07:00 98.6 16 98.6 Weight Weight [ ] I.O. Intake and Output Intake and Output 10/02/20 07:00 Intake Total 900 ml Output Total 1700 ml Balance -800 ml Intake Oral 900 ml Output Urine Total 1700 ml Labs Labs Laboratory Tests Test 10/02/20 04:00 White Blood Count 12.7 x10^3/uL (4.0-11.0) Red Blood Count 2.26 x10^6/uL (3.50-5.40) Hemoglobin 7.0 g/dL (12.0-15.5) Hematocrit 21.2 % (36.0-47.0) Mean Corpuscular Volume 94 fL (79-100) Mean Corpuscular Hemoglobin 31 pg (25-35) Mean Corpuscular Hemoglobin Concent 33 g/dL (31-37) Red Cell Distribution Width 13.9 % (11.5-14.5) Platelet Count 239 x10^3/uL (140-400) Sodium Level 141 mmol/L (136-145) Potassium Level 3.4 mmol/L (3.5-5.1) Chloride Level 107 mmol/L (98-107) Carbon Dioxide Level 28 mmol/L (21-32) Anion Gap 6 (6-14) Blood Urea Nitrogen 40 mg/dL (7-20) Creatinine 1.2 mg/dL (0.6-1.0) Estimated GFR (Cockcroft-Gault) 46.0 Glucose Level 123 mg/dL (70-99) Calcium Level 8.2 mg/dL (8.5-10.1) Review of Systems Constitutional: yes: alert, oriented Ears/Nose/Throat: Yes: no symptom reported Eyes: Yes: no symptom reported Pulmonary: Yes no symptom reported Cardiovascular: Yes no symptom reported Gastrointestional: Yes: no symptom reported Genitourinary: Yes: no symptom reported Musculoskeletal: Yes: joint pain Skin: Yes no symptom reported Psychiatric/Neurological: Yes: no symptom reported Endocrine: Yes: no symptom reported Physical Exam General Appearance: no apparent distress Skin: warm Respiratory: bilateral CTA, decreased breath sounds Heart: S1S2 Abdomen: soft, bowel sounds present Genitourinary: bladder flat Extremities: pulses present, edema Assessment Assessment IMP MAURICIO-RESOLVED PROB CKD STAGE 3 WITH CR OF 1.3 LEFT KNEE PAIN-SEVERE OA HYPOKALEMIA OBESITY LE EDEMA HTN PLAN STOPPED IVF'S CONT HCTZ REPLACE K LABS IN AM WILL FOLLOW GHULAM WYNN MD Oct 02, 2020 09:56
--- NOTE | 2020-10-02 10:45 | PDOC ---
G I PROGRESS NOTE Subjective Some nausea, no further emesis. Tolerating clears. Objective Able to view pix of ulcer; should not be an obstructive issue. Physical Exam Lungs clear. RRR Abdomen soft, not tender nor distended. Review of Relevant I have reviewed the following items dilan (where applicable) has been applied. Labs Laboratory Tests Test 10/01/20 06:00 10/02/20 04:00 White Blood Count 17.4 x10^3/uL (4.0-11.0) 12.7 x10^3/uL (4.0-11.0) Red Blood Count 2.58 x10^6/uL (3.50-5.40) 2.26 x10^6/uL (3.50-5.40) Hemoglobin 8.0 g/dL (12.0-15.5) 7.0 g/dL (12.0-15.5) Hematocrit 24.1 % (36.0-47.0) 21.2 % (36.0-47.0) Mean Corpuscular Volume 93 fL (79-100) 94 fL (79-100) Mean Corpuscular Hemoglobin 31 pg (25-35) 31 pg (25-35) Mean Corpuscular Hemoglobin Concent 33 g/dL (31-37) 33 g/dL (31-37) Red Cell Distribution Width 13.6 % (11.5-14.5) 13.9 % (11.5-14.5) Platelet Count 300 x10^3/uL (140-400) 239 x10^3/uL (140-400) Sodium Level 141 mmol/L (136-145) 141 mmol/L (136-145) Potassium Level 3.9 mmol/L (3.5-5.1) 3.4 mmol/L (3.5-5.1) Chloride Level 107 mmol/L (98-107) 107 mmol/L (98-107) Carbon Dioxide Level 29 mmol/L (21-32) 28 mmol/L (21-32) Anion Gap 5 (6-14) 6 (6-14) Blood Urea Nitrogen 60 mg/dL (7-20) 40 mg/dL (7-20) Creatinine 1.3 mg/dL (0.6-1.0) 1.2 mg/dL (0.6-1.0) Estimated GFR (Cockcroft-Gault) 41.9 46.0 Glucose Level 116 mg/dL (70-99) 123 mg/dL (70-99) Calcium Level 8.4 mg/dL (8.5-10.1) 8.2 mg/dL (8.5-10.1) Laboratory Tests Test 10/02/20 04:00 White Blood Count 12.7 x10^3/uL (4.0-11.0) Red Blood Count 2.26 x10^6/uL (3.50-5.40) Hemoglobin 7.0 g/dL (12.0-15.5) Hematocrit 21.2 % (36.0-47.0) Mean Corpuscular Volume 94 fL (79-100) Mean Corpuscular Hemoglobin 31 pg (25-35) Mean Corpuscular Hemoglobin Concent 33 g/dL (31-37) Red Cell Distribution Width 13.9 % (11.5-14.5) Platelet Count 239 x10^3/uL (140-400) Sodium Level 141 mmol/L (136-145) Potassium Level 3.4 mmol/L (3.5-5.1) Chloride Level 107 mmol/L (98-107) Carbon Dioxide Level 28 mmol/L (21-32) Anion Gap 6 (6-14) Blood Urea Nitrogen 40 mg/dL (7-20) Creatinine 1.2 mg/dL (0.6-1.0) Estimated GFR (Cockcroft-Gault) 46.0 Glucose Level 123 mg/dL (70-99) Calcium Level 8.2 mg/dL (8.5-10.1) Some drop in hemoglobin; think largely dilutional. Vitals/I & O Vital Sign - Last 24 Hours 10/01/20 10/01/20 10/01/20 10/01/20 11:00 15:00 17:03 17:05 Temp 97.8 99.0 97.8 99.0 Pulse 79 79 79 Resp 16 16 B/P (MAP) 133/70 (91) 134/67 (89) 134/67 Pulse Ox 98 99 99 O2 Delivery Room Air Room Air Room Air 10/01/20 10/01/20 10/01/20 10/01/20 17:35 19:19 20:45 22:02 Temp 97.7 97.7 Pulse 60 Resp 16 B/P (MAP) 116/56 (76) Pulse Ox 99 99 O2 Delivery Room Air Room Air Room Air Room Air 10/01/20 10/02/20 10/02/20 10/02/20 22:25 02:35 07:00 09:08 Temp 98.4 98.2 98.6 98.4 98.2 98.6 Pulse 76 74 73 Resp 18 16 16 B/P (MAP) 110/53 (72) 128/62 (84) 119/59 (79) Pulse Ox 98 98 99 99 O2 Delivery Room Air Room Air Room Air Room Air 10/02/20 10/02/20 09:09 09:38 Pulse 73 B/P (MAP) 119/59 Pulse Ox 99 O2 Delivery Room Air Intake and Output 10/01/20 10/01/20 10/02/20 15:00 23:00 07:00 Intake Total 600 ml 100 ml 200 ml Output Total 300 ml 850 ml 550 ml Balance 300 ml -750 ml -350 ml Problem List Problems Medical Problems: (1) Intractable pain Status: Acute (2) Knee pain, left Status: Acute Assessment with bleeding, s/p endotherapy w/o further bleeding. N, V. Better. Plan of Care Note Continue PPI, sucralfate. Advance diet some? Will defer to you. Justicifation of Admission Dx: Justifications for Admission: Justification of Admission Dx: Yes JOSE ALBERTO LARSON MD Oct 02, 2020 10:45
[2020-10-02] MEDS ORDERED: POTASSIUM CHLORIDE 20 MEQ TABLET.ER. PO ONE (11:00)
[2020-10-02] MEDS: HYDROcodone/APAP 7.5/325MG 1 TAB TABLET PO PRN (12:21)
--- NOTE | 2020-10-02 13:28 | PDOC ---
GENERAL General: Patient examined chart reviewed seen with nursing at bedside. She is feeling a lot better on the clear liquid diet and has not had any more emesis overnight. She intermittently gets nauseated but denies any upper abdominal pain. She has not noticed any bleeding. Hemoglobin this morning is 7 and she is currently getting a blood transfusion. Likely this is equilibration from the blood loss at the original bleeding event. If hemoglobin is stable tomorrow can consider discharge to rehab tomorrow perhaps the day after depending on her progress. We will advance her diet to clear liquids tonight. Problems: (1) Tibial plateau fracture, left (2) Severe obesity (BMI >= 40) (3) Gastric ulcer (4) Acute blood loss anemia VITAL SIGNS Vital Signs/I&O: Vital Signs Date Time Temp Pulse Resp B/P (MAP) Pulse Ox O2 Delivery O2 Flow Rate FiO2 10/02/20 12:29 98.3 67 18 116/41 98.3 10/02/20 12:21 97 Room Air I & O 10/01/20 10/01/20 10/02/20 15:00 23:00 07:00 Intake Total 600 ml 100 ml 200 ml Output Total 300 ml 850 ml 550 ml Balance 300 ml -750 ml -350 ml In general the patient is pleasant alert and oriented x3 no acute distress HEENT exam is unremarkable Chest is clear to auscultation Heart S1-S2 normal regular rate and rhythm no murmurs or gallops are noted Abdomen soft nontender nondistended no masses organomegaly noted Extremity exam is unremarkable for acute abnormality ALLERGIES Allergies: Allergies Coded Allergies Type Severity Reaction Last Updated Verified No Known Drug Allergies 09/29/20 No MEDS Medications: Current Medications Medications (Trade) Dose Ordered Sig/Christopher Start Time Stop Time Status Last Admin Dose Admin Acetaminophen (Tylenol) 650 mg PRN Q4HRS PRN 09/24/20 13:30 Acetaminophen/ Hydrocodone Bitart (Lortab 10/325) 1 tab PRN Q6HRS PRN 09/24/20 11:45 10/02/20 09:08 Acetaminophen/ Hydrocodone Bitart (Lortab 7.5/325) 1 tab PRN Q6HRS PRN 09/27/20 15:30 10/02/20 12:21 Al Hydroxide/Mg Hydroxide (Mylanta Plus Xs) 30 ml PRN DAILY PRN 09/24/20 13:30 09/30/20 20:24 Albuterol Sulfate (Ventolin Neb Soln) 2.5 mg PRN Q4HRS PRN 09/24/20 13:30 Aspirin (Aspirin Chewable) 81 mg 1X ONCE 09/28/20 12:00 09/28/20 12:01 DC 09/28/20 12:21 Carvedilol (Coreg) 6.25 mg BIDWMEALS 09/24/20 12:00 10/02/20 09:09 Clonidine HCl (Catapres) 0.1 mg PRN Q6HRS PRN 09/24/20 13:30 09/27/20 03:31 Darbepoetin Orestes (ARANESP for NON-DIALYSIS PTS) 100 mcg 1X ONCE 09/30/20 10:30 09/30/20 10:38 DC 09/30/20 12:06 Diphenhydramine HCl (Benadryl) 25 mg PRN Q4HRS PRN 09/24/20 13:30 Docusate Sodium (Colace) 100 mg PRN BID PRN 09/24/20 13:30 09/28/20 20:43 Enoxaparin Sodium (Lovenox 60mg Syringe) 60 mg Q12HR 09/24/20 21:00 09/29/20 14:39 DC 09/28/20 20:44 Fentanyl Citrate (Fentanyl 2ml Vial) 50 mcg PRN Q2HRS PRN 09/23/20 22:15 09/23/20 23:55 DC Guaifenesin (Robitussin) 200 mg PRN Q4HRS PRN 09/24/20 13:30 Hydrochlorothiazide (Microzide) 25 mg DAILY 09/24/20 12:00 10/02/20 09:09 Hydromorphone HCl (Dilaudid) 0.5 mg PRN Q4HRS PRN 09/24/20 00:00 09/30/20 16:59 Lidocaine HCl (Lidocaine Pf 2% Vial) 5 ml STK-MED ONCE 09/29/20 16:56 09/29/20 16:56 DC Lisinopril (Prinivil) 5 mg DAILY 09/24/20 12:00 09/24/20 13:40 DC 09/24/20 12:53 Lorazepam (Ativan) 0.5 mg PRN Q4HRS PRN 09/24/20 13:30 10/02/20 12:21 Meloxicam (Mobic) 15 mg DAILY 09/24/20 12:00 09/25/20 17:52 DC 09/25/20 08:53 Methylprednisolone Sodium Succinate (SOLU-Medrol 40MG VIAL) 40 mg Q8HRS 09/24/20 08:30 09/30/20 16:06 DC 09/30/20 05:57 Ondansetron HCl (Zofran) 4 mg PRN Q4HRS PRN 09/24/20 13:30 10/02/20 06:36 Pantoprazole Sodium (PROTONIX VIAL for IV PUSH) 40 mg DAILYAC 09/30/20 07:30 09/30/20 09:43 DC 09/30/20 05:57 Pantoprazole Sodium (Protonix) 40 mg BID 10/01/20 21:00 10/02/20 06:35 Potassium Chloride (Klor-Con) 20 meq 1X ONCE 10/02/20 11:00 10/02/20 11:01 DC 10/02/20 12:21 Propofol (Diprivan) 200 mg STK-MED ONCE 09/29/20 16:56 09/29/20 16:56 DC Ringer's Solution 1,000 ml @ 75 mls/hr [id number] 09/29/20 16:00 09/30/20 08:41 DC Sodium Monofluorophosphate (Fleet Adult) 133 ml PRN DAILY PRN 09/24/20 13:30 Sodium Chloride 1,000 ml @ 75 mls/hr [id number] 09/29/20 11:00 10/01/20 12:42 DC 10/01/20 09:27 Sodium Chloride (Normal Saline Flush) 3 ml QSHIFT PRN 09/24/20 13:30 Sucralfate (Carafate) 1 gm BIDAC 09/30/20 11:30 10/02/20 06:34 Zolpidem Tartrate (Ambien) 5 mg PRN QHS PRN 09/24/20 13:30 09/28/20 20:44 Current Medications Medications (Trade) Dose Ordered Sig/Christopher Route PRN Reason Start Time Stop Time Status Last Admin Dose Admin Pantoprazole Sodium (Protonix) 40 mg BID PO 10/01/20 21:00 10/02/20 06:35 Potassium Chloride (Klor-Con) 20 meq 1X ONCE PO 10/02/20 11:00 10/02/20 11:01 DC 10/02/20 12:21 LAB Lab: Laboratory Tests Test 10/02/20 04:00 White Blood Count 12.7 x10^3/uL (4.0-11.0) H Red Blood Count 2.26 x10^6/uL (3.50-5.40) L Hemoglobin 7.0 g/dL (12.0-15.5) *L Hematocrit 21.2 % (36.0-47.0) L Mean Corpuscular Volume 94 fL (79-100) Mean Corpuscular Hemoglobin 31 pg (25-35) Mean Corpuscular Hemoglobin Concent 33 g/dL (31-37) Red Cell Distribution Width 13.9 % (11.5-14.5) Platelet Count 239 x10^3/uL (140-400) Sodium Level 141 mmol/L (136-145) Potassium Level 3.4 mmol/L (3.5-5.1) L Chloride Level 107 mmol/L (98-107) Carbon Dioxide Level 28 mmol/L (21-32) Anion Gap 6 (6-14) Blood Urea Nitrogen 40 mg/dL (7-20) H Creatinine 1.2 mg/dL (0.6-1.0) H Estimated GFR (Cockcroft-Gault) 46.0 Glucose Level 123 mg/dL (70-99) H Calcium Level 8.2 mg/dL (8.5-10.1) L Laboratory Tests 10/02/20 04:00 Laboratory Tests 10/02/20 04:00 ASSESSMENT & PLAN A&P Plan as noted above This note was created using [employer] and may have omissions and/or errors due to the nature of real-time voice rrt. Justifications for Admission General Conditions Other justification for admit: gait instability Other Justification CRISTAL SWANSON MD Oct 02, 2020 13:28
[2020-10-03 03:25] VITALS: BP 121/52
[2020-10-03 06:00] LABS: BASO % 0 % (0-3); EOS # 0.4 x10^3/uL (0.0-0.7); EOS % 4 % (0-3); HEMATOCRIT 22.2 % (36.0-47.0); HEMOGLOBIN 7.6 g/dL (12.0-15.5); LYMPH # 2.3 x10^3/uL (1.0-4.8); LYMPH % 25 % (24-48); MEAN CORPUSCULAR HEMOGLOBIN 32 pg (25-35); MEAN CORPUSCULAR HGB CONC 34 g/dL (31-37); MEAN CORPUSCULAR VOLUME 93 fL (79-100); MONO # 0.9 x10^3/uL (0.0-1.1); MONO % 10 % (0-9); NEUT # 5.6 x10^3/uL (1.8-7.7); NEUT % 60 % (31-73); PLATELET COUNT 256 x10^3/uL (140-400); RED BLOOD COUNT 2.39 x10^6/uL (3.50-5.40); RED CELL DISTRIBUTION WIDTH 14.6 % (11.5-14.5); WHITE BLOOD COUNT 9.2 x10^3/uL (4.0-11.0)
[2020-10-03 06:26] LABS: ALBUMIN 2.7 g/dL (3.4-5.0); ALBUMIN/GLOBULIN RATIO 1.1 (1.0-1.7); CALCIUM 8.5 mg/dL (8.5-10.1); CREATININE 1.1 mg/dL (0.6-1.0); GFR 50.8; MAGNESIUM 2.1 mg/dL (1.8-2.4); TOTAL BILIRUBIN 0.4 mg/dL (0.2-1.0); TOTAL PROTEIN 5.2 g/dL (6.4-8.2)
[2020-10-03 07:00] VITALS: BP 127/53
[2020-10-03] MEDS: ASPIRIN CHEWABLE 81 MG TABLET. PO SCH (08:29)
[2020-10-03] MEDS: SUCRALFATE 1 GM TABLET. PO SCH ×2 (08:29→16:17)
[2020-10-03] MEDS: CARVEDILOL 6.25 MG TABLET. PO SCH ×2 (08:30→16:49)
[2020-10-03] MEDS: hydroCHLOROthiazide 12.5 MG CAPSULE PO SCH (08:30)
[2020-10-03] MEDS: PANTOPRAZOLE 40 MG TABLET.DR. PO SCH (08:30)
[2020-10-03] MEDS: HYDROcodone/APAP 10/325 1 TAB TABLET PO PRN ×2 (08:31→16:47)
--- NOTE | 2020-10-03 09:27 | PDOC ---
DATE OF SERVICE DATE: 10/03/20 TIME: 09:25 SUBJECTIVE ROS C/O water stool, no N/V No Urinary complaints OBJECTIVE Vital Signs Vital Signs Date Time Temp Pulse Resp B/P (MAP) Pulse Ox O2 Delivery O2 Flow Rate FiO2 10/03/20 08:31 Room Air 10/03/20 08:30 71 121/52 10/03/20 07:00 98.6 16 98 98.6 I & 0 Intake and Output 10/03/20 07:00 Intake Total 1440 ml Output Total 2200 ml Balance -760 ml Intake Oral 1380 ml Blood Product IV Normal Saline Flush 60 ml Output Urine Total 2200 ml # Voids 2 # Bowel Movements 3 PHYSICAL EXAM Physical Exam General NAD, Morbidly obese HEEN OM moist Neck Supple Lungs CTA , non labored CV RRR Abd soft , Obese Ext No edema No roblero , No CA or SP tenderness Neuro AXOX3, Grossly no focal deficit DIAGNOSIS/ASSESSMENT Assessment & Plan MAURICIO - Non Oliguric, Resolved Hx of NSAID use per home meds , UA and renal US unremarkable BUN elevated 2/2 GI bleed Supportive care, strict I/O, Avoid nephrotoxins, daily labs, Maintain Hydration Monitor CKD stage 3 B - Cr was 1.4 approx 6 months back GI bleed - Hematemesis on 09/29 s/p EGD gastric antral ulcer s/p apc treatment /biopsies adherent clot . S/P PRBC 10/02 Anemia- 2/2 above defer to primary HyperKalemia - resolved , currently HypoKalemia- mild, Replace as indicated Severe left knee joint osteoarthritis- MRI - Nondisplaced fracture of the diaphysis of the proximal tibia just distal to the infrapatellar tendon attachment. Severe tricompartmental degenerative changes. Small knee joint effusion with small popliteal cyst. Moderate increased T2 signal identified in the soft tissue about the knee joint likely secondary to injury. hx Colon Adenocarcinoma Super Morbid obesity COMMENT/RELEVANT DATA Meds Current Medications Medications (Trade) Dose Ordered Sig/Christopher Start Time Stop Time Status Last Admin Dose Admin Acetaminophen (Tylenol) 650 mg PRN Q4HRS PRN 09/24/20 13:30 Acetaminophen/ Hydrocodone Bitart (Lortab 10/325) 1 tab PRN Q6HRS PRN 09/24/20 11:45 10/03/20 08:31 1 TAB Acetaminophen/ Hydrocodone Bitart (Lortab 7.5/325) 1 tab PRN Q6HRS PRN 09/27/20 15:30 10/02/20 12:21 1 TAB Al Hydroxide/Mg Hydroxide (Mylanta Plus Xs) 30 ml PRN DAILY PRN 09/24/20 13:30 09/30/20 20:24 30 ML Albuterol Sulfate (Ventolin Neb Soln) 2.5 mg PRN Q4HRS PRN 09/24/20 13:30 Aspirin (Aspirin Chewable) 81 mg 1X ONCE 09/28/20 12:00 09/28/20 12:01 DC 09/28/20 12:21 81 MG Carvedilol (Coreg) 6.25 mg BIDWMEALS 09/24/20 12:00 10/03/20 08:30 6.25 MG Clonidine HCl (Catapres) 0.1 mg PRN Q6HRS PRN 09/24/20 13:30 09/27/20 03:31 0.1 MG Darbepoetin Orestes (ARANESP for NON-DIALYSIS PTS) 100 mcg 1X ONCE 09/30/20 10:30 09/30/20 10:38 DC 09/30/20 12:06 100 MCG Diphenhydramine HCl (Benadryl) 25 mg PRN Q4HRS PRN 09/24/20 13:30 Docusate Sodium (Colace) 100 mg PRN BID PRN 09/24/20 13:30 09/28/20 20:43 100 MG Enoxaparin Sodium (Lovenox 60mg Syringe) 60 mg Q12HR 09/24/20 21:00 09/29/20 14:39 DC 09/28/20 20:44 60 MG Fentanyl Citrate (Fentanyl 2ml Vial) 50 mcg PRN Q2HRS PRN 09/23/20 22:15 09/23/20 23:55 DC Guaifenesin (Robitussin) 200 mg PRN Q4HRS PRN 09/24/20 13:30 Hydrochlorothiazide (Microzide) 25 mg DAILY 09/24/20 12:00 10/03/20 08:30 25 MG Hydromorphone HCl (Dilaudid) 0.5 mg PRN Q4HRS PRN 09/24/20 00:00 09/30/20 16:59 0.5 MG Lidocaine HCl (Lidocaine Pf 2% Vial) 5 ml STK-MED ONCE 09/29/20 16:56 09/29/20 16:56 DC Lisinopril (Prinivil) 5 mg DAILY 09/24/20 12:00 09/24/20 13:40 DC 09/24/20 12:53 5 MG Lorazepam (Ativan) 0.5 mg PRN Q4HRS PRN 09/24/20 13:30 10/02/20 17:26 0.5 MG Meloxicam (Mobic) 15 mg DAILY 09/24/20 12:00 09/25/20 17:52 DC 09/25/20 08:53 15 MG Methylprednisolone Sodium Succinate (SOLU-Medrol 40MG VIAL) 40 mg Q8HRS 09/24/20 08:30 09/30/20 16:06 DC 09/30/20 05:57 40 MG Ondansetron HCl (Zofran) 4 mg PRN Q4HRS PRN 09/24/20 13:30 10/02/20 06:36 4 MG Pantoprazole Sodium (PROTONIX VIAL for IV PUSH) 40 mg DAILYAC 09/30/20 07:30 09/30/20 09:43 DC 09/30/20 05:57 40 MG Pantoprazole Sodium (Protonix) 40 mg BID 10/01/20 21:00 10/03/20 08:30 40 MG Potassium Chloride (Klor-Con) 20 meq 1X ONCE 10/02/20 11:00 10/02/20 11:01 DC 10/02/20 12:21 20 MEQ Propofol (Diprivan) 200 mg STK-MED ONCE 09/29/20 16:56 09/29/20 16:56 DC Ringer's Solution 1,000 ml @ 75 mls/hr [id number] 09/29/20 16:00 09/30/20 08:41 DC Sodium Monofluorophosphate (Fleet Adult) 133 ml PRN DAILY PRN 09/24/20 13:30 Sodium Chloride 1,000 ml @ 75 mls/hr [id number] 09/29/20 11:00 10/01/20 12:42 DC 10/01/20 09:27 75 MLS/HR Sodium Chloride (Normal Saline Flush) 3 ml QSHIFT PRN 09/24/20 13:30 Sucralfate (Carafate) 1 gm BIDAC 09/30/20 11:30 10/03/20 08:29 1 GM Zolpidem Tartrate (Ambien) 5 mg PRN QHS PRN 09/24/20 13:30 09/28/20 20:44 5 MG Lab Laboratory Tests Test 10/03/20 05:30 White Blood Count 9.2 x10^3/uL (4.0-11.0) Red Blood Count 2.39 x10^6/uL (3.50-5.40) Hemoglobin 7.6 g/dL (12.0-15.5) Hematocrit 22.2 % (36.0-47.0) Mean Corpuscular Volume 93 fL (79-100) Mean Corpuscular Hemoglobin 32 pg (25-35) Mean Corpuscular Hemoglobin Concent 34 g/dL (31-37) Red Cell Distribution Width 14.6 % (11.5-14.5) Platelet Count 256 x10^3/uL (140-400) Neutrophils (%) (Auto) 60 % (31-73) Lymphocytes (%) (Auto) 25 % (24-48) Monocytes (%) (Auto) 10 % (0-9) Eosinophils (%) (Auto) 4 % (0-3) Basophils (%) (Auto) 0 % (0-3) Neutrophils # (Auto) 5.6 x10^3/uL (1.8-7.7) Lymphocytes # (Auto) 2.3 x10^3/uL (1.0-4.8) Monocytes # (Auto) 0.9 x10^3/uL (0.0-1.1) Eosinophils # (Auto) 0.4 x10^3/uL (0.0-0.7) Basophils # (Auto) 0.0 x10^3/uL (0.0-0.2) Sodium Level 142 mmol/L (136-145) Potassium Level 3.0 mmol/L (3.5-5.1) Chloride Level 107 mmol/L (98-107) Carbon Dioxide Level 30 mmol/L (21-32) Anion Gap 5 (6-14) Blood Urea Nitrogen 23 mg/dL (7-20) Creatinine 1.1 mg/dL (0.6-1.0) Estimated GFR (Cockcroft-Gault) 50.8 BUN/Creatinine Ratio 21 (6-20) Glucose Level 104 mg/dL (70-99) Calcium Level 8.5 mg/dL (8.5-10.1) Magnesium Level 2.1 mg/dL (1.8-2.4) Total Bilirubin 0.4 mg/dL (0.2-1.0) Aspartate Amino Transf (AST/SGOT) 35 U/L (15-37) Alanine Aminotransferase (ALT/SGPT) 86 U/L (14-59) Alkaline Phosphatase 72 U/L (46-116) Total Protein 5.2 g/dL (6.4-8.2) Albumin 2.7 g/dL (3.4-5.0) Albumin/Globulin Ratio 1.1 (1.0-1.7) Results All relevant outside records, renal labs, imaging studies, telemetry/EKG's were reviewed. Justicifation of Admission Dx: Justifications for Admission: Justification of Admission Dx: Yes ASHLEY OLGUIN MD Oct 03, 2020 09:27
[2020-10-03] MEDS: LORazepam 0.5 MG TABLET PO PRN (09:44)
--- NOTE | 2020-10-03 10:53 | PDOC ---
Date of Service: DATE: 10/03/20 TIME: 10:48 Subjective: Subjective: Feels frustrated. Nicole tired of liquid diet, also reports watery stools that just come out without warning. Stools look like "old blood." No n/v today. Hesitant to discharge - concerned w/ stomach issues. Objective: Vital Signs: Vital Signs Date Time Temp Pulse Resp B/P (MAP) Pulse Ox O2 Delivery O2 Flow Rate FiO2 10/03/20 09:01 Room Air 10/03/20 08:30 71 121/52 10/03/20 07:00 98.6 16 98 98.6 Labs: Laboratory Tests Test 10/03/20 05:30 White Blood Count 9.2 x10^3/uL Red Blood Count 2.39 x10^6/uL Hemoglobin 7.6 g/dL Hematocrit 22.2 % Mean Corpuscular Volume 93 fL Mean Corpuscular Hemoglobin 32 pg Mean Corpuscular Hemoglobin Concent 34 g/dL Red Cell Distribution Width 14.6 % Platelet Count 256 x10^3/uL Neutrophils (%) (Auto) 60 % Lymphocytes (%) (Auto) 25 % Monocytes (%) (Auto) 10 % Eosinophils (%) (Auto) 4 % Basophils (%) (Auto) 0 % Neutrophils # (Auto) 5.6 x10^3/uL Lymphocytes # (Auto) 2.3 x10^3/uL Monocytes # (Auto) 0.9 x10^3/uL Eosinophils # (Auto) 0.4 x10^3/uL Basophils # (Auto) 0.0 x10^3/uL Sodium Level 142 mmol/L Potassium Level 3.0 mmol/L Chloride Level 107 mmol/L Carbon Dioxide Level 30 mmol/L Anion Gap 5 Blood Urea Nitrogen 23 mg/dL Creatinine 1.1 mg/dL Estimated GFR (Cockcroft-Gault) 50.8 BUN/Creatinine Ratio 21 Glucose Level 104 mg/dL Calcium Level 8.5 mg/dL Magnesium Level 2.1 mg/dL Total Bilirubin 0.4 mg/dL Aspartate Amino Transf (AST/SGOT) 35 U/L Alanine Aminotransferase (ALT/SGPT) 86 U/L Alkaline Phosphatase 72 U/L Total Protein 5.2 g/dL Albumin 2.7 g/dL Albumin/Globulin Ratio 1.1 PE: GEN: NAD LUNGS: CTAB HEART: RRR ABD: NABS, S/ND/NT NEURO/PSYCH: A & O 3 A/P: N/v - better Diarrhea Antral ulcer s/p APC Anemia - required transfusion yesterday LLE pain - tibial stress fracture, OA H/o colon cancer s/p resection -- She'd like to try advancing diet. Check C Diff for completeness. Continue PPI and Carafate. Hgb to be rechecked at noon today. Justicifation of Admission Dx: Justifications for Admission: Justification of Admission Dx: Yes CAL ORONA Oct 03, 2020 10:53
[2020-10-03 11:00] VITALS: BP 103/56
--- NOTE | 2020-10-03 11:28 | NUR ---
SS following up with discharge planning. SS reviewed pt chart and discussed with pt RN. Pt is currently on room air. COVID19 negative. PT/OT recommended acute rehabilitation. Pt accepted at [facility], ; fax [phone]. Insurance authorization received. Discharge over the weekend was cancelled due to hemoglobin. Per physician, will recheck hemoglobin at 1200 and if stable may discharge today. SS phoned and faxed clinical updates to [facility]. SS will continue to follow for discharge planning.
[2020-10-03] MEDS ORDERED: POTASSIUM CHLORIDE 20MEQ 100 ML IV SCH (13:45)
[2020-10-03] MEDS ORDERED: POTASSIUM CHLORIDE 20 MEQ TABLET.ER. PO ONE (14:00)
[2020-10-03] MEDS ORDERED: POTASSIUM CHLORIDE 10MEQ 100 ML IV SCH (14:00)
[2020-10-03 15:00] VITALS: BP 137/61
--- NOTE | 2020-10-03 15:07 | PATHOLOGY ---
[facility] Accession Number: [id number] . 01 Material submitted: . stomach - GASTRIC ULCER BX . 01 Clinical history: . GI BLEED EGD . 02 Diagnosis: Gastric biopsies, gastric ulcer: - Segments of acute inflammatory exudate, granulation tissue showing acute and chronic inflammation, and gastric antral mucosa showing mild acute and chronic inflammation. See comment. (JPM:[email or web address]; 10/03/2020) [facility] 10/03/2020 1442 Local . 02 Comment: Sections of the gastric ulcer biopsy reveal segments of acute inflammatory excudate, granulation tissue showing acute and chronic inflammation, and gastric antral mucosa showing mild acute and chronic inflammation. A properly controlled immunoperoxidase stain for Helicobacter is negative for Helicobacter organisms. The findings are supportive of the diagnosis of gastric ulcer. There is no evidence of malignancy. (JPM:josefina; 10/03/2020) . . Special stain performed: Immunoperoxidase stain for Helicobacter . 02 Electronically signed: . Philip Sosa MD, Pathologist NPI- [id number] . 01 Gross description: . The specimen is received in formalin, labeled "Neyda Cristobal", "gastric ulcer biopsy". Received are multiple segments of pale schultz-brown soft tissue ranging in size from 0.1 cm to 0.3 cm. The specimen is entirely submitted in cassette A1.([facility]; 10/02/2020) [facility] 10/02/2020 1047 Local . 02 Pathologist provided ICD-10: K29.00, K29.50 . 02 CPT . 984530, [id number] Specimen Comment: A courtesy copy of this report has been sent to [phone] Specimen Comment: [id number], Specimen Comment: Report sent to ,DR NUÑEZ / DR HERRERA Performed at: 01 [facility] [id number] [facility] [address], [place] [id number] MD Fernandez Cortez MD Phone: [phone] Performed at: [facility] [address], [place] [id number] MD Philip Sosa MD Phone: [phone]
--- NOTE | 2020-10-03 15:53 | NUR ---
SS following up with discharge planning. Discharge orders received for [facility], ; fax [phone]. Discharge orders faxed to [facility]. Pt will discharge today and go to [facility] between 1700 and 1730. [facility] to provide transportation. Pt and pt's RN notified.
[2020-10-03] MEDS ORDERED: LOPERAMIDE 2 MG CAPSULE PO PRN (16:15)
[2020-10-03] MEDS ORDERED: POTASSIUM CHLORIDE 10 MEQ TABLET.ER. PO ONE (16:15)
[2020-10-03 16:49] VITALS: BP 137/61
--- NOTE | 2020-10-03 18:36 | NUR ---
Discharge Note: [facility] [place] Discharge instructions and discharge home medications reviewed with Other facility and a copy given. All questions have been answered and understanding verbalized. The following instructions and handouts were given: DISHCARGE PACKET TO TRANSPORT, DISCARGE INSTRUCTIONS TO PATIENT Discontinued lines and drains: Peripheral IV intact. Patient discharged to [facility] with Self via Wheelchair
--- NOTE | 2020-10-03 20:25 | PDOC3 ---
[facility]-Discharge Summary Date of Admission: Date of Admission: Sep 24, 2020 Date of Discharge: Date of Discharge: Oct 03, 2020 Discharge Diagnosis: Discharge Diagnosis: Antral ulcer s/p APC Anemia - required transfusion yesterday LLE pain - tibial stress fracture, OA Gait instability, high fall risk Intractable left knee pain Severe left knee joint osteoarthritis hx colon ADENOCARCINOMA Super Morbid obesity MAURICIO HTN Consults: Consults: GI RECS: She'd like to try advancing diet. Check C Diff for completeness. Continue PPI and Carafate. Hgb to be rechecked at noon today. Hospital Course: Hospital Course: 59 YR OLD FEMALE seen in ER with severe left kneev pain, unable to safely ambulate, cr elevated, is a high fall risk, ortho and nephrology consulted pain has been more severe x 3 weeks, very severe x 2 days, heard knee " pop" 2 days ago, now unable to raise knee, pain worse with any movement, MRI KNEE PENDING ortho consult PT/OT FALL PRECAUTIONS PAIN CONTROL dvt prophylaxis Avoid nephrotoxins, hold babs trend renal fx Nephrology consult avoid nephrotoxins Evaluated by GI and underwent EGD showing post-op gastric antral ulcer s/p apc treatment/biopsies adherent clot Pt tolerated procedure well and her Hb remained stable after 1U PRBC transfusion. By day of discharge, pt was clinically stable and ready for discharge. Rest of hospital course was uneventful Disposition: Disposition/Orders: D/C to Another Facility Activity: Activity: Resume previous activity Diet: Diet: Soft Medications: Home Meds Active Scripts Pantoprazole Sodium (PANTOPRAZOLE SODIUM ) 40 Mg Tablet.dr, 40 MG PO DAILYAC for ulcer, #30 TAB.SR 1 Refill Prov:SUDHIR MCKEON MD 09/30/20 Sucralfate (CARAFATE) 1 Gm Tablet, 1 GM PO BIDAC for ulcer, #60 TAB 1 Refill Prov:SUDHIR MCKEON MD 09/30/20 Reported Medications Hydrocodone/Acetaminophen (Hydrocodone-Acetamin 10-325 mg) 1 Each Tablet, 1 TAB PO PRN Q6HRS PRN for PAIN 09/24/20 Aspirin (ASPIRIN) 81 Mg Tab.chew, 81 MG PO heart for allergies, TAB.CHEW 11/14/18 Hydrochlorothiazide (HYDROCHLOROTHIAZIDE CAPSULE ) 12.5 Mg Capsule, 25 MG PO DAILY for DIURETIC, CAP 0 Refills 11/14/18 Carvedilol (CARVEDILOL ) 6.25 Mg Tablet, 6.25 MG PO BIDWMEALS for CARDIAC, TAB 11/14/18 Discontinued Reported Medications Methylprednisolone (METHYLPREDNISOLONE) 4 Mg Tab.ds.pk, 1 TAB PO UD for arthritis 09/24/20 Tramadol Hcl (TRAMADOL HCL) 50 Mg Tablet, 50 MG PO Q6HRS PRN for PAIN, TAB 11/14/18 Omeprazole Magnesium (PRILOSEC OTC) 20 Mg Tablet.dr, 20 MG PO DAILY for gerd, TAB 11/14/18 Meloxicam (MELOXICAM) 15 Mg Tablet, 15 MG PO DAILY for pain, TAB 11/14/18 Scheduled Aspirin (Aspirin), 81 MG PO heart, (Reported) Carvedilol (Carvedilol ), 6.25 MG PO BIDWMEALS, (Reported) Hydrochlorothiazide (Hydrochlorothiazide Capsule ), 25 MG PO DAILY, (Reported) Pantoprazole Sodium (Pantoprazole Sodium ), 40 MG PO DAILYAC Sucralfate (Carafate), 1 GM PO BIDAC Scheduled PRN Hydrocodone/Acetaminophen (Hydrocodone-Acetamin 10-325 mg), 1 TAB PO PRN Q6HRS PRN for PAIN, (Reported) Discontinued Medications Meloxicam (Meloxicam), 15 MG PO DAILY, (Reported) Methylprednisolone (Methylprednisolone), 1 TAB PO UD, (Reported) Omeprazole Magnesium (Prilosec Otc), 20 MG PO DAILY, (Reported) Tramadol Hcl (Tramadol Hcl), 50 MG PO Q6HRS PRN for PAIN, (Reported) Total Time: Total Time: Total time spent was 35 minutes in preparing scripts, discharge planning with SW and RN, and preparing this discharge summary. Patient seen and examined on day of discharge. Justicifation of Admission Dx: Justifications for Admission: Justification of Admission Dx: Yes JAIRO CORLEY MD Oct 03, 2020 20:25
== END 2020-10-03 17:45 | DRG 562 ==
LOC: ER 19:38 → 2 NORTH 22:20
PROVIDERS: ADMIT Internal Medicine; ATTEND Internal Medicine
PROC: 2W3MX1Z Immobilization of Left Lower Extremity using Splint (ICD-10-PCS; principal; 2020-09-23)
PROC: 0W3P8ZZ Control Bleeding in Gastrointestinal Tract, Via Natural or Artificial Opening Endoscopic (ICD-10-PCS; 2020-09-29)
PROC: 0DB68ZX Excision of Stomach, Via Natural or Artificial Opening Endoscopic, Diagnostic (ICD-10-PCS; 2020-09-29)
PROC: 30233N1 Transfusion of Nonautologous Red Blood Cells into Peripheral Vein, Percutaneous Approach (ICD-10-PCS; 2020-10-02)
DX: S82.142A Displaced bicondylar fracture of left tibia, initial encounter for closed fracture (principal); N17.0 Acute kidney failure with tubular necrosis; K25.4 Chronic or unspecified gastric ulcer with hemorrhage; I42.9 Cardiomyopathy, unspecified; D62 Acute posthemorrhagic anemia; Z68.41 Body mass index [BMI] 40.0-44.9, adult; M17.12 Unilateral primary osteoarthritis, left knee; Z20.822 Contact with and (suspected) exposure to COVID-19; D72.829 Elevated white blood cell count, unspecified; E66.01 Morbid (severe) obesity due to excess calories; E86.0 Dehydration; E87.6 Hypokalemia; F17.200 Nicotine dependence, unspecified, uncomplicated; G89.29 Other chronic pain; I12.9 Hypertensive chronic kidney disease with stage 1 through stage 4 chronic kidney disease, or unspecified chronic kidney disease; K59.00 Constipation, unspecified; N18.30 Chronic kidney disease, stage 3 unspecified; K21.9 Gastro-esophageal reflux disease without esophagitis; T39.395A Adverse effect of other nonsteroidal anti-inflammatory drugs [NSAID], initial encounter; K64.8 Other hemorrhoids; X58.XXXA Exposure to other specified factors, initial encounter; E87.5 Hyperkalemia; Z79.82 Long term (current) use of aspirin; Z79.899 Other long term (current) drug therapy; Z82.49 Family history of ischemic heart disease and other diseases of the circulatory system; Z85.038 Personal history of other malignant neoplasm of large intestine; Z83.3 Family history of diabetes mellitus; Z87.19 Personal history of other diseases of the digestive system; Z90.49 Acquired absence of other specified parts of digestive tract; Y92.89 Other specified places as the place of occurrence of the external cause; Y93.89 Activity, other specified; Y99.8 Other external cause status
CPT/HCPCS: 36415; 36430; 43239; 43255; 73562; 73721; 76770; 80048; 80053; 80069; 81001; 82271; 82274; 83735; 85007; 85018; 85025; 85027; 86850; 86900; 86901; 86920; 87426; 87493; 88305; 88342; 96372; 96374; C9113; J0881; J1170; J1650; J2405; J2704; J2920; J3010; J3480; J7030; P9016; 97110-GP; 97530-GO; 97530-GP; 97535-GO; 99285-25; G0378